=== PATIENT | female | born 1940 | race Caucasian/White ===

== ENCOUNTER → 2018-05-25 16:00 | Outpatient (CLI) | payer MEDICARE, OTHER, SELFPAY ==
--- NOTE | 2018-05-25 16:05 | MR_ITS ---
MR lumbar spine wo con, MR 3-d myelogram/MRCP HISTORY: Low back pain with right leg pain ITS.REASON: ACUTE RIGHT SIDED BACK PAIN WITH SCIATICA, DDD LUMBAR ORDERING PHYSICIAN: Geovany Wright MD PATIENT AGE: 77 years Comparison: None TECHNIQUE: Standard multiplanar multiecho sequences are performed without contrast. 3-D MIP and myelographic images are also rendered and reviewed FINDINGS: There is moderate lumbar scoliosis convex right measuring 28 degrees. This has a rotary component with counterclockwise rotation of the lumbar vertebral bodies from L1 to L5. Prominent artifact is present in the lower thoracic region. Spinal cord ends at the L1 level. T11-T12: Unremarkable. T12-L1: Unremarkable T12-L1: Unremarkable. L1-L2: Degenerative disc disease with bulging disc. This is the apex of the scoliosis. There is facet and ligamentum flavum hypertrophy with moderate right and moderate to severe left-sided foraminal narrowing with bilateral lateral recess narrowing. L2-L3: Mild concentric bulging disc along with moderate facet and ligamentum flavum hypertrophy with moderate to severe left-sided foraminal narrowing L3-L4: Degenerative disc disease with Concentric bulging disc with severe facet and ligamentum flavum hypertrophy. There is moderate to severe canal stenosis at this level with severe bilateral lateral recess narrowing and moderate bilateral foraminal narrowing. There is minimal anterolisthesis of L3 of 3 mm. L4-L5: 3 mm anterolisthesis of L4 with concentric bulging disc along with moderate to severe facet and ligamentum flavum hypertrophy with moderate canal stenosis. There is moderate right-sided foraminal narrowing L5-S1: Mild degenerative disc disease with bulging disc with minimal broad-based central disc protrusion. There is facet and ligamentum flavum hypertrophy with right-sided disc osteophyte complex with moderate to severe right-sided foraminal narrowing. Incidental note made of right renal cysts. IMPRESSION: Abnormal MRI of the lumbar spine with multilevel degenerative disc disease, moderate lumbar scoliosis convex right with facet and ligamentum flavum hypertrophy with lateral recess and foraminal narrowing and canal stenosis. Please see above for detailed description at each level. There is canal stenosis at L3-L4 and L4-L5. Small right foraminal disc osteophyte complex is present at L5-S1 with moderate to severe right-sided foraminal narrowing. Please see above for detailed description at each level
== END ==
PROVIDERS: PCP Internal Medicine Adolescent Medicine; Visit Provider Internal Medicine Adolescent Medicine
DX: M54.41 Lumbago with sciatica, right side (principal); M51.36 Other intervertebral disc degeneration, lumbar region
CPT/HCPCS: 72148; 76376

== ENCOUNTER → 2018-06-12 10:39 | Outpatient (POV) | payer MEDICARE, OTHER, SELFPAY ==
[2018-06-12 10:56] VITALS: BP 184/72; PULSE 77; RESP 18; O2SAT 98
--- NOTE | 2018-06-12 12:50 | HMH.PMCON ---
Assessment and Plan (1) Degenerative disc disease Current visit: Yes Status: Chronic Qualifiers: Spinal region: lumbar Qualified Code(s): M51.36 - Other intervertebral disc degeneration, lumbar region Category: Medical (2) Lumbar radiculopathy Current visit: Yes Status: Chronic Category: Medical Code(s): M54.16 - Radiculopathy, lumbar region - Assessment and plan all Dx Assessment and Plan for all problems:: We will schedule patient for an L4-L5 lumbar epidural steroid injection I believe it would be beneficial given her symptomology. I will follow-up with the patient after her injection and reassess her symptoms at that time. She is continuing her anti-inflammatories. She is been instructed to call the office if she has any issues prior to her next appointment. Dr. Anders has reviewed this note and agrees with this plan of care. This note was dictated using voice recognition software and may contain errors or omissions HPI - Data of Consult Consult date: 06/12/18 Requesting Physician: Afsaneh Salmon APRN Primary Care Provider: Geovany Wright MD - Consult Narrative Reason for consult: Back pain right leg pain History of present illness: Ms. Price is a 77 year old female presents today for consultation in regards to her low back and right leg pain. Patient states that standing for long periods increase her pain while rest and Motrin decrease her pain. She rates her pain a 4 out of 10. She is trying to stay as active possible and continues a home stretching program. Patient does have an abnormal MRI. Patient states that her pain radiates from her back down to her right foot. She does have some numbness and tingling at times. She is not on any anticoagulation therapy. She is currently on an anti-inflammatory regimen. CC: Afsaneh Salmon APRN [facility] History I have reviewed the patient's past medical history: Yes Medical History: Reports:: Hypertension Denies:: Diabetes Mellitus Type 2 - *Social History Smoking Status: Unknown if ever smoked Alcohol Intake: never *Occupational Status:: other Housing: house Household Members: other *Travel in the last 8 weeks: None - Psychiatric History Expresses thoughts of harming self/others: None Suicide Plan Description: No Plan Family Hx:: Unable to obtain Review of Systems - Review of Systems ROS General: no recent weight change, no fever, no sleep disturbances Respiratory: no cough, no shortness of air, no recurring pulmonary infections Cardiovascular/Peripheral Vascular: No chest pain, No palpitations, no edema, no shortness of breath. Gastrointestinal: no incontinence, normal bowel movements reported Genitourinary: no incontinence Musculoskeletal: Back pain, right leg pain Psychiatric: normal mood/ affect Neurological: [denies weakness in extremities], [denies balance issues] Meds Allergies Allergy/AdvReac Type Severity Reaction Status Date / Time No Known Drug Allergies Allergy Unknown Unverified 03/21/17 14:06 [NKDA] Objective Vital signs: Pulse Resp BP Pulse Ox 77 18 184/72 H 98 06/12/18 10:56 06/12/18 10:56 06/12/18 10:56 06/12/18 10:56 Narrative: Physical Exam General: Alert and oriented x3, no acute distress, pleasant and cooperative, [on room air] Lungs: Resps E/U, Symmetrical chest expansion, Eyes: PERRL Musculoskeletal: Flexion and extension of Lumbar spine somewhat guarded secondary to pain, deep tendon reflexes normal, strength in upper and lower extremities [5/5], [abnormal gait noted] positive straight leg raise test on the right side at 30 degrees Neurological: speech clear, business continuity coordinator equal, no gross sensory deficits Opioid Risk Tool - Opioid Risk Tool-Female Family hx alcohol abuse: N Family hx illegal drugs: N Family hx rx drug abuse: N Personal hx alcohol abuse: N Personal hx illegal drugs: N Personal hx rx drug abuse: N Age: 45+ Hx of
--- NOTE | 2018-06-12 12:53 | P.CONS_ITS ---
Assessment and Plan (1) Degenerative disc disease Current visit: Yes Status: Chronic Qualifiers: Spinal region: lumbar Qualified Code(s): M51.36 - Other intervertebral disc degeneration, lumbar region Category: Medical (2) Lumbar radiculopathy Current visit: Yes Status: Chronic Category: Medical Code(s): M54.16 - Radiculopathy, lumbar region - Assessment and plan all Dx Assessment and Plan for all problems:: We will schedule patient for an L4-L5 lumbar epidural steroid injection I believe it would be beneficial given her symptomology. I will follow-up with the patient after her injection and reassess her symptoms at that time. She is continuing her anti-inflammatories. She is been instructed to call the office if she has any issues prior to her next appointment. Dr. Anders has reviewed this note and agrees with this plan of care. This note was dictated using voice recognition software and may contain errors or omissions HPI - Data of Consult Consult date: 06/12/18 Requesting Physician: Afsaneh Salmon APRN Primary Care Provider: Geovany Wright MD - Consult Narrative Reason for consult: Back pain right leg pain History of present illness: Ms. Price is a 77 year old female presents today for consultation in regards to her low back and right leg pain. Patient states that standing for long periods increase her pain while rest and Motrin decrease her pain. She rates her pain a 4 out of 10. She is trying to stay as active possible and continues a home stretching program. Patient does have an abnormal MRI. Patient states that her pain radiates from her back down to her right foot. She does have some numbness and tingling at times. She is not on any anticoagulation therapy. She is currently on an anti-inflammatory regimen. CC: Afsaneh Salmon APRN [facility] History I have reviewed the patient's past medical history: Yes Medical History: Reports:: Hypertension Denies:: Diabetes Mellitus Type 2 - *Social History Smoking Status: Unknown if ever smoked Alcohol Intake: never *Occupational Status:: other Housing: house Household Members: other *Travel in the last 8 weeks: None - Psychiatric History Expresses thoughts of harming self/others: None Suicide Plan Description: No Plan Family Hx:: Unable to obtain Review of Systems - Review of Systems ROS General: no recent weight change, no fever, no sleep disturbances Respiratory: no cough, no shortness of air, no recurring pulmonary infections Cardiovascular/Peripheral Vascular: No chest pain, No palpitations, no edema, no shortness of breath. Gastrointestinal: no incontinence, normal bowel movements reported Genitourinary: no incontinence Musculoskeletal: Back pain, right leg pain Psychiatric: normal mood/ affect Neurological: [denies weakness in extremities], [denies balance issues] Meds Allergies Allergy/AdvReac Type Severity Reaction Status Date / Time No Known Drug Allergies Allergy Unknown Unverified 03/21/17 14:06 [NKDA] Objective Vital signs: Pulse Resp BP Pulse Ox 77 18 184/72 H 98 06/12/18 10:56 06/12/18 10:56 06/12/18 10:56 06/12/18 10:56 Narrative: Physical Exam General: Alert and oriented x3, no acute distress, pleasant and cooperative, [on room air] Lungs: Resps E/U, Symmetrical
== END ==
PROVIDERS: PCP Internal Medicine Adolescent Medicine; Visit Provider Clinical Nurse Specialist Family Health
DX: M51.16 Intervertebral disc disorders with radiculopathy, lumbar region (principal)
CPT/HCPCS: 99202

== ENCOUNTER → 2018-07-30 14:30 | Outpatient (POV) | payer MEDICARE, OTHER, SELFPAY ==
[2018-07-30 14:59] VITALS: BP 162/87; PULSE 81; RESP 18; O2SAT 98; BMI 26.2
--- NOTE | 2018-07-30 15:15 | XR_ITS ---
XR knee RT 3V HISTORY: ITS.REASON: RT KNEE PAIN ORDERING PHYSICIAN: Afsaneh Salmon APRN PATIENT AGE: 77 years COMPARISON: None FINDINGS: No fracture or dislocation. No lytic or blastic change. Normal mineralization. There are mild osteoarthritic changes of the lateral compartment. Small suprapatellar effusion is suspected. No other significant findings IMPRESSION: Mild osteoarthritis of lateral compartment
--- NOTE | 2018-07-31 08:27 | P.CONS_ITS ---
[facility] Pain Management SOAP Note Subjective:: Patient is a pleasant 77-year-old white female who presents today for follow-up after lumbar epidural steroid injection. Patient states that the radiating pain down her right leg has gone away however she is having extreme knee pain at this time. Patient states that difficult for her to get around. Patient does not have any imaging of her knee. We will send her for some today. She rates her pain in her knee a 9 out of 10. ROS General: no recent weight change, no fever, no sleep disturbances Respiratory: no cough, no shortness of air, no recurring pulmonary infections Cardiovascular/Peripheral Vascular: No chest pain, No palpitations, no edema, no shortness of breath. Gastrointestinal: no incontinence, normal bowel movements reported Genitourinary: no incontinence Musculoskeletal: Right knee pain Psychiatric: normal mood/ affect Neurological: [denies weakness in extremities], [denies balance issues] Objective:: Physical Exam General: Alert and oriented x3, no acute distress, pleasant and cooperative, [on room air] Lungs: Resps E/U, Symmetrical chest expansion, [CTA bilateral] Eyes: PERRL Musculoskeletal: Flexion and extension of lumbar spine somewhat guarded secondary to pain, deep tendon reflexes normal, strength in upper and lower ex tremities [5/5], [abnormal gait noted] decreased range of motion right knee Neurological: speech clear, senior field service engineer equal, no gross sensory deficits Assessment:: Degenerative disc disease lumbar spine with lumbar radiculopathy, right knee pain Plan:: We will send the patient for x-ray I believe she may benefit from going to see Ortho in regards to her knee pain. I believe that would be beneficial before she returns we can continue to discuss her back pain.. Dr. Anders has reviewed this note and agrees with this plan of care. This note was dictated using voice recognition software and may contain errors or omissions
== END ==
PROVIDERS: PCP Internal Medicine Adolescent Medicine; Visit Provider Clinical Nurse Specialist Family Health
DX: M51.16 Intervertebral disc disorders with radiculopathy, lumbar region (principal); M25.561 Pain in right knee
CPT/HCPCS: 73562; 99212

== ENCOUNTER → 2018-11-06 12:59 | Outpatient (CLI) | payer MEDICARE, OTHER, SELFPAY ==
--- NOTE | 2018-11-06 13:09 | XR_ITS ---
XR DEXA axial skeleton HISTORY: ITS.REASON: POST MENOPAUSAL ORDERING PHYSICIAN: Geovany Wright MD PATIENT AGE: 77 years COMPARISON: None FINDINGS: The BMD measured at the Femur total right femoral neck is 0.670 g/cm squared with a T score of -2.7. This is considered Osteoporotic according to the World Health Organization criteria. Fracture risk is High. Treatment is advised. IMPRESSION: Osteoporosis with high fracture risk. Treatment is advised. Suggest follow-up exam November 2019. Incidental note is made of lumbar scoliosis convex right.
== END ==
PROVIDERS: PCP Internal Medicine Adolescent Medicine; Visit Provider Internal Medicine Adolescent Medicine
DX: Z13.820 Encounter for screening for osteoporosis (principal); Z78.0 Asymptomatic menopausal state
CPT/HCPCS: 77080

== ENCOUNTER → 2018-11-20 13:55 | Outpatient (CLI) | payer MEDICARE, OTHER, SELFPAY ==
--- NOTE | 2018-11-20 13:59 | XR_ITS ---
PROCEDURE: XR KNEE RT 4V CLINICAL INDICATION: right knee pain; preop for TKA COMPARISON: from 07/30/2018 FINDINGS: There are severe osteoarthritic changes of the lateral compartment with mild flattening of the lateral femoral condyle. These findings are slightly worse compared to 07/30/2018. Osteosclerosis is present at the lateral femoral condyle and lateral tibial plateau. There is mild osteoarthritis of the patellofemoral joint with a small knee joint effusion. 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
--- NOTE | 2018-11-20 13:59 | XR_ITS ---
PROCEDURE: XR HIP RT 2-3V W/PELVIS CLINICAL INDICATION: right hip pain COMPARISON: No exams were available for comparison FINDINGS: There are mild osteoarthritic changes of the right hip. No fracture or dislocation. No lytic or blastic change. Incidental note also made of mild osteoarthritis of the SI joints. 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
== END ==
PROVIDERS: PCP Internal Medicine Adolescent Medicine; Visit Provider Orthopaedic Surgery
DX: M25.551 Pain in right hip (principal); M17.11 Unilateral primary osteoarthritis, right knee
CPT/HCPCS: 73502; 73564

== ENCOUNTER → 2018-11-27 12:24 | Outpatient (CLI) | payer MEDICARE, OTHER, SELFPAY ==
--- NOTE | 2018-11-27 12:32 | XR_ITS ---
PROCEDURE: XR CHEST 2V CLINICAL HISTORY: HTN, PRE OP COMPARISON: No exams were available for comparison FINDINGS: The cardiomediastinal silhouette and pulmonary vascularity are within normal limits. The lungs are clear without infiltrates, suspicious nodules, or pleural effusions. No acute bony abnormalities. IMPRESSION: No acute findings. Dictated by: Shawn Reece MD 11/27/2018 13:23 Signed by: <Electronically signed by Shawn Reece MD in OV> 11/27/2018 13:23
[2018-11-27 13:11] LABS: Microscopic, Urine URINE MICROSCOPIC (MICROSCOPIC)
[2018-11-27 14:43] LABS: Appearance,Urine CLEAR (Clear); Bilirubin,Urine Negative (Negative); Blood, Urine Negative (Negative); Color,Urine YELLOW (Yellow); Glucose,Urine (UA) Negative (Negative); Ketones,Urine Negative (Negative); Leukocyte Esterase,Urine TRACE (Negative); Nitrate,Urine Negative (Negative); PH,Urine 5.5 (5.0-8.5); Protein,Urine Negative (Negative); Urobilinogen,Urine 0.2 EU/dl (0.2)
[2018-11-27 15:01] LABS: Basophils % 0.5 % (0.1-2.0); Eosinophils # 0.2 K/mm3 (0.0-0.4); Eosinophils % 3.8 % (0.1-12.0); Hematocrit 37.8 % (37.0-47.0); Hemoglobin 12.1 g/dL (12.2-16.2); Lymphocytes # 1.7 K/mm3 (0.7-4.5); Lymphocytes % 28.6 % (10-50); Mean Corpuscular Hemoglobin 29.4 pg (27.0-31.2); Mean Corpuscular Volume 91.7 fl (81-99); Mean Platelet Volume 7.9 fl (7.4-10.4); Monocytes # 0.4 K/mm3 (0.1-1.0); Monocytes % 6.3 % (1.7-9.3); Neutrophils # 3.6 K/mm3 (1.8-7.8); Neutrophils % 60.8 % (37.0-80.0); Platelet Count 172 K/mm3 (142-424); Red Blood Count 4.13 M/mm3 (4.20-5.40); Red Cell Distribution Width 15.1 % (11.5-17.5); White Blood Count 5.8 K/mm3 (4.8-10.8)
[2018-11-27 15:02] LABS: Bacteria,Urine 1+ /lpf
[2018-11-27 15:50] LABS: Alanine Aminotransferase 16 U/L (12-78); Albumin Level 3.7 gm/dL (3.4-5.0); Albumin/Globulin Ratio 1.5 (1.1-1.8); Alkaline Phosphatase 66 U/L (46-116); Anion Gap 14.8 mEq/L (5-15); Aspartate Amino Transferase 15 U/L (15-37); Bilirubin,Total 0.3 mg/dL (0.2-1.0); Blood Urea Nitrogen 23 mg/dL (7-18); Calcium 8.6 mg/dL (8.5-10.1); Carbon Dioxide 25 mmol/L (21.0-32.0); Chloride 106 mmol/L (98-107); Creatinine,Serum 1.49 mg/dL (0.55-1.02); Estimated Glomerular Filt Rate 34 ml/min (>60); GFR (African American) 41 ML/MIN (>60); Globulin 2.5 gm/dl (1.3-3.2); Glucose 89 mg/dL (74-106); Potassium 4.8 mmoL/L (3.5-5.1); Sodium 141 mmol/L (136-145); Total Protein,Serum 6.2 gm/dL (6.4-8.2)
== END ==
PROVIDERS: PCP Internal Medicine Adolescent Medicine; Visit Provider Orthopaedic Surgery
DX: Z01.818 Encounter for other preprocedural examination (principal); M17.11 Unilateral primary osteoarthritis, right knee
CPT/HCPCS: 36415; 71046; 80053; 81001; 85025; 86850

== ENCOUNTER → 2018-12-16 09:31 | Outpatient (CLI) | payer MEDICARE, OTHER, SELFPAY ==
[2018-12-16 10:19] LABS: Basophils % 0.8 % (0.1-2.0); Eosinophils # 0.2 K/mm3 (0.0-0.4); Hematocrit 39.1 % (37.0-47.0); Hemoglobin 12.6 g/dL (12.2-16.2); Lymphocytes # 1.3 K/mm3 (0.7-4.5); Lymphocytes % 27.6 % (10-50); Mean Corpuscular HGB Conc 32.2 g/dL (31.8-35.4); Mean Corpuscular Hemoglobin 29.5 pg (27.0-31.2); Mean Corpuscular Volume 91.5 fl (81-99); Mean Platelet Volume 8.2 fl (7.4-10.4); Monocytes # 0.3 K/mm3 (0.1-1.0); Monocytes % 7.1 % (1.7-9.3); Neutrophils # 2.8 K/mm3 (1.8-7.8); Neutrophils % 60.6 % (37.0-80.0); Platelet Count 169 K/mm3 (142-424); Red Blood Count 4.27 M/mm3 (4.20-5.40); White Blood Count 4.7 K/mm3 (4.8-10.8)
[2018-12-16 10:29] LABS: Alanine Aminotransferase 17 U/L (12-78); Albumin Level 3.9 gm/dL (3.4-5.0); Albumin/Globulin Ratio 1.3 (1.1-1.8); Alkaline Phosphatase 71 U/L (46-116); Anion Gap 13.8 mEq/L (5-15); Aspartate Amino Transferase 17 U/L (15-37); Bilirubin,Total 0.5 mg/dL (0.2-1.0); Blood Urea Nitrogen 28 mg/dL (7-18); Calcium 8.9 mg/dL (8.5-10.1); Carbon Dioxide 26 mmol/L (21.0-32.0); Chloride 105 mmol/L (98-107); Creatinine,Serum 1.24 mg/dL (0.55-1.02); Estimated Glomerular Filt Rate 42 ml/min (>60); GFR (African American) 51 ML/MIN (>60); Glucose 94 mg/dL (74-106); Potassium 4.8 mmoL/L (3.5-5.1); Sodium 140 mmol/L (136-145); Total Protein,Serum 6.9 gm/dL (6.4-8.2)
== END ==
PROVIDERS: PCP Internal Medicine Adolescent Medicine; Visit Provider Orthopaedic Surgery
DX: Z01.818 Encounter for other preprocedural examination (principal)
CPT/HCPCS: 36415; 80053; 85025; 86850

== ENCOUNTER 2018-12-17 10:34 | Inpatient (IN) ==
[2018-12-17 12:01] LABS: Microscopic, Urine URINE MICROSCOPIC (MICROSCOPIC)
--- NOTE | 2018-12-17 12:01 | Progress Note ---
[facility] Anesthesia Checklist - Patient Identification Patient Identification: Arm Band, Verbal (Name & ) - Structural Data Admitted From: Home Planned Operative Procedure/s: Right TKA Consent for Planned Operative Procedure(s) Verified: Yes Verified Documents: Surgical Consent, History and Physical - NPO Status Verified Time NPO: 00:00 - Chart Verification Results Verified: CBC, BMP, UA - Additional verifications Anesthesia Reactions: No Hx Blood Transfusions: Yes Blood Transfusion Reaction: No - Airway Assessment C-Spine Mobility Assessed: Yes TMJ Mobility Assessed: Yes Dentition: Dentures-good fit (Upper denture, lower missing teeth) - Neurological Assessment Level of Consciousness: Awake, Alert, Appropriate, Follows Commands Hx Seizures: No Numbness or tingling in extremities: No - Anesthesia Plan Anesthesia Risk discussed: Yes Anesthesia Plan: Verified ASA Class: II Anesthesia Type: General (with Femoral/sciatic nerve block) [facility] History I have reviewed the patient's past medical history: Yes Medical History: Reports:: Cancer (melanoma), Hyperlipidemia, Hypertension Denies:: Diabetes Mellitus Type 1, Diabetes Mellitus Type 2, Internal Pacemaker, MRSA, Seizures *Have you ever received a pneumonia vaccine?: No *Have you received a flu vaccine this season?: Yes Other Medical History: Reports: Anemia, Arthritis, Hypothyroidism. Denies: Blood Transfusion Reaction Anesthesia experience/problems:: no complications Other Surgeries: Yes: Appendectomy, Colonoscopy, Hysterectomy-Total. No: Pacemaker Amputation: No Fractures: No - *Social History Educational Level: Attended High School Smoking Status: Never smoker Alcohol Intake: never Substance Use Type: denies use *Occupational Status:: retired Housing: house Household Members: other *Travel in the last 8 weeks: None Family Hx:: No significant family history
[2018-12-17 12:02] LABS: Appearance,Urine CLEAR (Clear); Bilirubin,Urine Negative (Negative); Blood, Urine Negative (Negative); Color,Urine YELLOW (Yellow); Glucose,Urine (UA) Negative (Negative); Ketones,Urine TRACE (Negative); Leukocyte Esterase,Urine Negative (Negative); Protein,Urine Negative (Negative); Specific Gravity, Urine 1.015 (1.005-1.030); Urobilinogen,Urine 0.2 EU/dl (0.2)
[2018-12-17 12:32] LABS: Bacteria,Urine Trace /lpf; WBC,Urine Occasional #/hpf (0-3)
--- NOTE | 2018-12-17 16:58 | Progress Note ---
[facility] Anesthesia Record Part II Discharge Time: 17:18 Destination: Surgical Day Care (OP Surgery) PACU nurse assessment reviewed?: Yes Patient Condition:: Good Anesthesia Complications:: None Swallowing reflex intact?: Yes Cyanosis?: No
--- NOTE | 2018-12-17 16:58 | Progress Note ---
[facility] Anesthesia Record Part I Intake, IV Amount: 1,700 Estimated blood loss (mL): 50 Urine output (mL): 300 Blood Products used (#): none Blood Pressure: 132/76 SaO2: 98 Pulse Rate: 80 Respiratory Rate: 20 Temperature: 98.3 F Patient is:: Nasal O2, Stable Stable to PACU at:: 16:48
--- NOTE | 2018-12-17 17:18 | Operative Note ---
Date of procedure: 12/17/18 Pre-op Diagnosis:: Advanced degenerative arthritis, right knee Post-op Diagnosis:: Same Procedure performed:: Cemented total knee arthroplasty, right Surgeon:: Jorge Dutta MD News Technical Director(s):: Tiara Das TUBE BLOWER:: Geovany Casper Anesthesia: GETA, regional (Sciatic and femoral nerve blocks) Estimated blood loss (mL): 50 Clinical Note:: Patient is a 77-year-old female with end-stage [id number] predominantly lateral compartment osteoarthritis of the RIGHT knee with a progressive valgus deformity and flexion contracture presented with unremitting severe pain not relieved by conservative management. The pain is advanced to the point that it is becoming a hazard for her with risk of falling and injuring herself. A Total Knee Arthroplasty is indicated to relieve the pain, improve function, reduce the risk of falls and improve quality of life. Please refer to my office note for full details. Operative findings:: As noted on the preoperative evaluation, the knee joint had 10 degrees of fixed flexion and 10 degrees fixed valgus deformity. Preoperative knee range of flexion under anesthesia was 10-115 of flexion only. As seen on the x-rays, there are advanced degenerative changes predominantly involving the lateral and patellofemoral compartments. The menisci and cruciate ligaments are significantly degenerated. There is osteophyte formation over all 3 compartments. Overall bone quality is good. Operative note:: On the day of the surgery the patient and her family were seen in the preoperative area. I have reviewed the clinical and x-ray findings with the patient. I again discussed the diagnosis, natural history and management options in detail including both nonsurgical and surgical. She has end-stage degenerative arthritis of her RIGHT knee and has failed to respond satisfactorily to conservative management so far and has opted for a RIGHT total knee arthroplasty. Her right knee joint is stiff and painful, and is limiting her mobility, ADLs and quality of life. Also her right knee gives out and she is at risk of falls resulting in fractures. She mobilizes with a cane as needed. We again discussed the details of the procedure, risks and benefits and alternatives in detail. The complications discussed include but are not limited to infection, injury to nerves and blood vessels including injury to popliteal artery, injury to tendons and ligaments, DVT and PE, fat embolism, intraoperativ e fracture, limb length inequality, patella fracture, patellofemoral instability, patellar clunk syndrome, quadriceps and patellar tendon rupture, implant failure, component loosening, periprosthetic femur and tibia fractures, stiffness(arthrofibrosis), limp, incomplete relief of pain, incomplete functional recovery, likely need for further surgery in future including revision and anesthetic complications including heart attack, stroke and even . We have discussed the likelihood of needing blood transfusion and the adverse effects thereof. We discussed how any of these events can be dev astating. We have discussed nonsurgical alternatives as well. Patient understands wishes to proceed with a RIGHT total knee arthroplasty and I believe that she is fully informed as to the risks, benefits, and alternatives including nonsurgical alternatives. We also discussed the postoperative course including the rehab and physical therapy required. A physical examination was performed and documented. Patient understood the risks, agreed to proceed with surgery, signed the consent form and no guarantees or assurances were given or implied. The limb was appropriately marked and initialed by me. The patient was then brought to the operating room and a general anesthesia was administered by the hand etcher. Prior to that she had femoral and sciatic nerve blocks in the pre-anesthetic area. The patient was then positioned supine on the operating table. All the bony prominences were appropriately padded. Examination of the right knee joint under anesthesia demonstrated 10 degrees of valgus deformity which is partially correctable. She also has 10 degrees of flexion deformity and flexion range is from 10 degrees to 115 degrees. Knee joint is ligamentously stable. A well-padded tourniquet cuff was placed high over the upper thigh. The RIGHT knee was then prepped with isopropyl alcohol followed by chlorhexidine and draped in the usual sterile fashion. Prior to this, patient had used Hibiclens for a total of 5 days prior to the surgery and also used topical intranasal Bactroban. The entire operative team wore isolation suits and the Operating Room traffic was controlled. The skin incision was marked for a medial parapatellar approach to the knee joint. The entire operative site was sealed off with Ioban drape. A preprocedure timeout was performed as per hospital protocol. At the start of the procedure administration of prophylactic antibiotics (Ancef and vancomycin) was confirmed with the hand etcher. One more gram of Ancef was administered at around 2 hours into the surgery. Also patient received 1 g of IV tranexamic acid before starting the procedure and 1 more gram during wound closure to reduce the postoperative blood loss. A preprocedure timeout was performed as per hospital protocol. The limb was exsanguinated with Esmarch bandage, the knee joint flexed beyond 90 and the tourniquet cuff was inflated to 300 mm Hg. Please see the nursing records for a total tourniquet time. I then made a midline incision utilizing a #10 scalpel blade. Electrocautery was used to seal off subcutaneous vessels. The extensor mechanism was exposed, marked and a curvilinear incision made for a medial parapatellar approach using the scalpel blade. The patella was everted carefully and the fat pad resected to allow sufficient visualization of the proximal tibia. Osteophyte formation was noted mainly over the patellofemoral and lateral compartments. The osteophytes were removed with rongeurs. The intercondylar notch also had osteophytes and the anterior cruciate ligament noted to be degenerate. The menisci were also degenerate and the anterior aspects of both menisci were resected. Only a minimal medial release was performed just enough to expose the top of the tibia and the medial osteophytes which were excised. The Annamarie line and epicondylar axis were marked over the distal femur. A step drill was used to open the intramedullary canal; a sli ghtly medial entry point was chosen and the IM distal femoral cutting jig was placed. The jig was pinned into position and the intramedullary karen removed. The distal cut was made at 6 degrees of valgus. This cut sufficient amount of the distal medial and lateral condyles. Then the posterior referencing sizing jig was placed and sized best at a size 7 femur for the Jono persona system. We then placed the 4-in-1 cutting block in position in 3 degrees of external rotation. Cross pins were added for stabilizing the block and the donny wing utilized to ensure notching of the anterior cortex would not occur. The anterior cut was made followed by the posterior cut then the posterior chamfer and finally the anterior chamfer cuts in that order. Soft tissues were protected during this with careful retraction using the Z retractors. We checked for trueness of cuts and then moved on to the tibia. The extra medullary guide was placed and aligned from the medial one third of the tibial tubercle down to the second metatarsal base. We pinned cutting block in position for minimal resection of the tibia from the lateral side which was more severely involved with arthritis, checked the alignment, protected the soft tissues with appropriate retractors and resected with the Jaspreet saw. The resected tibial plateau articular surface was removed and sized it at a size H. We ensured correctness of the cut and correct posterior slope (5 degrees) and carefully preserved the posterior cruciate ligament. Using the laminar wirer passenger car to distract the bones, we carefully resected the remaining portions of the medial and lateral menisci, removed the osteophytes from the posterior femoral condyles and the tibial plateau. I then tried placing the spacer block and noted the space to be too narrow in both flexion and extension. Therefore, I recut the tibia at +4 using the previous pinholes for the cutting block. I then checked the flexion and extension gaps using the 10 mm spacer block and found them to be tight on the lateral side. I then performed appropriate lateral releases with pie crusting technique, first of the lateral collateral ligament and popliteus. I also slightly recessed the PCL and performed posterior capsular release. This gave us a stable and well balanced flexion gap. The knee was still tight in extension. Therefore, I performed a pie crusting of the iliotibial band which gave us a sufficient lateral release balancing the knee in both flexion and extension. During the process of lateral release, I checked the flexion and extension gaps repeatedly to make sure we did not create an unstable knee. I then placed the femoral and tibial trial inserts and ranged the knee through full flexion and extension and noted it to be stable in both flexion and extension with equal and well balanced gaps. The patella was noted to be tracking centrally over the femoral trial implant. We then everted the patella and measured the thickness with calipers. The patella was sized at 32 mm and measured 23 mm thick. A minimal resection (8.5mm) of the patella was carried out using the appropriate cutting guide. I then made the holes for a 3 pegged patellar button using the patella peg drill guide. We had lateralized the femur and medialized the patella intentionally for a better patellar tracking. We placed trial components and noted that a 10 mm thick polyethylene to fit best. This gave us appropriate range of motion with proper ligamentous stability. We allowed this to be free-floating and then checked it and made sure it was in appropriate position in relation to the tibial tubercle. We also used tibial alignment karen to check for satisfactory position of the base plate and markings were made with electrocautery on the proximal tibia. We then completed the f emoral preparation by making lug holes for the femoral component and removed the trial components leaving the tibial base plate in position. I then pinned the tibial base plate to the top of the tibia in correct alignment and completed the drilling and broaching of the proximal tibia. I then placed an appropriately prepared bone plug into the hole in the distal femur. I then copiously irrigated the knee with pulse lavage and then dried the cut surfaces. We then cemented the tibial tray, the femoral component, and placed a 10 mm trial polyethylene insert and brought the knee into full extension. We then cemented the 3 pegged patellar button and held it with a clamp. We allowed the cement to set and then inspected the knee joint and removed excess cement with an osteotome. We then placed the 10 mm definitive polyethylene tibial insert ensuring that the dovetails fit appropriately and that the polyethylene was down and seated into the tibial tray properly. The knee joint was put through range of motion and noted to be stable in both AP and ML direction; the patella was noted to be tracking appropriately with no thumb technique. The knee was fully extending and flexion was up to 150 degrees on the table and was noted to be stable throughout the range of motion. The knee joint was then soaked with dilute Betadine (0.35 percent) solution for 3 minutes followed by suctioning of the solution and pulsatile lavage with the 1 L of normal saline. The tourniquet was deflated and hemostasis obtained with diathermy cautery. Another gram of tranexamic acid was given intravenously by t hand etcher at the time of wound closure. The knee joint was again thoroughly irrigated with the pulse lavage and good hemostasis was confirmed before proceeding with wound closure. The capsule/extensor mechanism was closed with #1 Vicryl [id number] sutures ensuring a watertight closure. Next the subcutaneous tissue was closed with 2-0 Vicryl interrupted sutures. The skin was closed with subcuticular 4-0 Monocryl sutures, Dermabond and Steri-Strips. Sterile dressings were applied consisting of Xeroform, 4 x 4s, ABDs, soft roll and secured in place with Guy wrap. No drains were placed. The patient was then transferred from the operating table onto the bed. The tibialis posterior and dorsalis pedis pulses were noted 2+ with good capillary refill in the foot. The patient was then reversed from the anesthetic and transported to the postoperative recovery area in a stable condition. Patient tolerated the procedure well and there were no immediate complications. The swab, needle and instrument counts were correct, according to the scrub team, at the end of the procedure. Portable x-rays of the RIGHT knee were obtained in the recovery area which showed the components were well fixed in a satisfactory position without any complications. The knee was placed in a knee immobilizer which should be continued when standing and walking, until she regains full quadriceps control. Postoperatively, institute and continue standard precautions and physical therapy for a standard total knee arthroplasty starting on postoperative day 1. Patient can be mobilized full weightbearing as tolerated. Implants: Jono Persona cruciate-retaining narrow femoral component, size 7, RIGHT Jono Persona, stemmed RIGHT tibial base plate- size E Jono Persona all poly-patellar component-32 mm/8.5 mm Jono Persona Vivacit-E highly cross-linked polyethylene medial Congruent articular surface, RIGHT size e-F/CR x 10 mm Biomet Refobacin bone cement R x2. Industry sales representative consultant: Doug Moreira ([employer]) Tourniquet time (min): 110 Condition: stable Disposition: PACU Specimens:: None Complications:: None
--- NOTE | 2018-12-17 17:39 | Consult Report ---
*Admission Date: 12/17/18 *Reason for consult:: Medical management status post right knee replacement *History of present illness: 77-year-old white female with history of thyroid disease, severe osteoarthritis of knees and remote history of temporal arteritis-now in remission, who underwent total knee replacement surgery this morning. She is doing well postoperatively, consulted for medical management. [facility] History I have reviewed the patient's past medical history: Yes Medical History: Reports:: Cancer (melanoma), Hyperlipidemia, Hypertension Denies:: Diabetes Mellitus Type 1, Diabetes Mellitus Type 2, Internal Pacemaker, MRSA, Seizures *Have you ever received a pneumonia vaccine?: No *Have you received a flu vaccine this season?: Yes Other Medical History: Reports: Anemia, Arthritis, Hypothyroidism. Denies: Blood Transfusion Reaction Anesthesia experience/problems:: no complications Other Surgeries: Yes: Appendectomy, Colonoscopy, Hysterectomy-Total. No: Pacemaker Amputation: No Fractures: No - *Social History Educational Level: Attended High School Smoking Status: Never smoker Alcohol Intake: never Substance Use Type: denies use *Occupational Status:: retired Housing: house Household Members: other *Travel in the last 8 weeks: None Family Hx:: No significant family history Review of Systems - Review of Systems Review of systems:: pertinent systems reviewed and negative unless documented below Meds Home Medications Medication Instructions Recorded Confirmed Type Aspirin [Aspir 81] 81 mg PO DAILY 06/22/18 12/17/18 History Calcium Crb,Cit/D3/Min34/Shawn 1 each PO DAILY 06/22/18 12/17/18 History [Citracal + Bone Density Tablet] Carvedilol [Carvedilol 25mg Tab] 25 mg PO BID 06/22/18 12/17/18 History Diclofenac Sodium [Diclofenac 75mg 75 mg PO BID 06/22/18 12/17/18 History Tab] Spironolactone 25 mg PO DAILY 06/22/18 12/17/18 History Chlorhexidine Gluconate 1 applic TOPICAL Q5M 12/14/18 12/17/18 History mupirocin 2 % nasal ointment 2 % INTRANASAL BID 12/14/18 12/17/18 History Levothyroxine Sodium 88 mcg PO DAILY 12/17/18 12/17/18 History [Levothyroxine 88mcg (0.088mg) Tab] Allergies Allergy/AdvReac Type Severity Reaction Status Date / Time adhesive Allergy Mild Rash Verified 12/17/18 17:32 Exam Vital signs and Labs for Last 24 Hours: Temp Pulse Resp BP Pulse Ox 98.3 F 80 20 132/76 97 12/17/18 16:58 12/17/18 16:58 12/17/18 16:58 12/17/18 16:58 12/17/18 11:11 Laboratory Results - last 24 hr 12/17/18 11:55: Urine Color Yellow, Urine Appearance Clear, Urine pH 7.0, Ur Specific [place] 1.015, Urine Protein Negative, Urine Glucose (UA) Negative, Urine Ketones Trace, Urine Blood Negative, Urine Nitrate Negative, Urine Bilirubin Negative, Urine Urobilinogen 0.2, Ur Leukocyte Esterase Negative, Urine RBC None, Urine WBC Occasional, Ur Squamous Epith Cells None, Urine Bacteria Trace I & O for Last 24 hours: Intake & Output 12/15/18 12/16/18 12/17/18 12/18/18 11:59 11:59 11:59 11:59 Intake Total 1700 / 1700 Balance 1700 / 1700 Weight 151 lb Narrative: Patient is sleepy postoperatively from anesthesia but when awakened is alert, recognizes me, oriented to time and place. ENT exam clear. No JVD. Heart rate regular. No murmurs, lungs clear in the anterior hayes, abdomen soft nontender. Good hydration status. Right leg is warm and well-perfused, left leg warm and well-perfused, compression devices on left leg. Able to move all extremities well. Internal Medicine - CN: Reslt - Labs Labs: Urine 12/17/18 Range/Units 11:55 Urine Color Yellow (Yellow) Urine Appearance Clear (Clear) Urine pH 7.0 (5.0-8.5) Ur Specific [place] 1.015 (1.005-1.030) Urine Protein Negative (Negative) Urine Glucose (UA) Negative (Negative) Assessment and Plan (1) Status post right knee replacement Current visit: Yes Status: Acute Category: Surgical Code(s): Z96.651 - Presence of right artificial knee joint Overall doing well, on appropriate anticoagulation therapy. Close follow-up (2) Hypothyroidism Current visit: Yes Status: Acute Category: Medical Code(s): E03.9 - Hypothyroidism, unspecified (3) Hypertension Current visit: Yes Status: Acute Category: Medical Code(s): I10 - Essential (primary) hypertension
[2018-12-18 06:51] LABS: Eosinophils % 0.2 % (0.1-12.0); Hematocrit 30.6 % (37.0-47.0); Hemoglobin 9.9 g/dL (12.2-16.2); Lymphocytes # 0.5 K/mm3 (0.7-4.5); Lymphocytes % 8.1 % (10-50); Mean Corpuscular HGB Conc 32.4 g/dL (31.8-35.4); Mean Corpuscular Volume 90.9 fl (81-99); Mean Platelet Volume 8.3 fl (7.4-10.4); Monocytes # 0.3 K/mm3 (0.1-1.0); Monocytes % 5.9 % (1.7-9.3); Neutrophils # 4.7 K/mm3 (1.8-7.8); Neutrophils % 85.8 % (37.0-80.0); Platelet Count 141 K/mm3 (142-424); Red Blood Count 3.36 M/mm3 (4.20-5.40); Red Cell Distribution Width 14.3 % (11.5-17.5); White Blood Count 5.5 K/mm3 (4.8-10.8)
[2018-12-18 07:13] LABS: Anion Gap 15.9 mEq/L (5-15)
[2018-12-18 07:30] LABS: Calcium 7.9 mg/dL (8.5-10.1)
--- NOTE | 2018-12-18 07:38 | Pharmacy Consult Notes ---
[facility] Pharmacy VTE Monitoring - Patient Demographics Admission date: 12/17/18 Report Date: 12/18/18 Time: 07:38 Allergies/Adverse Reactions: Patient Allergies adhesive Allergy (Mild, Verified 12/17/18 17:32) Rash Height: 1.6 m Weight: 70.931 kg Patient Problems: Current Active Problems Status post right knee replacement (Acute) Hypothyroidism (Acute) Hypertension (Acute) - VTE Risk Labs: VTE Related Lab Results Hgb 9.9 g/dL (12.2-16.2) L 12/18/18 06:02 Hct 30.6 % (37.0-47.0) L 12/18/18 06:02 Plt Count 141 K/mm3 (142-424) L 12/18/18 06:02 BUN 19 mg/dL (7-18) H D 12/18/18 06:02 Creatinine 1.10 mg/dL (0.55-1.02) H 12/18/18 06:02 Estimated Creat Clear 49 mL/min (50-200) 12/18/18 06:02 Was VTE Risk Assessment Performed: Yes VTE Score: 5 VTE Risk Level: Low Risk - Prophylaxis VTE Prophylaxis Ordered?: Yes Types of VTE Prophylaxis: IPCS Thigh High, Pharmacological Location of Applied Device: Bilateral Lower Extremeties Pharmacologic Type: Other (XARELTO) - VTE Diagnosis Confirmed Treatment or plan recommended: Continue Current Treatment
[2018-12-18 08:57] LABS: Lymphocytes % 3 % (10-50); Monocytes % 9 % (2-9); Neutrophils % 87 % (42-76); RBC Morphology Normal; Total Cells Counted 100
--- NOTE | 2018-12-18 09:03 | Progress Note ---
Internal Medicine - PN: Subj *Date: 12/18/18 *Time: 09:01 Interval history: Did well overnight. Pleasant on interview today. Denies significant pain. Has cryo wrap in place. Tolerating regular diet. No acute complaints Denies chest pain, shortness of breath, nausea, vomiting, diarrhea. Exam Vital signs and Labs for Last 24 Hours: Temp Pulse Resp BP Pulse Ox 99.0 F 77 16 131/57 L 94 L 12/18/18 04:00 12/18/18 04:00 12/18/18 04:00 12/18/18 04:00 12/18/18 04:00 Laboratory Results - last 24 hr 12/17/18 11:55: Urine Color Yellow, Urine Appearance Clear, Urine pH 7.0, Ur Specific [place] 1.015, Urine Protein Negative, Urine Glucose (UA) Negative, Urine Ketones Trace, Urine Blood Negative, Urine Nitrate Negative, Urine Bilirubin Negative, Urine Urobilinogen 0.2, Ur Leukocyte Esterase Negative, Urine RBC None, Urine WBC Occasional, Ur Squamous Epith Cells None, Urine Bacteria Trace 12/18/18 06:02: WBC 5.5, RBC 3.36 L, Hgb 9.9 L, Hct 30.6 L, MCV 90.9, MCH 29.5, MCHC 32.4, RDW 14.3, Plt Count 141 L, MPV 8.3, Neut % (Auto) 85.8 H, Lymph % (Auto) 8.1 L, Garvin % (Auto) 5.9, Eos % (Auto) 0.2, Baso % (Auto) 0.0 L, Neut # (Auto) 4.7, Lymph # (Auto) 0.5 L, Garvin # (Auto) 0.3, Eos # (Auto) 0.0, Baso # (Auto) 0.0, Total Counted 100, Neutrophils % (Manual) 87 H, Band Neutrophils % 1.0, Lymphocytes % (Manual) 3 L, Monocytes % (Manual) 9, Platelet Estimate Slight decrease, RBC Morphology Normal 12/18/18 06:02: Sodium 142, Potassium 3.9, Chloride 109 H, Carbon Dioxide 21, Anion Gap 15.9 H, BUN 19 H D, Creatinine 1.10 H, Estimated Creat Clear 49, Estimated GFR 48 L, Est GFR ( Amer) 59, Glucose 116 H, Calcium 7.9 L D I & O for Last 24 hours: Intake & Output 12/15/18 12/16/18 12/17/18 12/18/18 23:59 23:59 23:59 23:59 Intake Total 2059 Output Total 900 / 900 Balance 2059 -900 / -900 Weight 77.564 kg 70.931 kg Narrative: Alert and oriented x3. Pleasant on interview, no acute distress on room air ENT exam clear, No JVD Heart rate regular, No murmurs lungs clear in the anterior hayes, abdomen soft nontender Right leg is warm and well-perfused, left leg warm and well-perfused, compression devices on left leg. Able to move all extremities well, neurovascularly intact in distal extremities Assessment and Plan (1) Status post right knee replacement Current visit: Yes Status: Acute Category: Surgical Code(s): Z96.651 - Presence of right artificial knee joint (2) Hypothyroidism Current visit: Yes Status: Acute Category: Medical Code(s): E03.9 - Hypothyroidism, unspecified (3) Hypertension Current visit: Yes Status: Acute Category: Medical Code(s): I10 - Essential (primary) hypertension - Assessment and plan all Dx Assessment and Plan for all problems:: No change to medical management at this time. Continue home medications. Anticoagulation initiated with Xarelto. Plan to continue for 6 weeks postop for DVT prophylaxis. No changes today. Awaiting physical therapy assessment for disposition recommendations
--- NOTE | 2018-12-18 13:28 | Progress Note ---
Subjective Date: 12/18/18 Time: 12:45 Principal diagnosis: Status post total knee arthroplasty, right Interval history: Patient is status post [right [total knee arthroplasty, postoperative day 1. Patient is lying down on the bed. Patient says she is doing well and has very little pain. She says the paresthesias in her leg from the injection are wearing off. No history of any nausea or vomiting. No history of any cough, chest pain, shortness of breath or palpitations. Patient says she is eating and drinking well. She started mobilization with physical therapy this morning and says it went well. PN: Obj Ex Vital signs: Temp Pulse Resp BP Pulse Ox 98.9 F 73 17 115/70 98 12/18/18 12:00 12/18/18 12:00 12/18/18 12:00 12/18/18 12:00 12/18/18 12:00 Narrative: Laboratory Results - last 24 hr 12/18/18 06:02: WBC 5.5, RBC 3.36 L, Hgb 9.9 L, Hct 30.6 L, MCV 90.9, MCH 29.5, MCHC 32.4, RDW 14.3, Plt Count 141 L, MPV 8.3, Neut % (Auto) 85.8 H, Lymph % (Auto) 8.1 L, [place] % (Auto) 5.9, Eos % (Auto) 0.2, Baso % (Auto) 0.0 L, Neut # (Auto) 4.7, Lymph # (Auto) 0.5 L, [place] # (Auto) 0.3, Eos # (Auto) 0.0, Baso # (Auto) 0.0, Total Counted 100, Neutrophils % (Manual) 87 H, Band Neutrophils % 1.0, Lymphocytes % (Manual) 3 L, Monocytes % (Manual) 9, Platelet Estimate Slight decrease, RBC Morphology Normal 12/18/18 06:02: Sodium 142, Potassium 3.9, Chloride 109 H, Carbon Dioxide 21, Anion Gap 15.9 H, BUN 19 H D, Creatinine 1.10 H, Estimated Creat Clear 49, Estimated GFR 48 L, Est GFR ( Amer) 59, Glucose 116 H, Calcium 7.9 L D Intake & Output 09/15/19 09/16/19 09/17/19 09/18/19 11:59 11:59 11:59 11:59 Intake Total 2420 / 2420 Output Total 1100 / 1100 Balance 1320 / 1320 Weight 156 lb 6 oz Exam: General appearance: alert, active, awake Cardiovascular: regular rate & rhythm, normal peripheral pulses Respiratory: No respiratory distress noted, speaks in full sentences ABD: soft and non tender Neuro: alert, awake, oriented x 3 On examination of the lower extremities the limb lengths are equal. On examination of the right knee the dressings are clean, dry and intact. No bleeding or soakage noted. Calf is soft and nontender. Distal pulses are 2+. Capillary refill is brisk. Sensation is intact to light touch throughout. She is actively moving the ankle, foot and the toes. She is not able to actively straight leg raise yet. Diagnostic imaging: Postoperative x-rays of her right knee are showing total knee arthroplasty in satisfactory alignment and fixation. No complications noted on the x-rays. I have given a paper copy of the x-rays with the patient. - Urinary Catheter Management Storm Cath placed during this visit: yes Urethral indwelling: Yes Reason for continuing: Surgical procedure Insertion date: 12/17/18 Insertion time: 13:10 Progress Note: A&P (1) Status post right knee replacement Status: Acute Current Visit: Yes (2) Hypothyroidism Status: Acute Current Visit: Yes (3) Hypertension Status: Acute Current Visit: Yes Assessment and Plan for All Diagnoses:: I have reviewed the operative findings and procedure performed with the patient. On first postoperative day after surgery, she is doing well without any major problems. Advised her to avoid placing pillow behind the knee; use knee immobil izer when weightbearing and walking until she regains full quadriceps control and is able to actively straight leg raise. Patient was seen by PT today and started physical therapy and mobilization; continue standard protocol for a primary total knee replacement. Discontinue IV fluids as patient is eating and drinking well. Continue DVT prophylaxis and as needed pain medication. The catheter was removed this morning and she passed urine since. Care management consult regarding discharge planning. Continue medical management as per Dr. Wright.
--- NOTE | 2018-12-19 08:16 | Progress Note ---
Internal Medicine - PN: Subj *Date: 12/19/18 *Time: 08:15 Interval history: Internal medicine follow-up consult note: Patient did well overnight, pain is 5/10, some nausea from pain medicine but otherwise eating well, no problems breathing. Exam Vital signs and Labs for Last 24 Hours: Temp Pulse Resp BP Pulse Ox 98.2 F 74 18 99/42 L 95 12/19/18 08:00 12/19/18 08:00 12/19/18 08:00 12/19/18 08:00 12/19/18 08:00 Laboratory Results - last 24 hr 12/18/18 06:02: Total Counted 100, Neutrophils % (Manual) 87 H, Band Neutrophils % 1.0, Lymphocytes % (Manual) 3 L, Monocytes % (Manual) 9, Platelet Estimate Slight decrease, RBC Morphology Normal I & O for Last 24 hours: Intake & Output 12/16/18 12/17/18 12/18/18 12/19/18 11:59 11:59 11:59 11:59 Intake Total 2420 / 2420 1080 / 1080 Output Total 1100 / 1100 1350 / 1350 Balance 1320 / 1320 -270 / -270 Weight 156 lb 6 oz 155 lb 8 oz Narrative: Patient is alert, oriented x3. Pleasant. Talkative. No JVD. Lungs clear. Heart rate regular without murmurs. Abdomen soft and nontender. Neurologic exam intact, able to wiggle her toes. Good distal perfusion. No swelling in the ankles bilaterally. Assessment and Plan (1) Status post right knee replacement Current visit: Yes Status: Acute Category: Surgical Code(s): Z96.651 - Presence of right artificial knee joint (2) Hypothyroidism Current visit: Yes Status: Acute Category: Medical Code(s): E03.9 - Hypothyroidism, unspecified (3) Hypertension Current visit: Yes Status: Acute Category: Medical Code(s): I10 - Essential (primary) hypertension - Assessment and plan all Dx Assessment and Plan for all problems:: Echo condition stable, cardiopulmonary status unremarkable. Agree with discharge today with home health follow-up.
--- NOTE | 2018-12-19 13:19 | Progress Note ---
Subjective Date: 12/19/18 Time: 12:00 Principal diagnosis: Status post total knee arthroplasty, right Interval history: Patient is status post [right [total knee arthroplasty, postoperative day 2. Patient is sitting out on the chair. Says she is doing very well and reports very little pain with activity. She is only taking pain medication infrequently. He says she is mobilizing well with physical therapy. No history of any nausea or vomiting. No history of any cough, chest pain, shortness of breath or palpitations. Patient says she is eating and drinking well. PN: Obj Ex Vital signs: Temp Pulse Resp BP Pulse Ox 98.2 F 74 18 99/42 L 95 12/19/18 08:00 12/19/18 08:00 12/19/18 08:00 12/19/18 08:00 12/19/18 08:00 Narrative: Intake & Output 12/17/18 12/18/18 12/19/18 12/20/18 11:59 11:59 11:59 11:59 Intake Total 2420 / 2420 1080 / 1080 Output Total 1100 / 1100 1350 / 1350 Balance 1320 / 1320 -270 / -270 Weight 156 lb 6 oz 155 lb 8 oz Exam: General appearance: alert, active, awake Cardiovascular: regular rate & rhythm, normal peripheral pulses Respiratory: No respiratory distress noted, speaks in full sentences ABD: soft and non tender Neuro: alert, awake, oriented x 3 On examination of the lower extremities the limb lengths are equal. On examination of the right knee the dressings are clean, dry and intact. I have changed the dressings today and the incision is clean, dry and healthy. No bleeding, discharge or soakage of dressings noted. Calf is soft and nontender. Distal pulses are 2+. Capillary refill is brisk. Sensation is intact to light touch throughout. She is actively moving the ankle, foot and the toes. She is just about able to actively straight leg raise. - Urinary Catheter Management Storm Cath placed during this visit: yes Urethral indwelling: Yes Reason for continuing: Surgical procedure Insertion date: 12/17/18 Insertion time: 13:10 Progress Note: A&P (1) Status post right knee replacement Status: Acute Current Visit: Yes (2) Hypothyroidism Status: Acute Current Visit: Yes (3) Hypertension Status: Acute Current Visit: Yes Assessment and Plan for All Diagnoses:: I have reviewed the findings and progress with the patient. She is doing very well and progressing as expected from her surgery. I have again advised her to avoid placing pillow behind the knee; use knee immobilizer when weightbearing and walking until she regains full quadriceps control and is able to actively straight leg raise. Continue PT, OT and mobilization; continue standard protocol for a primary total knee replacement. Continue DVT prophylaxis and as needed pain medication. Patient is planning to go home with home health. I will discharge her once she is cleared by physical therapy. Follow-up in the office in 2 weeks time.
--- NOTE | 2018-12-20 11:04 | Discharge Summary ---
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 She has not responded well to conservative management including NSAID, Tylenol and intra-articular injections in the past. She is using assistive walking devices. Total knee arthroplasty is indicated to reduce the risk of falls, improve her pain and mobility and quality of life. The surgical and nonsurgical alternatives were discussed in detail with the patient as well as the risks and benefits of the surgery. Hospital Course Hospital Course: Patient underwent an uncomplicated straightforward primary right total knee arthroplasty on 12/17/2018. Following surgery patient progressed well without any complications. Her postoperative check x-ray was satisfactory with good alignment and fixation of the components. She progressed rapidly with physical therapy and was able to mobilize using a walker. At the time of discharge she still has not regained good quadriceps control and was advised to mobilize with the knee immobilizer until she fully regains quadriceps control and is able to actively straight leg raise. Her pain is well controlled with as needed oral Percocet. The dressings were reduced on the second postoperative day and the wound is healthy and healing well. No signs of any erythema, induration or discharge. Patient was started on Xarelto 10 mg daily for DVT prophylaxis after surgery. Her neurovascular status in both lower extremities is intact. Pedal pulses 2+ bilaterally and fully sensate distally. No clinical evidence of DVT noted. Patient was cleared for discharge by physical therapy. On the day of discharge, the patient has been stable. Patient's vital signs have been stable throughout and she is afebrile at the time of discharge. She is being discharged home with home health. During her admission to the hospital she was also seen by Dr. Wright for management of medical problems. Prior to discharge Dr. Wright also cleared her for discharge from a medical standpoint. Condition at discharge: improved and stable. Treatments and Procedures: Total knee arthroplasty, RIGHT knee; date of surgery 12/17/2018. Objective Vital signs: Temp Pulse Resp BP Pulse Ox 98.6 F 86 18 141/75 H 98 12/20/18 08:00 12/20/18 08:00 12/20/18 08:00 12/20/18 08:00 12/20/18 08:00 no acute distress, cooperative - *Routine HEENT Exam Head: Present: normocephalic, atraumatic Eye: Present: EOMI ENT: Present: mucous membranes moist - *Routine Neck Exam Present: supple, full ROM, trachea midline - *Routine Respiratory Exam Present: CTA bilaterally - *Routine Cardiovascular Exam Present: RRR, Normal S1, Normal S2 - *Routine Abdominal Exam Present: soft, normoactive bowel sounds. Absent: tenderness - *Routine Extremities Exam Comments: On examination of the right knee, the dressing is in place and is clean, dry and intact. There is no erythema or discharge. There is diffuse swelling and some tenderness over the knee joint as to be expected at this stage. Knee range of motion is [5-90] of flexion. Distal pulses are 2+. Capillary refill is brisk. Sensation is intact to light touch throughout. Thigh and calf are soft and there is mild tenderness over the distal thigh. There is also 1+ edema of the right leg, ankle and foot. Patient demonstrates good range of foot and ankle movements. The quadriceps muscle is actively hung. Patient is barely able to actively straight leg raise. DS: Diagnosis - Discharge Diagnosis (1) Status post right knee replacement Start date: 12/17/18 Status: Acute (2) Hypothyroidism Status: Acute (3) Hypertension Status: Acute Discharge Plan - Patient Discharge Instructions ACTIVITY: Continue current activity, Ambulate as tolerated DIET: advance to your usual diet Patient Instructions: Knee Replacement, High Blood Pressure, DI for Knee Replacement, DI for Surgical Site Infection, DI for Hypothyroidism - Follow up Plan Follow up with: Jorge Dutta MD [Staff Physician] - 01/02/19 2:45 pm Disposition: Home Health Service Home Medications: Home Medications Medication Instructions Recorded Confirmed Type Aspirin [Aspir 81] 81 mg PO DAILY 06/22/18 12/17/18 History Calcium Crb,Cit/D3/Min34/Shawn 1 each PO DAILY 06/22/18 12/17/18 History [Citracal + Bone Density Tablet] Carvedilol [Carvedilol 25mg Tab] 25 mg PO BID 06/22/18 12/17/18 History Diclofenac Sodium [Diclofenac 75mg 75 mg PO BID 06/22/18 12/17/18 History Tab] Spironolactone [Spironolactone 25 mg PO DAILY 06/22/18 12/17/18 History 25mg Tablet] Levothyroxine Sodium 88 mcg PO DAILY 12/17/18 12/17/18 History [Levothyroxine 88mcg (0.088mg) Tab] Alendronate Sodium [Alendronate 35 mg PO WEEKLY 12/18/18 12/18/18 History 35mg Tablet] Docusate Sodium [Docusate Sodium 100 mg PO BIDP PRN #20 cap 12/20/18 Rx 100mg Cap] Ferrous Sulfate [Ferrous Sulfate 325 mg PO BID #120 tab 12/20/18 Rx 325mg Tablet] Hydrocod/Acet 5/325 mg [[place] 1 - 2 tab PO Q4HP PRN #30 tab 12/20/18 Rx 5/325mg tablet] Rivaroxaban [Xarelto 10mg tablet] 10 mg PO QPMWM #14 tab 12/20/18 Rx Prescriptions/Medication Reconciliation: New Hydrocod/Acet 5/325 mg [[place] 5/325mg tablet] 1 - 2 tab PO Q4HP PRN #30 tab PRN Reason: Moderate To Severe Pain Ferrous Sulfate [Ferrous Sulfate 325mg Tablet] 325 mg PO BID #120 tab Rivaroxaban [Xarelto 10mg tablet] 10 mg PO QPMWM #14 tab Docusate Sodium [Docusate Sodium 100mg Cap] 100 mg PO BIDP PRN #20 cap PRN Reason: Constipation Continued Spironolactone [Spironolactone 25mg Tablet] 25 mg PO DAILY Carvedilol [Carvedilol 25mg Tab] 25 mg PO BID Calcium Crb,Cit/D3/Min34/Shawn [Citracal + Bone Density Tablet] 1 each PO DAILY Alendronate Sodium [Alendronate 35mg Tablet] 35 mg PO WEEKLY Levothyroxine Sodium [Levothyroxine 88mcg (0.088mg) Tab] 88 mcg PO DAILY Held Diclofenac Sodium [Diclofenac 75mg Tab] 75 mg PO BID Aspirin [Aspir 81] 81 mg PO DAILY - Problem Reconciliation Problems Reviewed?: Yes - Additional Information Additional Information: Our recommendations on discharge include physical therapy with weightbearing as tolerated and range of motion exercises of the right knee with emphasis on full extension and regaining flexion gradually. Patient will have home health and physical therapy at home. Note is made that the patient easily extends the knee to 0 degrees and flexes to 120 degrees while she was under anesthesia for the total knee arthroplasty with the wound closed. I have strongly advised her not to place any pillow behind the knee. But she can place a pillow under the ankle thus allowing gravity/weight of the leg help the knee into full extension. Patient was also advised to keep the leg elevated and ice the knee/use Polar pack on a regular basis. At this stage it is permissible to take a shower and allow the incision to get wet with shower water. After padding the area dry, the wound can be left open or new dressings applied as clinically indicated. Patient will follow up with me in the office in approximately 12-14 days for wound check and to cut the suture ends. Recommend 10 mg of Xarelto p.o. daily for 14 days for DVT prophylaxis. Please feel free to call our office at [phone] or via the hospital weight count operator [phone] for any orthopaedic questions or concerns.
== END 2018-12-20 12:45 | disposition home health service (06) | DRG 470 ==
LOC: OR 10:34 → 2ND 10:34 → OBSVTOIN 10:40 → 2ND 15:16
PROVIDERS: ADMIT Orthopaedic Surgery; ATTEND Orthopaedic Surgery
CPT/HCPCS: 36415; 73560; 80048; 80053; 81001; 85007; 85025; 86850; 96374; 97110; 97116; 97161; 97165; 97535; C1713; C1776; J3370

== ENCOUNTER → 2019-01-29 13:04 | Outpatient (CLI) | payer MEDICARE, OTHER, SELFPAY ==
--- NOTE | 2019-01-29 13:10 | XR_ITS ---
PROCEDURE: XR KNEE RT 2V CLINICAL INDICATION: sp RT TKA, dos 12/17/18 Follow-up total knee arthroplasty COMPARISON: XR KNEE RT 4V from 11/20/2018 XR KNEE RT 2V from 12/17/2018 FINDINGS: Status post total knee replacement with good alignment. No evidence of orthopedic complication. There are faint metallic densities in the infra patellar region and in the suprapatellar area IMPRESSION: Good alignment status post total knee arthroplasty with no acute finding Dictated by: Shawn Reece MD 01/29/2019 17:10 Electronically signed by Shawn Reece MD in [place] 01/29/2019 17:10
== END ==
PROVIDERS: PCP Internal Medicine Adolescent Medicine; Visit Provider Orthopaedic Surgery
DX: Z96.651 Presence of right artificial knee joint (principal); M25.561 Pain in right knee
CPT/HCPCS: 73560

== ENCOUNTER → 2019-06-12 10:04 | Outpatient (CLI) | payer MEDICARE, OTHER, SELFPAY ==
--- NOTE | 2019-06-12 10:10 | XR_ITS ---
PROCEDURE: XR KNEE RT 2V CLINICAL INDICATION: sp RT TKA, dos 12/17/2018 Follow-up total knee arthroplasty COMPARISON: XR KNEE RT 4V from 11/20/2018 XR KNEE RT 2V from 12/17/2018 XR KNEE RT 2V from 01/29/2019 FINDINGS: Status post total knee replacement. Good alignment of the prosthesis. No acute finding. Nonspecific tiny hyperdensity is noted in the suprapatellar region and anterior to the distal femur IMPRESSION: Good alignment status post total knee Dictated by: Shawn Reece MD 06/12/2019 10:26 Electronically signed by Shawn Reece MD in [place] 06/12/2019 10:26
== END ==
PROVIDERS: PCP Internal Medicine Adolescent Medicine; Visit Provider Orthopaedic Surgery
DX: Z96.651 Presence of right artificial knee joint (principal); M25.561 Pain in right knee
CPT/HCPCS: 73560

== ENCOUNTER → 2019-12-24 08:31 | Outpatient (CLI) | payer MEDICARE, OTHER, SELFPAY ==
--- NOTE | 2019-12-24 08:36 | XR_ITS ---
PROCEDURE: XR KNEE RT 2V CLINICAL INDICATION: 1 year follow up right knee replacement COMPARISON: CR XR KNEE RT 4V from 11/20/2018 CR XR KNEE RT 2V from 12/17/2018 CR XR KNEE RT 2V from 01/29/2019 CR XR KNEE RT 2V from 06/12/2019 FINDINGS: Status post total knee replacement with good alignment. No fracture or dislocation. No evidence of orthopedic complication. No lytic or blastic change. Other findings:None. IMPRESSION: No acute findings. Status post total knee replacement with good alignment and no acute finding Dictated by: Shawn Reece MD 12/24/2019 19:04 Shawn Reece MD in [facility] 12/24/2019 19:04
== END ==
PROVIDERS: PCP Internal Medicine Adolescent Medicine; Visit Provider Orthopaedic Surgery
DX: Z96.651 Presence of right artificial knee joint (principal); M25.561 Pain in right knee
CPT/HCPCS: 73560

== ENCOUNTER → 2020-07-21 10:36 | Outpatient (CLI) | payer MEDICARE, OTHER, SELFPAY ==
[2020-07-21 14:21] LABS: Alanine Aminotransferase 13 U/L (12-78); Albumin Level 4.4 g/dl (3.5-5.0); Albumin/Globulin Ratio 1.9 (1.1-1.8); Alkaline Phosphatase 65 U/L (38-126); Anion Gap 12.4 mEq/L (5-15); Aspartate Amino Transferase 26 U/L (14-36); Bilirubin,Total 0.4 mg/dl (0.2-1.3); Blood Urea Nitrogen 21 mg/dl (7-17); Calcium 9.2 mg/dl (8.4-10.2); Carbon Dioxide 23 mmol/L (22.0-30.0); Chloride 107 mmol/L (98-107); Chol/HDL Ratio 3.3 (1-3.5); Cholesterol 187 mg/dl (140-200); Estimated Glomerular Filt Rate 44 ml/min (>60); GFR (African American) 53 ML/MIN (>60); Globulin 2.3 g/dL (1.3-3.2); Glucose 92 mg/dl (74-100); HDL Cholesterol 56 mg/dl (40-60); Potassium 4.4 mmoL/L (3.5-5.1); Sodium 138 mmol/L (136-145); Total Protein,Serum 6.7 g/dl (6.3-8.2); Triglycerides 163 mg/dl (30-150); VLDL Cholesterol 33 mg/dL (0-40)
[2020-07-21 14:31] LABS: Direct LDL Cholesterol 49.85 mg/dL (100-129)
[2020-07-21 14:34] LABS: Basophils % 0.9 % (0.1-2.0); Eosinophils # 0.1 K/mm3 (0.0-0.4); Eosinophils % 2.8 % (0.1-12.0); Hematocrit 34.6 % (37.0-47.0); Hemoglobin 10.7 g/dL (12.2-16.2); Lymphocytes # 1.3 K/mm3 (0.7-4.5); Lymphocytes % 27.6 % (10-50); Mean Corpuscular HGB Conc 30.9 g/dL (31.8-35.4); Mean Corpuscular Hemoglobin 23.3 pg (27.0-31.2); Mean Corpuscular Volume 75.5 fl (81-99); Mean Platelet Volume 8.9 fl (7.4-10.4); Monocytes # 0.3 K/mm3 (0.1-1.0); Monocytes % 7.1 % (1.7-9.3); Neutrophils # 2.8 K/mm3 (1.8-7.8); Neutrophils % 61.5 % (37.0-80.0); Platelet Count 178 K/mm3 (142-424); Red Blood Count 4.58 M/mm3 (4.20-5.40); Red Cell Distribution Width 16.2 % (11.5-17.5); White Blood Count 4.6 K/mm3 (4.8-10.8)
[2020-07-21 14:38] LABS: Free T4 (Free Thyroxine) 1.47 ng/dl (0.78-2.19)
[2020-07-21 14:52] LABS: Thyroid Stimulating Hormone 4.53 uIU/mL (0.465-4.68)
[2020-07-23 15:18] LABS: Triiodothyronine (T3) Free 2.1 pg/mL (2.0-4.4)
== END ==
PROVIDERS: Otolaryngology; Visit Provider Internal Medicine Adolescent Medicine
DX: E78.5 Hyperlipidemia, unspecified (principal); E03.9 Hypothyroidism, unspecified; E03.0 Congenital hypothyroidism with diffuse goiter; D69.6 Thrombocytopenia, unspecified
CPT/HCPCS: 36415; 80053; 80061; 84439; 84443; 84481; 85025

== ENCOUNTER → 2020-10-23 17:20 | Outpatient (CLI) | payer MEDICARE, OTHER, SELFPAY | PROVIDERS: Visit Provider Nurse Practitioner Family | DX: R30.0 Dysuria (principal) | CPT/HCPCS: 87086; 87088; 87186 ==

== ENCOUNTER → 2020-12-22 09:07 | Outpatient (CLI) | payer MEDICARE, OTHER, SELFPAY ==
--- NOTE | 2020-12-22 09:13 | XR_ITS ---
PROCEDURE: XR KNEE RT 2V CLINICAL INDICATION: sp RT TKA, sx 12/27/18 COMPARISON: CR XR KNEE RT 2V from 12/17/2018 CR XR KNEE RT 2V from 01/29/2019 CR XR KNEE RT 2V from 06/12/2019 CR XR KNEE RT 2V from 12/24/2019 FINDINGS: No fracture or dislocation. No lytic or blastic change. There is normal mineralization. Status post total knee arthroplasty. Good alignment. No obvious orthopedic complications. Other findings:None. IMPRESSION: No change good alignment status post prior right total knee arthroplasty Dictated by: Shawn Reece MD 12/22/2020 09:33 Shawn Reece MD in [place] 12/22/2020 09:33
== END ==
PROVIDERS: PCP Internal Medicine Adolescent Medicine; Visit Provider Orthopaedic Surgery
DX: Z96.651 Presence of right artificial knee joint (principal); M25.561 Pain in right knee
CPT/HCPCS: 73560

== ENCOUNTER → 2021-03-04 17:44 | Outpatient (CLI) | payer MEDICARE, OTHER, SELFPAY | PROVIDERS: Visit Provider Nurse Practitioner Family | DX: R30.0 Dysuria (principal); B96.20 Unspecified Escherichia coli [E. coli] as the cause of diseases classified elsewhere | CPT/HCPCS: 87086; 87088; 87186 ==

== ENCOUNTER → 2021-05-03 11:15 | Outpatient (POV) | payer MEDICARE, OTHER, SELFPAY ==
[2021-05-03 11:59] VITALS: BP 161/84; PULSE 82; RESP 18; O2SAT 97; BMI 26.1
--- NOTE | 2021-05-03 12:42 | HMH.PMCON ---
Assessment and Plan (1) Osteoporosis Status: Acute Category: Medical Code(s): M81.0 - Age-related osteoporosis without current pathological fracture (2) Degenerative disc disease Status: Chronic Qualifiers: Spinal region: lumbar Qualified Code(s): M51.36 - Other intervertebral disc degeneration, lumbar region Category: Medical (3) Lumbar radiculopathy Status: Chronic Category: Medical Code(s): M54.16 - Radiculopathy, lumbar region (4) Status post right knee replacement Status: Acute Category: Surgical Code(s): Z96.651 - Presence of right artificial knee joint - Assessment and plan all Dx Assessment and Plan for all problems:: Ordering Physician: Geovany Wright MD Date of Service: 05/25/18 Procedure(s): MR lumbar spine wo con Accession Number(s): [id number] cc: Geovany Wright MD; Shawn Reece MD~ MR lumbar spine wo con, MR 3-d myelogram/MRCP HISTORY: Low back pain with right leg pain ITS.REASON: ACUTE RIGHT SIDED BACK PAIN WITH SCIATICA, DDD LUMBAR ORDERING PHYSICIAN: Geovany Wright MD PATIENT AGE: 77 years Comparison: None TECHNIQUE: Standard multiplanar multiecho sequences are performed without contrast. 3-D MIP and myelographic images are also rendered and reviewed FINDINGS: There is moderate lumbar scoliosis convex right measuring 28 degrees. This has a rotary component with counterclockwise rotation of the lumbar vertebral bodies from L1 to L5. Prominent artifact is present in the lower thoracic region. Spinal cord ends at the L1 level. T11-T12: Unremarkable. T12-L1: Unremarkable T12-L1: Unremarkable. L1-L2: Degenerative disc disease with bulging disc. This is the apex of the scoliosis. There is facet and ligamentum flavum hypertrophy with moderate right and moderate to severe left-sided foraminal narrowing with bilateral lateral recess narrowing. L2-L3: Mild concentric bulging disc along with moderate facet and ligamentum flavum hypertrophy with moderate to severe left-sided foraminal narrowing L3-L4: Degenerative disc disease with Concentric bulging disc with severe facet and ligamentum flavum hypertrophy. There is moderate to severe canal stenosis at this level with severe bilateral lateral recess narrowing and moderate bilateral foraminal narrowing. There is minimal anterolisthesis of L3 of 3 mm. L4-L5: 3 mm anterolisthesis of L4 with concentric bulging disc along with moderate to severe facet and ligamentum flavum hypertrophy with moderate canal stenosis. There is moderate right-sided foraminal narrowing L5-S1: Mild degenerative disc disease with bulging disc with minimal broad-based central disc protrusion. There is facet and ligamentum flavum hypertrophy with right-sided disc osteophyte complex with moderate to severe right-sided foraminal narrowing. Incidental note made of right renal cysts. IMPRESSION: Abnormal MRI of the lumbar spine with multilevel degenerative disc disease, moderate lumbar scoliosis convex right with facet and ligamentum flavum hypertrophy with lateral recess and foraminal narrowing and canal stenosis. Please see above for detailed description at each level. There is canal stenosis at L3-L4 and L4-L5. Small right foraminal disc osteophyte complex is present at L5-S1 with moderate to severe right-sided foraminal narrowing. Please see above for detailed description at each level Patient says that her pain is mainly localized on her low back. This has not gotten better or worse in the last 3 to 4 years. Patient is currently not taking any oral pain medications other than Tylenol. Patient has tried injective therapy with us 3 to 4 years ago but it only helped for a day. She has only tried once though. Currently, patient is not having any radicular pain to her bilateral lower extremities. I will refer the patient for physical therapy for evaluation treatment of low back pain. I will also start the patient on some compounding cream. I would like to
== END ==
PROVIDERS: Visit Provider Clinical Nurse Specialist Family Health
DX: M81.0 Age-related osteoporosis without current pathological fracture (principal); M51.16 Intervertebral disc disorders with radiculopathy, lumbar region; Z96.651 Presence of right artificial knee joint
CPT/HCPCS: 99202; G0463

== ENCOUNTER → 2021-05-31 13:45 | Outpatient (POV) | payer MEDICARE, OTHER, SELFPAY ==
[2021-05-31 13:55] VITALS: BP 175/83; PULSE 82; RESP 18; TEMP 36.4; O2SAT 97; BMI 26.1
--- NOTE | 2021-06-05 14:01 | P.CONS_ITS ---
[facility] Pain Management SOAP Note Subjective:: This patient is a very pleasant 80 year old white female who presents today for follow up. 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 She is currently taking OTC tylenol and compounding cream as needed and states that this current pain regimen is adequately managing pain symptoms. She also states that she is continuing to participate in PT. She rates her pain as a 2 out of 10. Objective:: General: Alert and oriented x3, no acute distress, pleasant and cooperative Lungs: Resps E/U, symmetric chest expansion Eyes: PERRL Musculoskeletal: limited flexion and extension of the lumbar spine secondary to pain. Deep tendon reflexes were normal in bilateral lower extremities. Motor exam was grossly intact in the bilateral lower extremities, antalgic gait noted. Neurological: Speech is clear, senior trial attorney equal, no gross sensory deficits Assessment:: DDD of the lumbar spine lumbar radiculopathy osteoporosis s/p R knee replacement Plan:: I discussed with the patient to continue OTC tylenol, compounding cream, and PT. We will follow up with the patient in 3 months for reassessment of her chronic pain symptoms and medication refills. Justice and prior drug screens were reviewed and appropriate. [facility] History Medical History: Reports:: Cancer, Hyperlipidemia, Hypertension Denies:: Diabetes Mellitus Type 1, Diabetes Mellitus Type 2, Internal Pacemaker, MRSA, Seizures *Have you ever received a pneumonia vaccine?: Yes *Have you received a flu vaccine this season?: Yes Other Medical History: Reports: Anemia, Arthritis, Hypothyroidism, Thyroid Disease. Denies: Blood Transfusion Reaction Other Surgeries: Yes: Appendectomy, Colonoscopy, Hysterectomy-Total. No: Pacemaker Amputation: No Fractures: No - *Social History Smoking Status: Never smoker Alcohol Intake: never Substance Use Type: denies use *Occupational Status:: other Housing: house Household Members: spouse, children *Travel in the last 8 weeks: None Family Hx:: Cancer, Heart Attack, Hypertension, Stroke, Thyroid Disorder
== END ==
PROVIDERS: PCP Internal Medicine Adolescent Medicine; Visit Provider Anesthesiology Pain Medicine
DX: M51.16 Intervertebral disc disorders with radiculopathy, lumbar region (principal); M81.0 Age-related osteoporosis without current pathological fracture; Z96.651 Presence of right artificial knee joint
CPT/HCPCS: 99212; G0463

== ENCOUNTER 2021-06-03 08:00 | Outpatient (RCR) | payer MEDICARE, OTHER, SELFPAY ==
--- NOTE | 2021-05-06 10:35 | HMH.PTOPEV ---
PT Outpatient Evaluation Rehab PT Outpatient Evaluation Start: 05/06/21 08:59 Freq: Status: Active Protocol: Document 05/06/21 09:00 PDESEROUX (Rec: 05/06/21 10:34 [email or web address] [id number]) Electronically Signed By Lazaro Castro, PT 05/06/21 09:00 Outpatient Therapy Subjective History Subjective History Pt. is a 80 year old female who presents to [facility] for the initial evaluation this date(05/06/21) w/ c/o chronic and constant lumbar P!, weakness, and gait deficits of insidious onset that has progressively worsened over the last 2 years. However, pt. reports initial onset of LBP! was in the 90's of insidious onset. Pt. reports symptoms have worsened over the last two years and having a S/P RLE TKA. Recent diagnostic imaging(radiograph) of the lumbar spine positive for lumbar DDD and Scoliosis per pt. report. Pt. reports having symptom relief x 4 days after having a steroid injection. Pt. reports symptoms worsening w/ prolonged ambulation, prolonged sitting, and bending over washing dishes/mopping. Pt. reports having some symptom relief w/ OTC Tylenol and laying on her side. Pt. denies having bowel/bladder dysfunction. Pt also denies having BLE radicular symptoms. Pt. denies pacemaker, denies latex allergy, denies medicational allergy, but reports having an allergy to adhesive tape. Pt. RTMD in 1 month. Current medications include Carvedilol, Tylenol, and Spironolactone. PMH includes S/P RLE TKA, Hypertension, and S/P Skin Cancer Excision. Pt. denies Diabetes, cancer(self). Chief Complaint Pain,Stiff,Weakness Symptom Ty
== END 2021-07-05 15:51 | disposition home or self-care (01) ==
LOC: PT.CARL 08:00
PROVIDERS: PCP Internal Medicine Adolescent Medicine; Visit Provider Clinical Nurse Specialist Family Health
DX: M54.50 Low back pain, unspecified (principal); M79.605 Pain in left leg; M79.604 Pain in right leg
CPT/HCPCS: 97110; 97140; 97163

== ENCOUNTER → 2021-08-11 09:09 | Outpatient (CLI) | payer MEDICARE, OTHER, SELFPAY ==
--- NOTE | 2021-08-11 09:23 | XR_ITS ---
FINAL REPORT TECHNIQUE: Bone densitometry calculations of the lumbar spine and right hip were obtained. CLINICAL HISTORY: . post menopausal FINDINGS: DEXA BONE DENSITY AXIAL SKELETON Using L1-4, the bone mineral density of the spine is 1.018 g/cm2, corresponding to T-score of -0.3. These values are likely falsely elevated secondary to hypertrophic changes. Using the right hip, the bone mineral density of the femoral neck is 0.539 g/cm2, corresponding to a T-score of -2.8. NOTE: T-score: Standard deviation compared with peak bone mass of young adult mean. *Following the recommendations of the International Society of Bone Densitometry, classification of hip BMD is based on the lower of two T-scores; total hip or femoral neck. IMPRESSION: Osteoporosis: Lowest T-score is at or below -2.5. This patient's T-score meets the World Health Organization criteria for osteoporosis. Reviewed, Interpreted and Dictated by Kian Pro III, MD Transcribed by Yamila Bernard Authenticated by Kian Pro III, MD on 08/11/2021 11:15:47 AM [facility]
== END ==
PROVIDERS: PCP Internal Medicine Adolescent Medicine; Visit Provider Internal Medicine Adolescent Medicine
DX: M81.0 Age-related osteoporosis without current pathological fracture (principal)
CPT/HCPCS: 77080

== ENCOUNTER → 2021-08-26 09:05 | Outpatient (POV) | payer MEDICARE, OTHER, SELFPAY ==
[2021-08-26 09:18] VITALS: BP 141/73; PULSE 75; RESP 18; TEMP 36.7; O2SAT 96; BMI 28.0
--- NOTE | 2021-08-26 10:02 | P.CONS_ITS ---
[facility] Pain Management SOAP Note Subjective:: Patient is a pleasant 80-year-old female who presents today for follow-up. She is currently being managed for degenerative disc disease of lumbar spine with lumbar radiculopathy symptoms, osteoporosis, and status post right knee replacement. She is currently being managed with [id number] Tylenol and compounding cream as needed. She states that this regimen is working well for her. She does have occasional pain in the morning that she uses the compounding cream for she rates her pain today as 3 out of 10. She has no other complaints today. Review of Systems: General: No recent weight changes, no fever, no sleep disturbances Respiratory: No cough, no shortness of air, no recurring pulmonary infections Cardiovascular/peripheral vascular: No chest pain, no palpitations, no edema, no shortness of breath Gastrointestinal: No new onset incontinence, normal bowel movements reported Genitourinary: No new onset incontinence Musculoskeletal: Low back pain Psychiatric: [Normal mood/affect] Neurological: [Denies weakness in extremities], [denies balance issues] Objective:: Physical Exam: General: Alert and oriented x3, no acute distress, pleasant and cooperative Lungs: Respirations even and unlabored, symmetrical chest expansion Eyes: PERRL Musculoskeletal: Flexion and extension of lumbar [spine] somewhat guarded secondary to pain, [antalgic gait noted] Neurological: Speech clear, no gross sensory deficit Assessment:: Degenerative disc disease of lumbar spine with lumbar radiculopathy symptoms Plan:: Patient is currently being managed with [id number] Tylenol and compounding cream that significantly helps the patient's pain. Patient is to continue with this regimen. She can give us a call if she needs refills on her compounding cream and we can fax that order to her pharmacy. We will follow-up with this patient in 6 months. Patient has been instructed to contact the clinic with any concerns before the next appointment. Dr. Anders has reviewed this note and agrees with this plan of care. This note was dictated using voice recognition software and make contain errors or omissions. [facility] History Medical History: Reports:: Cancer, Hyperlipidemia, Hypertension Denies:: Diabetes Mellitus Type 1, Diabetes Mellitus Type 2, Internal Pacemaker, MRSA, Seizures *Have you ever received a pneumonia vaccine?: Yes *Have you received a flu vaccine this season?: Yes Other Medical History: Reports: Anemia, Arthritis, Hypothyroidism, Thyroid Disease. Denies: Blood Transfusion Reaction Other Surgeries: Yes: Appendectomy, Colonoscopy, Hysterectomy-Total. No: Pacemaker Amputation: No Fractures: No - *Social History Smoking Status: Never smoker Alcohol Intake: never Substance Use Type: denies use *Occupational Status:: retired Housing: house Household Members: spouse, children *Travel in the last 8 weeks: None Family Hx:: Cancer, Heart Attack, Hypertension, Stroke, Thyroid Disorder
== END ==
PROVIDERS: Visit Provider Student in an Organized Health Care Education/Training Program
DX: M51.16 Intervertebral disc disorders with radiculopathy, lumbar region (principal)
CPT/HCPCS: 99212; G0463

== ENCOUNTER 2021-08-26 09:34 | Outpatient (CLI) | payer MEDICARE, OTHER, SELFPAY ==
[2021-08-26 09:52] VITALS: BP 143/72; PULSE 84; TEMP 36.4; O2SAT 99
[2021-08-26 10:00] VITALS: BP 136/75; PULSE 82; O2SAT 99
== END 2021-08-26 10:00 | disposition home or self-care (01) ==
LOC: INF 09:35
PROVIDERS: PCP Internal Medicine Adolescent Medicine; Visit Provider Internal Medicine Adolescent Medicine
DX: M81.0 Age-related osteoporosis without current pathological fracture (principal)
CPT/HCPCS: 96372; 99212; G0463; J0897

== ENCOUNTER → 2022-03-03 08:23 | Outpatient (POV) | payer MEDICARE, OTHER, SELFPAY ==
[2022-03-03 08:36] VITALS: BP 155/83; PULSE 88; RESP 18; O2SAT 95; BMI 27.4
--- NOTE | 2022-03-03 09:02 | EXP.PAIN.SOA ---
[facility] Pain Management SOAP Note Subjective:: Patient is a pleasant 81-year-old female who presents today for follow-up. We are currently treating the patient for degenerative disc disease of lumbar spine with lumbar radiculopathy symptoms, osteoporosis, status post right knee replacement. Today she rates her pain a 3 out of 10. Patient denies any new trauma or injury. Patient denies any new location or type of pain she experiences. Patient describes this as a aching, throbbing sensation that is worse with increased activity. Patient states that she is unable to tolerate prolonged standing or walking due to the pain. Patient states that she has had injections in the past however these only provided very short-term relief. Patient states she has not had imaging for several years. Patient does use [id number] Tylenol to provide pain relief as well as compounding cream. Patient states that she does not need any refills at this time. Her Justice is [phone]. It has been reviewed and appropriate. Review of Systems: General: No recent weight changes, no fever, no sleep disturbances Respiratory: No cough, no shortness of air, no recurring pulmonary infections Cardiovascular/peripheral vascular: No chest pain, no palpitations, no edema, no shortness of breath Gastrointestinal: No new onset incontinence, normal bowel movements reported Genitourinary: No new onset incontinence Musculoskeletal: Low back pain Psychiatric: [Normal mood/affect] Neurological: [Denies weakness in extremities], [denies balance issues] Objective:: Physical Exam: General: Alert and oriented x3, no acute distress, pleasant and cooperative Lungs: Respirations even and unlabored, symmetrical chest expansion Eyes: PERRL Musculoskeletal: Flexion and extension of lumbar [spine] somewhat guarded secondary to pain, [antalgic gait noted] positive shopping cart sign Neurological: Speech clear, no gross sensory deficit FINDINGS: There is moderate lumbar scoliosis convex right measuring 28 degrees. This has a rotary component with counterclockwise rotation of the lumbar vertebral bodies from L1 to L5. Prominent artifact is present in the lower thoracic region. Spinal cord ends at the L1 level. T11-T12: Unremarkable. T12-L1: Unremarkable T12-L1: Unremarkable. L1-L2: Degenerative disc disease with bulging disc. This is the apex of the scoliosis. There is facet and ligamentum flavum hypertrophy with moderate right and moderate to severe left-sided foraminal narrowing with bilateral lateral recess narrowing. L2-L3: Mild concentric bulging disc along with moderate facet and ligamentum flavum hypertrophy with moderate to severe left-sided foraminal narrowing L3-L4: Degenerative disc disease with Concentric bulging disc with severe facet and ligamentum flavum hypertrophy. There is moderate to severe canal stenosis at this level with severe bilateral lateral recess narrowing and moderate bilateral foraminal narrowing. There is minimal anterolisthesis of L3 of 3 mm. L4-L5: 3 mm anterolisthesis of L4 with concentric bulging disc along with moderate to severe facet and ligamentum flavum hypertrophy with moderate canal stenosis. There is moderate right-sided foraminal narrowing L5-S1: Mild degenerative disc disease with bulging disc with minimal broad-based central disc protrusion. There is facet and ligamentum flavum hypertrophy with right-sided disc osteophyte complex with moderate to severe right-sided foraminal narrowing. Incidental note made of right renal cysts. IMPRESSION: Abnormal MRI of the lumbar spine with multilevel degenerative disc disease, moderate lumbar scoliosis convex right with facet and ligamentum flavum hypertrophy with lateral recess and foraminal narrowing and canal stenosis. Please see above for detailed description at each level. There is canal stenosis at L3-L4 and L4-L5. Small right foraminal disc osteophyte complex is present at L5-S1 with moderate to severe right-side
== END ==
PROVIDERS: PCP Internal Medicine Adolescent Medicine; Visit Provider Nurse Practitioner Family
DX: M51.16 Intervertebral disc disorders with radiculopathy, lumbar region (principal); M19.90 Unspecified osteoarthritis, unspecified site; Z96.651 Presence of right artificial knee joint; Z79.899 Other long term (current) drug therapy
CPT/HCPCS: 96372; 99212; G0463; J0897

== ENCOUNTER 2022-03-03 09:08 | Outpatient (CLI) | payer MEDICARE, OTHER, SELFPAY ==
[2022-03-03 09:43] VITALS: BP 150/71; PULSE 68; RESP 18; TEMP 36.4; O2SAT 98
== END 2022-03-03 10:18 | disposition home or self-care (01) ==
PROVIDERS: PCP Internal Medicine Adolescent Medicine; Visit Provider Internal Medicine Adolescent Medicine
DX: M81.0 Age-related osteoporosis without current pathological fracture (principal)
CPT/HCPCS: 96372; 99212; G0463; J0897

== ENCOUNTER → 2022-09-05 08:19 | Outpatient (POV) | payer MEDICARE, OTHER, SELFPAY ==
--- NOTE | 2022-09-05 09:08 | EXP.PAIN.SOA ---
[facility] Pain Management SOAP Note Subjective:: Patient is a pleasant 81-year-old female who presents today for 6-month follow-up. We are currently treating the patient for degenerative disc disease of lumbar spine with lumbar radiculopathy symptoms, status post right knee replacement, spinal stenosis with neurogenic claudication. Today she rates her pain a 0 out of 10 while sitting in an 8 out of 10 while walking. Patient denies any new trauma or injury. Patient denies any change to the location or type of pain she experiences. At our last visit we did discuss that she may be a beneficial candidate of a minimally invasive lumbar decompression procedure. Patient states she did review over the educational documents from our last visit and is still considering this as an option. Patient does describe her pain as a aching, throbbing sensation that is worse with increased activity. She states that she frequently has to take multiple breaks due to her worsening pain symptoms while standing or walking. Patient does state that she has to lean over to do activities such as the dishes or laundry due to her worsening pain. Patient cannot perform activities of daily living such as cooking and cleaning due to her pain. Patient has had injections in the past however they only provided very short-term relief. Patient continues to use [id number]-khbtpur Tylenol and compounding cream. Patient is requesting a new order of her compounding cream at today's visit. Her Justice is [phone]. Its been reviewed and appropriate. Review of Systems: General: No recent weight changes, no fever, no sleep disturbances Respiratory: No cough, no shortness of air, no recurring pulmonary infections Cardiovascular/peripheral vascular: No chest pain, no palpitations, no edema, no shortness of breath Gastrointestinal: No new onset incontinence, normal bowel movements reported Genitourinary: No new onset incontinence Musculoskeletal: Low back pain Psychiatric: [Normal mood/affect] Neurological: [Denies weakness in extremities], [denies balance issues] Objective:: Physical Exam: General: Alert and oriented x3, no acute distress, pleasant and cooperative Lungs: Respirations even and unlabored, symmetrical chest expansion Eyes: PERRL Musculoskeletal: Flexion and extension of lumbar [spine] somewhat guarded secondary to pain, [antalgic gait noted] Neurological: Speech clear, no gross sensory deficit Assessment:: Degenerative disc disease of lumbar spine with lumbar radiculopathy symptoms, spinal stenosis with neurogenic claudication symptoms, status post right knee replacement Plan:: Patient continues to have pain in her low back with limited range of motion of her lumbar spine. Patient's previous imaging did show ligamentum flavum hypertrophy multilevels from L1-S1 resulting in moderate to severe narrowing. I have discussed with the patient that she may benefit from a lumbar epidural steroid injection with epidurogram. Risk and benefits were discussed with the patient and at this time she would like to discuss it with her daughter prior to proceeding forward. Patient is not on any blood thinners. Patient will call to schedule this procedure over the phone if needed. We will schedule her for a L GABRIEL L2-L3 with epidurogram if she contacts our office to proceed forward. I will send in a new order of the compounding cream. We will discuss at later visits whether or not if she is a candidate for the minimally invasive lumbar decompression. Patient has been instructed to contact the clinic with any concerns before the next appointment. Dr. Anders has reviewed this note and agrees with this plan of care. This note was dictated using voice recognition software and make contain errors or omissions. [facility] Disclaimer: The information contained in this section may have been updated after the patient was seen, as this information can be updated by other users. Medical History (Updated 03/03/22 @ 09:
[2022-09-05 09:25] VITALS: BP 144/67; PULSE 82; RESP 18; O2SAT 97; BMI 26.2
== END ==
PROVIDERS: PCP Internal Medicine Adolescent Medicine; Visit Provider Nurse Practitioner Family
DX: M51.16 Intervertebral disc disorders with radiculopathy, lumbar region (principal); M48.062 Spinal stenosis, lumbar region with neurogenic claudication; Z96.651 Presence of right artificial knee joint
CPT/HCPCS: 99212; G0463

== ENCOUNTER 2022-09-05 09:13 | Outpatient (CLI) | payer MEDICARE, OTHER, SELFPAY ==
[2022-09-05 09:27] VITALS: BP 146/73; PULSE 69; RESP 18; O2SAT 100
== END 2022-09-05 09:27 | disposition home or self-care (01) ==
LOC: INF 09:15
PROVIDERS: PCP Internal Medicine Adolescent Medicine; Visit Provider Internal Medicine Adolescent Medicine
DX: M81.0 Age-related osteoporosis without current pathological fracture (principal)
CPT/HCPCS: 96372; 99212; G0463; J0897

== ENCOUNTER → 2022-10-18 09:37 | Outpatient (CLI) | payer MEDICARE, OTHER, SELFPAY ==
[2022-10-18 09:54] LABS: MANUAL DIFFERENTIAL MANUAL DIFFERENTIAL (MANUAL DIFF)
[2022-10-18 10:22] LABS: Basophils % 0.5 % (0.1-2.0); Eosinophils # 0.2 K/mm3 (0.0-0.4); Eosinophils % 3.5 % (0.1-12.0); Hematocrit 32.3 % (37.0-47.0); Hemoglobin 9.8 g/dL (12.2-16.2); Lymphocytes # 1.2 K/mm3 (0.7-4.5); Lymphocytes % 26.9 % (10-50); Mean Corpuscular HGB Conc 30.4 g/dL (31.8-35.4); Mean Corpuscular Hemoglobin 22.1 pg (27.0-31.2); Mean Corpuscular Volume 72.7 fl (81-99); Monocytes # 0.4 K/mm3 (0.1-1.0); Monocytes % 8.6 % (1.7-9.3); Neutrophils # 2.6 K/mm3 (1.8-7.8); Neutrophils % 60.6 % (37.0-80.0); Platelet Count 87 K/mm3 (142-424); Red Blood Count 4.44 M/mm3 (4.20-5.40); Red Cell Distribution Width 17.4 % (11.5-17.5); White Blood Count 4.3 K/mm3 (4.8-10.8)
[2022-10-18 12:21] LABS: Eosinophils % 4 % (0-3); Lymphocytes % 28 % (10-50); Monocytes % 8 % (2-9); Neutrophils % 60 % (42-76); Total Cells Counted 50
[2022-10-18 12:22] LABS: Hypochromasia 2+; Microcytosis 1+
[2022-10-18 12:23] LABS: Anisocytosis 1+
[2022-10-18 12:24] LABS: Platelet Estimate Slight Decrease
== END ==
PROVIDERS: PCP Internal Medicine Adolescent Medicine; Visit Provider Internal Medicine Adolescent Medicine
DX: D69.6 Thrombocytopenia, unspecified (principal)
CPT/HCPCS: 36415; 85007; 85014; 85018; 85048; 85049

== ENCOUNTER → 2022-10-27 14:25 | Outpatient (CLI) | payer MEDICARE, OTHER, SELFPAY ==
[2022-10-27 16:27] LABS: Iron 31 ug/dL (37-170)
[2022-10-27 16:36] LABS: Total Iron Binding Capacity 410 ug/dL (265-497)
[2022-10-27 17:02] LABS: Ferritin 8.05 ng/ml (11.1-264)
[2022-10-27 18:19] LABS: Vitamin B12 959 pg/mL (239-931)
[2022-10-29 14:32] LABS: Peripheral Smear Review Scanned Result
[2022-10-31 16:06] LABS: Albumin 3.7 g/dL (2.9-4.4); Alpha-1-Globulin 0.2 g/dL (0.0-0.4); Alpha-2-Globulin 0.8 g/dL (0.4-1.0); Gamma Globulin 0.9 g/dL (0.4-1.8); Immunoglobulin A, Qn 86 mg/dL (64-422); Immunoglobulin G, Qn 851 mg/dL (586-1602); Immunoglobulin M, Qn 109 mg/dL (26-217); Protein, Total 6.6 g/dL (6.0-8.5)
[2022-11-13 13:38] LABS: Free Kappa Lt Chains 27.7
[2022-11-13 13:39] LABS: Free Lambda Lt Chains 13.7
== END ==
PROVIDERS: PCP Internal Medicine Adolescent Medicine; Visit Provider Internal Medicine Medical Oncology
DX: D50.9 Iron deficiency anemia, unspecified (principal); D61.818 Other pancytopenia
CPT/HCPCS: 36415; 82607; 82728; 82746; 82784; 83540; 83550; 83883; 84155; 84165; 86334

== ENCOUNTER → 2022-11-11 07:42 | Outpatient (CLI) | payer MEDICARE, OTHER, SELFPAY ==
--- NOTE | 2022-11-11 07:51 | US_ITS ---
FINAL REPORT CLINICAL HISTORY: iron deficiency COMPARISON: None FINDINGS: Sonographic images of the abdomen were obtained. There is mild fatty infiltration of the liver present. The gallbladder has an unremarkable appearance without evidence of gallstones. There is no evidence of biliary ductal dilatation. The common hepatic duct measures 3 mm, which is within normal limits. Limited images of the pancreas are unremarkable. The spleen is enlarged with a length of 12.7 cm. The right kidney measures 9.5 centimeters in length. The left kidney measures 8.5 cm in length. There is a 3.7 cm cyst in the lower pole of the right kidney, otherwise the renal echogenicity is normal. There is no evidence of hydronephrosis. The aorta has an unremarkable appearance. Limited images of the inferior vena cava are unremarkable. IMPRESSION: Mild splenomegaly and mild fatty infiltration of the liver. 3.7 cm cyst lower pole right kidney. Reviewed, Interpreted and Dictated by Kian Pro III, MD Transcribed by Ela Patel Authenticated and [facility]
== END ==
PROVIDERS: PCP Internal Medicine Adolescent Medicine; Visit Provider Internal Medicine Medical Oncology
DX: D61.818 Other pancytopenia (principal); D50.9 Iron deficiency anemia, unspecified
CPT/HCPCS: 76700

== ENCOUNTER → 2023-01-02 09:48 | Outpatient (CLI) | payer MEDICARE, OTHER, SELFPAY ==
[2023-01-02 10:40] LABS: Basophils % 0.7 % (0.1-2.0); Eosinophils # 0.2 K/mm3 (0.0-0.4); Eosinophils % 4.1 % (0.1-12.0); Hematocrit 44.3 % (37.0-47.0); Hemoglobin 13.8 g/dL (12.2-16.2); Lymphocytes # 1.5 K/mm3 (0.7-4.5); Lymphocytes % 29.1 % (10-50); Mean Corpuscular HGB Conc 31.1 g/dL (31.8-35.4); Mean Corpuscular Hemoglobin 26.2 pg (27.0-31.2); Mean Corpuscular Volume 84.4 fl (81-99); Mean Platelet Volume 10.5 fl (7.4-10.4); Monocytes # 0.4 K/mm3 (0.1-1.0); Monocytes % 8.3 % (1.7-9.3); Neutrophils # 2.9 K/mm3 (1.8-7.8); Neutrophils % 57.8 % (37.0-80.0); Platelet Count 67 K/mm3 (142-424); Red Blood Count 5.25 M/mm3 (4.20-5.40); Red Cell Distribution Width 21.2 % (11.5-17.5)
[2023-01-02 11:42] LABS: Iron 118 ug/dL (37-170)
[2023-01-02 11:51] LABS: Total Iron Binding Capacity 321 ug/dL (265-497)
[2023-01-02 12:20] LABS: Ferritin 20.5 ng/ml (11.1-264)
== END ==
PROVIDERS: PCP Internal Medicine Adolescent Medicine; Visit Provider Internal Medicine Medical Oncology
DX: D61.818 Other pancytopenia (principal); D69.6 Thrombocytopenia, unspecified
CPT/HCPCS: 36415; 82728; 83540; 83550; 85025

== ENCOUNTER 2023-01-12 10:57 | Outpatient (CLI) | payer MEDICARE, OTHER, SELFPAY ==
[2023-01-12 11:02] VITALS: BMI 27.4
--- NOTE | 2023-01-12 11:06 | PC.NURSE ---
1106-collected labs via venipuncture stick with butterfly needle in left ac; pt d/c to md appointment.
[2023-01-12 11:15] LABS: Basophils % 0.4 % (0.1-2.0); Eosinophils # 0.1 K/mm3 (0.0-0.4); Eosinophils % 1.3 % (0.1-12.0); Hematocrit 45.4 % (37.0-47.0); Hemoglobin 15.2 g/dL (12.2-16.2); Lymphocytes # 1.3 K/mm3 (0.7-4.5); Lymphocytes % 18.8 % (10-50); Mean Corpuscular HGB Conc 33.5 g/dL (31.8-35.4); Mean Corpuscular Hemoglobin 28.7 pg (27.0-31.2); Mean Corpuscular Volume 85.7 fl (81-99); Mean Platelet Volume 9.1 fl (7.4-10.4); Monocytes # 0.7 K/mm3 (0.1-1.0); Monocytes % 10.3 % (1.7-9.3); Neutrophils # 4.7 K/mm3 (1.8-7.8); Neutrophils % 69.3 % (37.0-80.0); Platelet Count 103 K/mm3 (142-424); Red Cell Distribution Width 21.1 % (11.5-17.5); White Blood Count 6.8 K/mm3 (4.8-10.8)
== END 2023-01-12 11:07 | disposition home or self-care (01) ==
LOC: INF 10:58
PROVIDERS: PCP Internal Medicine Adolescent Medicine; Visit Provider Internal Medicine Medical Oncology
DX: D61.818 Other pancytopenia (principal)
CPT/HCPCS: 36415; 85025

== ENCOUNTER 2023-01-20 06:39 | Day surgery (SDC) | payer MEDICARE, OTHER, SELFPAY ==
[2023-01-17 17:23] VITALS: BMI 27.3
[2023-01-20 07:22] VITALS: BP 150/86; PULSE 74; RESP 18; TEMP 36.2; O2SAT 95
--- NOTE | 2023-01-20 07:59 | P.PNANES_ITS ---
[facility] Disclaimer: The information contained in this section may have been updated after the patient was seen, as this information can be updated by other users. Medical History Anemia DDD (degenerative disc disease) HLD (hyperlipidemia) HTN (hypertension) Hypothyroidism Normal colonoscopy Osteoporosis Surgical History H/O total hysterectomy History of appendectomy History of right knee joint replacement Family History Other No significant family history Social History Smoking Status: Never smoker second hand exposure: No alcohol intake: never substance use type: denies use current occupational status: retired Travel in the last 8 weeks: None household members: spouse and children housing: house current occupational exposures/hazards: No caffeine: Yes [facility] Anesthesia Checklist Patient Identification Patient Identification: Arm Band and Verbal (Name & ) Structural Data Admitted From: Home Planned Operative Procedure/s: Colonoscopy Consent for Planned Operative Procedure(s) Verified: Yes NPO Status Verified Time NPO: 00:00 Additional verifications Anesthesia Reactions: No Hx Blood Transfusions: Yes Blood Transfusion Reaction: No Airway Assessment Mallampati Score:: Class II C-Spine Mobility Assessed: Yes TMJ Mobility Assessed: Yes Dentition: Dentures-poor fitting Neurological Assessment Level of Consciousness: Awake Hx Seizures: No Numbness or tingling in extremities: No Anesthesia Plan Anesthesia Risk discussed: Yes Anesthesia Plan: Verified ASA Class: III Anesthesia Type: MAC
--- NOTE | 2023-01-20 08:02 | P.PCN_ITS ---
Procedure: Date: 01/20/23 Patient Date of :: 1940 Procedure Performed:: Total colonoscopy to terminal ileum Indications:: Patient is an 82-year-old female from [place] referred for screening colonoscopy. She had undergone previous colonoscopy with Dr. Kiran in 2016. At that time she had tubular adenoma removed from the cecum, sessile serrated adenoma removed from the transverse colon, tubular adenoma at 45 cm. Recommendations were for repeat colonoscopy 2 to 3 years. She has a history of apparent pancytopenia for which she has been seeing Dr. Perez. She has had some thrombocytopenia. Etiology unclear. She had been started on dexamethasone which showed improvement in her platelet count to 103,000. Performing Provider:: Kian Coles MD Referring Provider:: Geovany Wright MD Sedation:: MAC sedation Procedure:: Patient history was obtained and appropriate physical examination was performed. Patient's medications and allergies were reviewed. Informed consent was obtained after explaining the benefits, alternatives, and risks of the procedure including, but not limited to, bleeding, perforation, missed lesions, and adverse reaction to anesthesia medications. Patient was transported to endoscopy procedure room. Patient was connected to monitoring devices. Throughout the procedure the patient's blood pressure, pulse, and oxygen saturations were monitored continuously. Patient identification and planned procedure were verified by the staff. Patient was positioned in lateral decubitus position. Digital anorectal exam was performed. Variable stiffness Olympus colonoscope was inserted and advanced under direct visualization to the cecum. Adequacy of the colonic preparation was noted. The colonoscope was advanced a short distance into the terminal ileum. The colonoscope was then slowly withdrawn while carefully examining the color, texture, anatomy, and integrity of the mucosoa circumferentially. Within the rectum retroflexion was performed. Colonoscope was then withdrawn. . . Findings:: Relatively unremarkable colonoscopy without adenomatous polyps Recommendations:: No adenomatous polyps. Repeat colonoscopy as indicated Complications:: None immediately apparent Estimated blood obtained (mL): 0 Colonoscopy Component Colonoscopy Component Was a colonoscopy performed during today's procedure?: Yes Recommended follow up colonoscopy of at least 10 years?: Yes
[2023-01-20 08:05] VITALS: O2SAT 95
[2023-01-20 08:36] VITALS: BP 89/54; PULSE 87; RESP 14; TEMP 36.6; O2SAT 94
[2023-01-20 08:46] VITALS: BP 92/54; PULSE 83; RESP 16; O2SAT 95
[2023-01-20 08:56] VITALS: BP 102/65; PULSE 71; RESP 16; O2SAT 96
[2023-01-20 09:06] VITALS: BP 117/82; PULSE 88; RESP 16; TEMP 36.6; O2SAT 98
== END 2023-01-20 09:06 | disposition home or self-care (01) ==
PROVIDERS: PCP Internal Medicine Adolescent Medicine; Visit Provider Surgery
PROC: 0DJD8ZZ Inspection of Lower Intestinal Tract, Via Natural or Artificial Opening Endoscopic (ICD-10-PCS; CPT G0105; principal; 2023-01-20 08:30)
DX: Z12.11 Encounter for screening for malignant neoplasm of colon (principal); Z86.010 Personal history of colon polyps
CPT/HCPCS: G0105; J2405

== ENCOUNTER → 2023-03-09 08:24 | Outpatient (POV) | payer MEDICARE, OTHER, SELFPAY ==
--- NOTE | 2023-03-09 08:37 | A.OFFVIS_ITS ---
[facility] Pain Management SOAP Note Subjective:: Patient is a pleasant 82-year-old female who presents today for 6-month follow- up. We are currently treating the patient for degenerative disc disease of lumbar spine with lumbar radiculopathy symptoms, status post right knee replacement, spinal stenosis with neurogenic claudication. Today she rates her pain a 5 out of 10. Patient denies any new trauma or injury. Patient states she has done well over the last 6 months and continues to use her compounding cream on a daily basis. Patient does state that she needs refills on this. Patient has had injections in the past however they only provided very short- term relief. Her Justice has been reviewed and appropriate. Review of Systems: General: No recent weight changes, no fever, no sleep disturbances Respiratory: No cough, no shortness of air, no recurring pulmonary infections Cardiovascular/peripheral vascular: No chest pain, no palpitations, no edema, no shortness of breath Gastrointestinal: No new onset incontinence, normal bowel movements reported Genitourinary: No new onset incontinence Musculoskeletal: Low back pain Psychiatric: [Normal mood/affect] Neurological: [Denies weakness in extremities], [denies balance issues] Objective:: Physical Exam: General: Alert and oriented x3, no acute distress, pleasant and cooperative Lungs: Respirations even and unlabored, symmetrical chest expansion Eyes: PERRL Musculoskeletal: Flexion and extension of lumbar [spine] somewhat guarded secondary to pain, [antalgic gait noted] Neurological: Speech clear, no gross sensory deficit Assessment:: Degenerative disc disease of lumbar spine with lumbar radiculopathy symptoms, status post right knee replacement, spinal stenosis with neurogenic claudication symptoms Plan:: Patient continues to do well with the compounding cream. I will refill her cream and provide 5 refills. Patient will return to clinic in 6 months for reevaluation of symptoms and plan of care. Patient has been instructed to contact the clinic with any concerns before the next appointment. Dr. Anders has reviewed this note and agrees with this plan of care. This note was dictated using voice recognition software and make contain errors or omissions. [facility] Disclaimer: The information contained in this section may have been updated after the patient was seen, as this information can be updated by other users. Medical History Anemia DDD (degenerative disc disease) HLD (hyperlipidemia) HTN (hypertension) Hypothyroidism Normal colonoscopy Osteoporosis Surgical History H/O total hysterectomy History of appendectomy History of right knee joint replacement Family History Other No significant family history Social History Smoking Status: Never smoker second hand exposure: No alcohol intake: never substance use type: denies use current occupational status: retired Travel in the last 8 weeks: None household members: spouse and children housing: house current occupational exposures/hazards: No caffeine: Yes
[2023-03-09 08:38] VITALS: BP 153/80; PULSE 76; RESP 18; O2SAT 95; BMI 27.3
== END ==
PROVIDERS: PCP Internal Medicine Adolescent Medicine; Visit Provider Nurse Practitioner Family
DX: M51.16 Intervertebral disc disorders with radiculopathy, lumbar region (principal); Z96.651 Presence of right artificial knee joint; M48.062 Spinal stenosis, lumbar region with neurogenic claudication
CPT/HCPCS: 99212; G0463

== ENCOUNTER 2023-03-09 08:51 | Outpatient (CLI) | payer MEDICARE, OTHER, SELFPAY ==
[2023-03-09 09:13] VITALS: BP 141/94; PULSE 74; RESP 18; TEMP 36.8; O2SAT 97
== END 2023-03-09 09:18 | disposition home or self-care (01) ==
LOC: INF 08:52
PROVIDERS: PCP Internal Medicine Adolescent Medicine; Visit Provider Internal Medicine Adolescent Medicine
DX: M81.0 Age-related osteoporosis without current pathological fracture (principal)
CPT/HCPCS: 96372; 99212; G0463; J0897

== ENCOUNTER 2023-04-13 09:33 | Outpatient (CLI) | payer MEDICARE, SELFPAY ==
[2023-04-13 09:39] VITALS: BMI 27.3
[2023-04-13 09:58] LABS: Basophils % 0.8 % (0.1-2.0); Eosinophils # 0.2 K/mm3 (0.0-0.4); Eosinophils % 3.1 % (0.1-12.0); Hemoglobin 15.4 g/dL (12.2-16.2); Lymphocytes # 1.4 K/mm3 (0.7-4.5); Lymphocytes % 25.1 % (10-50); Mean Corpuscular HGB Conc 33.4 g/dL (31.8-35.4); Mean Corpuscular Hemoglobin 32.4 pg (27.0-31.2); Mean Corpuscular Volume 96.9 fl (81-99); Mean Platelet Volume 9.7 fl (7.4-10.4); Monocytes # 0.4 K/mm3 (0.1-1.0); Monocytes % 7.7 % (1.7-9.3); Neutrophils # 3.5 K/mm3 (1.8-7.8); Neutrophils % 63.3 % (37.0-80.0); Platelet Count 123 K/mm3 (142-424); Red Blood Count 4.75 M/mm3 (4.20-5.40); White Blood Count 5.5 K/mm3 (4.8-10.8)
== END 2023-04-13 09:50 | disposition home or self-care (01) ==
LOC: INF 09:35
PROVIDERS: PCP Internal Medicine Adolescent Medicine; Visit Provider Internal Medicine Medical Oncology
DX: D61.818 Other pancytopenia (principal)
CPT/HCPCS: 36415; 85025

== ENCOUNTER 2023-07-31 09:31 | Outpatient (CLI) | payer MEDICARE, SELFPAY ==
[2023-07-31 09:37] VITALS: BMI 28.3
[2023-07-31 10:02] LABS: Basophils # 0.2 K/mm3 (0-0.2); Eosinophils # 0.2 K/mm3 (0.0-0.4); Eosinophils % 3.1 % (0.1-12.0); Hematocrit 45.4 % (37.0-47.0); Lymphocytes # 1.5 K/mm3 (0.7-4.5); Lymphocytes % 26.7 % (10-50); Mean Corpuscular Hemoglobin 32.2 pg (27.0-31.2); Mean Corpuscular Volume 97.4 fl (81-99); Monocytes # 0.5 K/mm3 (0.1-1.0); Monocytes % 9.5 % (1.7-9.3); Neutrophils # 3.2 K/mm3 (1.8-7.8); Neutrophils % 57.6 % (37.0-80.0); Platelet Count 120 K/mm3 (142-424); Red Blood Count 4.65 M/mm3 (4.20-5.40); White Blood Count 5.6 K/mm3 (4.8-10.8)
== END 2023-07-31 09:50 | disposition home or self-care (01) ==
LOC: LAB 09:32 → INF 09:35
PROVIDERS: PCP Internal Medicine Adolescent Medicine; Visit Provider Internal Medicine Medical Oncology
DX: D69.6 Thrombocytopenia, unspecified (principal)
CPT/HCPCS: 36415; 85025

== ENCOUNTER 2023-09-06 08:58 | Outpatient (CLI) | payer MEDICARE, SELFPAY ==
--- NOTE | 2023-09-06 09:01 | XR_ITS ---
FINAL REPORT TECHNIQUE: Bone mineral density was calculated of the lumbar spine and hip. CLINICAL HISTORY: OSTEPOROSIS COMPARISON: 08/11/2021 FINDINGS: Using L1-4, the bone mineral density of the spine is 1.084 g/cm2, corresponding to T-score of 0.3. However this is likely falsely elevated secondary to facet arthropathy and degenerative change. Using the bilateral hips, the bone mineral density of the femoral neck is 0.678 g/cm2, corresponding to a T-score of -1.5. NOTE: T-score: Standard deviation compared with peak bone mass of young adult mean. *Following the recommendations of the International Society of Bone densitometry, classification of hip BMD is based on the lower of two T-scores; total hip or femoral neck. IMPRESSION: Diminished bone mineral density of the bilateral hips consistent with low bone density. Normal bone density of the lumbar spine, however this is likely falsely elevated secondary to degenerative change and facet arthropathy. Reviewed, Interpreted and Dictated by Kian Pro III, MD Transcribed by Ela Patel Authenticated and [facility]
== END 2023-09-06 23:59 | disposition home or self-care (01) ==
LOC: RAD 08:58
PROVIDERS: PCP Internal Medicine Adolescent Medicine; Visit Provider Internal Medicine Adolescent Medicine
DX: M81.0 Age-related osteoporosis without current pathological fracture (principal)
CPT/HCPCS: 77080

== ENCOUNTER 2023-09-11 08:21 | Outpatient (POV) | payer MEDICARE, SELFPAY ==
[2023-09-11 08:32] VITALS: BP 138/75; PULSE 82; RESP 18; TEMP 36.7; O2SAT 98; BMI 28.7
--- NOTE | 2023-09-11 09:11 | A.OFFVIS_ITS ---
[facility] Pain Management SOAP Note Subjective:: Patient is a pleasant 82-year-old female who presents today for 6-month follow- up. Today she rates her pain a 3 out of 10. Patient denies any new trauma or injury. She does state that overall she continues to do well. Patient does states she also continues to use her compounded cream improvement. Her Justice has been reviewed and is appropriate. Review of Systems: General: No recent weight changes, no fever, no sleep disturbances Respiratory: No cough, no shortness of air, no recurring pulmonary infections Cardiovascular/peripheral vascular: No chest pain, no palpitations, no edema, no shortness of breath Gastrointestinal: No new onset incontinence, normal bowel movements reported Genitourinary: No new onset incontinence Musculoskeletal: Low back pain Psychiatric: [Normal mood/affect] Neurological: [Denies weakness in extremities], [denies balance issues] Objective:: Physical Exam: General: Alert and oriented x3, no acute distress, pleasant and cooperative Lungs: Respirations even and unlabored, symmetrical chest expansion Eyes: PERRL Musculoskeletal: Flexion and extension of lumbar [spine] somewhat guarded secondary to pain, [antalgic gait noted] Neurological: Speech clear, no gross sensory deficit Assessment:: Degenerative disc disease of lumbar spine with lumbar radiculopathy symptoms, status post right knee replacement, spinal stenosis with neurogenic claudication symptoms Plan:: I will make sure the patient has refills on her compounded cream. Patient will return to clinic on or before 1 year for reevaluation of symptoms and plan of care. Patient has been instructed to contact the clinic with any concerns before the next appointment. Dr. Anders has reviewed this note and agrees with this plan of care. This note was dictated using voice recognition software and make contain errors or omissions. [facility] Disclaimer: The information contained in this section may have been updated after the patient was seen, as this information can be updated by other users. Medical History Normal colonoscopy Anemia HLD (hyperlipidemia) HTN (hypertension) Hypothyroidism Osteoporosis DDD (degenerative disc disease) Surgical History H/O total hysterectomy History of appendectomy History of right knee joint replacement Family History Other No significant family history Social History Smoking Status: Never smoker second hand exposure: No alcohol intake: never substance use type: denies use current occupational status: other Travel in the last 8 weeks: None household members: spouse and children housing: house current occupational exposures/hazards: No caffeine: Yes
== END 2023-09-11 23:59 | disposition home or self-care (01) ==
LOC: SC.PAIN 08:21
PROVIDERS: PCP Internal Medicine Adolescent Medicine; Visit Provider Nurse Practitioner Family
DX: M51.16 Intervertebral disc disorders with radiculopathy, lumbar region (principal); Z96.651 Presence of right artificial knee joint; M48.062 Spinal stenosis, lumbar region with neurogenic claudication
CPT/HCPCS: 99212; G0463

== ENCOUNTER 2023-09-11 09:23 | Outpatient (CLI) | payer MEDICARE, SELFPAY ==
[2023-09-11 09:36] VITALS: BP 155/81; PULSE 66; RESP 16; TEMP 36.8; O2SAT 96
[2023-09-11] MEDS: DENOSUMAB 60 MG/ML SYRINGE SQ (09:36)
[2023-09-11 09:50] VITALS: BP 146/76; PULSE 65; RESP 16; TEMP 36.8; O2SAT 97
== END 2023-09-11 09:50 | disposition home or self-care (01) ==
LOC: INF 09:24
PROVIDERS: PCP Internal Medicine Adolescent Medicine; Visit Provider Internal Medicine Adolescent Medicine
DX: M51.16 Intervertebral disc disorders with radiculopathy, lumbar region (principal); Z96.651 Presence of right artificial knee joint; M48.062 Spinal stenosis, lumbar region with neurogenic claudication
CPT/HCPCS: 96372; 99212; G0463; J0897

== ENCOUNTER 2024-02-07 08:44 | Outpatient (CLI) | payer MEDICARE, SELFPAY ==
[2024-02-07 08:49] VITALS: BMI 28.1
--- NOTE | 2024-02-07 08:53 | PC.NURSE ---
0853-l.chace leon collected labs via venipuncture stick with butterfly needle; to call pt with results.
[2024-02-07 09:00] LABS: Basophils # 0.1 K/mm3 (0-0.2); Basophils % 1.2 % (0.1-2.0); Eosinophils # 0.2 K/mm3 (0.0-0.4); Eosinophils % 3.8 % (0.1-12.0); Hematocrit 45.5 % (37.0-47.0); Hemoglobin 16.1 g/dL (12.2-16.2); Lymphocytes # 1.3 K/mm3 (0.7-4.5); Lymphocytes % 26.4 % (10-50); Mean Corpuscular HGB Conc 35.3 g/dL (31.8-35.4); Mean Corpuscular Hemoglobin 33.4 pg (27.0-31.2); Mean Corpuscular Volume 94.6 fl (81-99); Mean Platelet Volume 9.5 fl (7.4-10.4); Monocytes # 0.4 K/mm3 (0.1-1.0); Monocytes % 7.1 % (1.7-9.3); Neutrophils % 61.5 % (37.0-80.0); Platelet Count 113 K/mm3 (142-424); Red Blood Count 4.81 M/mm3 (4.20-5.40); Red Cell Distribution Width 13.9 % (11.5-17.5); White Blood Count 4.9 K/mm3 (4.8-10.8)
== END 2024-02-07 08:55 | disposition home or self-care (01) ==
LOC: INF 08:45
PROVIDERS: PCP Internal Medicine Adolescent Medicine; Visit Provider Internal Medicine Medical Oncology
DX: D69.6 Thrombocytopenia, unspecified (principal)
CPT/HCPCS: 36415; 85025

== ENCOUNTER 2024-03-12 08:26 | Outpatient (CLI) | payer MEDICARE, SELFPAY ==
[2024-03-12 08:36] VITALS: BP 144/72; PULSE 75; RESP 16; TEMP 36.8; O2SAT 99
[2024-03-12] MEDS: DENOSUMAB 60 MG/ML SYRINGE SUBCUT (08:36)
== END 2024-03-12 08:52 | disposition home or self-care (01) ==
LOC: INF 08:27
PROVIDERS: PCP Internal Medicine Adolescent Medicine; Visit Provider Internal Medicine Adolescent Medicine
DX: M81.0 Age-related osteoporosis without current pathological fracture (principal)
CPT/HCPCS: 96372; J0897

== ENCOUNTER 2024-08-08 09:39 | Outpatient (CLI) | payer MEDICARE, SELFPAY ==
[2024-08-08 10:00] LABS: Basophils % 0.6 % (0.1-2.0); Eosinophils # 0.2 Kmm3 (0.0-0.4); Hematocrit 43.1 % (37.0-47.0); Hemoglobin 14.5 g/dL (12.2-16.2); Immature Granulocytes # 0.02 10^3uL; Immature Granulocytes % 0.4 %; Lymphocytes # 1.3 K/mm3 (0.7-4.5); Lymphocytes % 26.5 % (10-50); Mean Corpuscular HGB Conc 33.6 g/dL (31.8-35.4); Mean Corpuscular Hemoglobin 32.2 pg (27.0-31.2); Mean Corpuscular Volume 95.6 fl (81-99); Mean Platelet Volume 12.2 fl (7.4-10.4); Monocytes # 0.5 K/mm3 (0.1-1.0); Monocytes % 9.9 % (1.7-9.3); Neutrophils % 59.6 % (37.0-80.0); Nucleated Red Blood Cells # 0 10^3/uL; Nucleated Red Blood Cells % 0 %; Platelet Count 62 K/mm3 (142-424); Red Blood Count 4.51 M/mm3 (4.20-5.40); Red Cell Distribution Width 13.2 % (11.5-17.5); Red Cell Distribution Width-SD 46.8 fL; White Blood Count 5.1 K/mm3 (4.8-10.8)
--- NOTE | 2024-08-08 10:01 | PC.NURSE ---
Addendum entered by Carleen Gann RN 08/08/24 10:06: Correction: Pt has appointment with Dr Hendrickson. Original Note: 0945-Blood drawn from right AC using butterfly needle to check CBC prior to appt with Dr Price.
== END 2024-08-08 09:50 | disposition home or self-care (01) ==
LOC: INF 09:39
PROVIDERS: PCP Internal Medicine Adolescent Medicine; Visit Provider Internal Medicine Medical Oncology
DX: D69.6 Thrombocytopenia, unspecified (principal); D61.818 Other pancytopenia
CPT/HCPCS: 36415; 85025

== ENCOUNTER 2024-09-05 08:17 | Outpatient (CLI) | payer MEDICARE, SELFPAY ==
--- NOTE | 2024-09-05 08:32 | PC.NURSE ---
0825 CBC collected via venipuncture to R AC x1 stick with butterfly needle. Patient tolerated well. Patient has appointment with Dr. Hendrickson this am/to infusion department for labs only.
[2024-09-05 08:37] LABS: Basophils % 0.4 % (0.1-2.0); Eosinophils # 0.2 Kmm3 (0.0-0.4); Eosinophils % 3.7 % (0.1-12.0); Hematocrit 44.6 % (37.0-47.0); Hemoglobin 14.9 g/dL (12.2-16.2); Immature Granulocytes # 0.02 10^3uL; Immature Granulocytes % 0.4 %; Lymphocytes # 1.3 K/mm3 (0.7-4.5); Lymphocytes % 25.7 % (10-50); Mean Corpuscular HGB Conc 33.4 g/dL (31.8-35.4); Mean Corpuscular Hemoglobin 31.8 pg (27.0-31.2); Mean Corpuscular Volume 95.3 fl (81-99); Mean Platelet Volume 11.5 fl (7.4-10.4); Monocytes # 0.5 K/mm3 (0.1-1.0); Monocytes % 10.4 % (1.7-9.3); Neutrophils % 59.4 % (37.0-80.0); Nucleated Red Blood Cells # 0 10^3/uL; Nucleated Red Blood Cells % 0 %; Platelet Count 114 K/mm3 (142-424); Red Blood Count 4.68 M/mm3 (4.20-5.40); Red Cell Distribution Width 13.3 % (11.5-17.5); Red Cell Distribution Width-SD 46.3 fL; White Blood Count 5.1 K/mm3 (4.8-10.8)
== END 2024-09-05 23:59 | disposition home or self-care (01) ==
LOC: INF 08:18
PROVIDERS: PCP Internal Medicine Adolescent Medicine; Visit Provider Internal Medicine Medical Oncology
DX: D69.6 Thrombocytopenia, unspecified (principal)
CPT/HCPCS: 36415; 85025

== ENCOUNTER 2024-09-11 08:30 | Outpatient (POV) | payer MEDICARE, SELFPAY ==
--- OUTSIDE RECORDS SUMMARY | 2024-07-06 17:30 | XMS_ITS ---
Author Organization [facility] D RONNIE Address [address] [facility] [address] [place] [address] Care Team Providers Care It Support Specialist Name Role Phone Geovany Wright Primary Care Provider [phone] Migration, Provider Unavailable Unavailable REAS[facility] VISIT [facility] Conversion Encounter Medications Medication SIG (Take, Route, Frequency, Duration) Notes Start Date End Date Status Carvedilol 25 MG 1 tab(s) orally 2 times a day for 90 days Active Spironolactone 25 MG 1 tab(s) orally daily for 90 days Active Levothyroxine Sodium 100 MCG 1 tab(s) orally once a day for 90 days Active Allergy Relief (Cetirizine) 10 MG 1 tab(s) orally once a day for 90 days Active Prolia 60 MG/ML as directed subcutaneously every 6 months for 30 days no auth required 08/17/2021 Active Zithromax Z-Luis 250 MG 2 tablets on the first day, then 1 tablet daily for 4 days orally once a day for 5 days 06/20/2024 Active B-12 1000 MCG 1 tab(s) orally once a day Active Citracal Petites/Vitamin D 250 MG-200 INTL UNITS 1 TAB(S) ORALLY 2 TIMES A DAY for 30 DAY(S) *Please review and pick correct [facility]. If intended option is not shown, discontinue and re-order from Quick Search* 02/10/2012 Active Ferrous Sulfate Dried ER 160 (50 Fe) MG 1 tab(s) orally once a day Active Folic Acid 1 MG 1 tab(s) orally once a day Active Encounters Encounter Location Date Provider Diagnosis [facility] R[facility] [address] [place] [address] 07/06/2024 Provider Migration Acute bronchitis, unspecified organism J20.9 Assessments Encounter Date Diagnosis (ICD Code) Assessment Notes Treatment Notes Treatment Clinical Notes Section Notes 07/06/2024 Acute bronchitis, unspecified organism (ICD-10 - J20.9) Plan Of Treatment Medication Medication Name Sig Start Date Stop Date Notes Zithromax Z-Luis 250 MG 2 tablets on the first day, then 1 tablet daily for 4 days orally once a day for 5 days 06/20/2024 Next Appt Details Provider Name:Geovany Wright, 10/10/2024 09:00:00 AM, [address] [place] [address], [phone], Progress Notes * Mindy PRICE NDOB:[birth year] (83 yo F)Acc No.[id number]:07/06/2024 Patient: Alfred DIASelizabeth Ramirez Provider: Kirk Caputo :1940 A ge:83 Y S ex:Female Date:07/06/2024 Address:[address] [place], [place] [phone] Pcp:Geovany Wright Subjective: * Chief Complaints: * [...] Electronic signature of Prov ider Migration on 09/11/2024 at 08:33 AM EDT Sign off status: Pending * Provider: Kirk leonard Migration Date: 0 07/06/2024 Generated for Leni olmos/Cheri/Ela on: 0 09/11/2024 08:33 AM EDT
--- OUTSIDE RECORDS SUMMARY | 2024-07-25 05:00 | XMS_ITS ---
Author Organization [facility] D RONNIE Address [address] [place] [address] Care Team Providers Care Slitter Helper Name Role Phone Geovany Wright Primary Care Provider Allergies No Known Allergies REASON FOR VISIT 3 month ck Medications Medication SIG (Take, Route, Frequency, Duration) Notes Start Date End Date Status Citracal Petites/Vitamin D 250 MG-200 INTL UNITS 1 TAB(S) ORALLY 2 TIMES A DAY for 30 DAY(S) *Please review and pick correct strength-formulat ion from [employer] options. If intended option is not shown, discontinue and re-order from Quick Search* 02/10/2012 Active Ferrous Sulfate Dried ER 160 (50 Fe) MG 1 tab(s) orally once a day Active Folic Acid 1 MG 1 tab(s) orally once a day Active Prolia 60 MG/ML as directed subcutaneously every 6 months for 30 days no auth required 08/17/2021 Active B-12 1000 MCG 1 tab(s) orally once a day Active Carvedilol 25 MG 1 tab(s) orally 2 times a day for 90 days Active Spironolactone 25 MG 1 tab(s) orally daily for 90 days Active Levothyroxine Sodium 100 MCG 1 tab(s) orally once a day for 90 days Active Allergy Relief (Cetirizine) 10 MG 1 tab(s) orally once a day for 90 days Active Social History Tobacco Use: Social History Observation Description Date Details (start date - stop date) Never Smoker NA - NA Smoking: Question Answer Notes Are you a: nonsmoker Additional Findings: Tobacco Non-User Current no n-smoker Vital Signs Temperature 97.8 degrees Fahrenheit 07/26/19 25 Blood pressure systolic 124 mm Hg 07/26/19 25 Blood pressure diastolic 80 mm Hg 025 Heart Rate 82 /min 07/25/2024 Height 5 ft 4 in in 07/25/2024 Weight 159 lbs 07/25/2024 BMI 27.29 kg/m2 07/25/2024 Encounters Encounter Location Date Provider Diagnosis [address] [address] 07/25/2024 Geovany Wright Hypertension, essent ial I10 ; Acquired hypothyroidism E03.9 ; Hyperlipemia, idiopathic familial E78.5 and Osteoarthritis of multiple joints, unspecified osteoarthritis type M15.9 Assessments Encounter Date Diagnosis (ICD Code) Assessment Notes Treatment Notes Treatment Clinical Notes Section Notes 07/25/2024 Hypertension, essential (ICD-10 - I10) Blood pressures under excellent control, no changes in plans, has had normal renal function. Labs in 3 months 07/25/2024 Acquired hypothyroidism (ICD-10 - E03.9) Clinically euthyroid, TSH has been stable 07/25/2024 Hyperlipemia, idiopathic familial (ICD-10 - E78.5) LDL under good control, remains on statin 07/25/2024 Osteoarthritis of multiple joints, unspecified osteoarthritis type (ICD-10 - M15.9) Currently doing well, good pain control. Plan Of Treatment Treatment Notes Assessment Notes Hypertension, essential Blood pressures under excellent control, no changes in plans, has had normal renal function. Labs in 3 months Acquired hypothyroidism Clinically euthy roid, TSH has been stable Hyperlipemia, idiopathic familial LDL un margarita good control, remains on statin Osteoarthritis of multiple j oints, unspecified osteoarthritis type Currently doing well, good pain control. Next Appt Details Follow Up: 3 Months, Reason: Provider Name:Geovany Wright, 10/10/2024 09:00:00 AM, [address] [address], [place], [phone], Progress Notes * Mnidy PRICE NDOB:[birth year] (83 yo F)Acc No.[id number]:07/25/2024 Progress Notes Patient: Mindy DIAS N Provider: Camelia Wright MD :1940 A ge:83 Y S ex:Female Date:07/25/2024 Address:[address] [place] [address] [place], [phone] Subjective: * Chief Complaints: * 1 . 3 month ck. * HPI: g en: Mindy presents to follow-up her regular medical problems. Overall feels good, no issues with medications. No recent falls. Excellent functional status. Please see prior wellness exams for her healthcare maintenance issues. * Medical History: H ypothyroid, HTN, PREMATURE BEATS NEC, Tachycardia, unspecified, Depression with anxiety, colonoscopy September 2015 with tubular adenoma, Normal mammogram 06/2018, DEXA scan November 2018 with osteopenia with high fracture risk - repeated 09/24 and improved.. * Surgical History: a ppendectomy , hysterectomy , colonoscopy 08/2015, partial thyroidectomy 07/2015, cataract 10/2017, right knee replacement 12/2018. * Hospitalization/Major Diagno stic Procedure: a vincent surgeries . * Family History: F ather: , diagnosed with Heart Disease. M other: , diagnosed with Hypertension. P aternal Grand Father: . P aternal Grand Mother: . M aternal Grand Father: . M aternal Grand Mother: . P aternal uncle: alive. P aternal aunt: . M aternal uncle: . M aternal aunt: alive. S iblings: alive, HTN, CVA. C hildren: alive. 4 brother(s) , 5 sister(s) - healthy. 2 son(s) , 2 daughter(s) - healthy. . * Social History: S moking A re you a: n onsmoker, A dditional Findings: Tobacco Non-User C urrent non-smoker. R ecreational drug use: no. Exercise: no. Home smoke detector use: yes. Caffeine: yes, 1 cup coffee daily. Living Will: Yes. Alcohol: no. Occupation: retired. * Medications: T aking Folic Acid 1 MG Tablet 1 tab(s) orally once a day , Taking Ferrous Sulfate Dried ER 160 (50 Fe) MG Tablet Extended Release 1 tab(s) orally once a day , Taking Citracal Petites/Vitamin D 250 MG-200 INTL UNITS TABLET 1 TAB(S) ORALLY 2 TIMES A DAY , Notes to Pharmacist: *Please review and pick correct strength-formulation from [employer] options. If intended option is not shown, [...] 1 tab(s) orally 2 times a day , Discontinued Zithromax Z-Luis 250 MG Tablet 2 tablets on the first day, then 1 tablet daily for 4 days orally once a day , Medication List reviewed and reconciled with the patient * Allergies: N .K.D.A. Objective: * Vitals: N urse: dw, Pain: 0, Temp: 97.8, RR: 20, HR: 82, BP: 124/80, Ht: 5 ft 4 in, Wt: 159, BMI:27.29. * Examination: G eneral Examination: General P leasant and Cooperative, NAD on RA,. Oral cavity: M oist membranes. Chest: n ormal shape and expansion. Heart: R egular Rate and Rhythm, no murmur, rubs or gallops. HEENT: p harynx and tonsils normal, TM's normal. Lungs: L CTAB, No wheezes, crackles or rhonchi, Good air movement,. Abdomen: S oft, NTND, BSNA, No organomegaly or peritoneal signs.. Neurologic Exam: n o focal signs,, normal sensation, strength, tone and reflexes,, Alert and oriented x 3. Skin: w ithout acute rashes. Peripheral pulses: n ormal (2+) bilaterally. Back: n ormal,. Extremities: n ormal ROM,, no clubbing, no edema,, no foot lesions,. neck s upple,, no thyromegaly,, no lymphadenopathy,. Psych N ormal Mood/Affect. diabetic foot exam V isual exam of foot performed: Y es. Neck s upple, no lymphadenopathy. General Appearance: N AD, pleasant. Assessment: * Assessment: 1. H ypertension, essential - I10 (Primary) 2 . A cquired hypothyroidism - E03.9 3 . 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 O steoarthritis of multiple joints, unspecified osteoarthritis type - M15.9 Plan: * Treatment: 2. A cquired hypothyroidism Notes: Clinically euthyroid, TSH has been stable 3. H yperlipemia, idiopathic familial Notes: LDL under good control, remains on statin 4. O steoarthritis of multiple joints, unspecified osteoarthritis type Notes: Currently doing well, good pain control. * Follow Up: 3 Months * * Sign off status: Completed true * Provider: Camelia Wright MD Date: 07/25/2024 Generated for Brittnyi nickolas/Cheri/eTransmitting on: 0 09/11/2024 08:33 AM EDT History and Physical Notes * Examination Category Sub-Category Detail Notes Category Not es General Examination HEENT: pharynx and tonsils normal, TM's normal Neck supple, no lymphaden opathy Heart: Regular Rate and Rhy thm, no murmur, rubs or gallops Lungs: LCTAB, No wheezes, c rackles or rhonchi, Good air movement, Abdomen: Soft, NTND, BSNA, No organomegaly or peritoneal signs. Extremities: normal ROM,, no club lillian, no edema,, no foot lesions, General Appearance: NAD, pleasant Skin: without acute rashes Neurologic Exam: no focal signs,, nor mal sensation, strength, tone and reflexes,, Alert and oriented x 3 Oral cavity: Moist membranes Peripheral pulses: normal (2+) bilatera lly Back: normal, Chest: normal shape and exp ansion neck supple,, no thyromeg melanie,, no lymphadenopathy, General Pleasant and Coopera tive, NAD on RA, Psych Normal Mood/Affect diabetic foot exam Visual exam of foot performed :: Yes
--- OUTSIDE RECORDS SUMMARY | 2024-09-11 08:33 | XMS_ITS | Referral Summary ---
Author Organization [employer] [facility] Address [address] [place] [id number] Care Team Providers Care Educational Institution President Name Role Phone Unavailable Primary Care Provider Unavailabl e Social History Tobacco Use Types Packs/Day Years Used Date Smoking Tobacco: Never Assessed Comments Unknown Sex and Gender Information Value Date Recorded Sex Assigned at Female 09/28/2021 12:45 PM CDT Legal Sex Female 12:45 PM CDT Gender Identity Female 09/28/2021 12:45 PM CDT Sexual Orientation Not on file Plan of Treatment Not on file
--- OUTSIDE RECORDS SUMMARY | 2024-09-11 08:33 | XMS_ITS | Clinical Summary ---
Author Organization [employer] [facility] [employer] Address [address] [place] [id number] Care Team Providers Care It Investment/Portfolio Manager Name Role Phone Unavailable Primary Care Provider [...]
--- OUTSIDE RECORDS SUMMARY | 2024-09-11 08:34 | XMS_ITS | Patient Health Record ---
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 Role Phone Geovany Wright Primary Care Provider [phone] Migration, Provider Unavailable Unavailable Allergies No Known Allergies Results Component Value Reference Range Notes LIPID PANEL, STANDARD (7600) Reviewed date:04/29/2024 10:29:08 AM Interpretation: Performing Lab:CB, [facility] [id number] [facility], [facility] HospitalIawdHO[address] Vincent Manrique Notes/Report: NON-FASTING; NON-FASTING; NON-FASTING; NON-FASTING FASTING:YES FASTING: YES CHOLESTEROL, TOTAL 219 <200 mg/dL HDL CHOLESTEROL 56 > OR = 50 mg/dL TRIGLYCERIDES 238 <150 mg/dL If a non-fasting specimen was collected, consider repeat triglyceride testing on a fasting specimen if clinically indicated. Jessie et al. J. of Clin. Lipidol. 2015;9:129-169. LDL-CHOLESTEROL 125 Reference range: <100 Desirable range <100 mg/dL for primary prevention; <70 mg/dL for patients with CHD or diabetic patients with > or = 2 CHD risk factors. LDL-C is now calculated using the Paulo-Greyson calculation, which is a validated novel method providing better accuracy than the Friedewald equation in the estimation of LDL-C. Paulo GARNICA et al. MONIQUE. 2013;310(19): 3537-8686 (http://education.[employer].com/faq/CZJ989) CHOL/HDLC RATIO 3.9 <5.0 (calc) NON HDL CHOLESTEROL 163 <130 mg/dL (calc) For patients with diabetes plus 1 major ASCVD risk factor, treating to a non-HDL-C goal of <100 mg/dL (LDL-C of <70 mg/dL) is considered a therapeutic option. COMPREHENSIVE METABOLIC PANE (27854) Reviewed date:04/29/2024 10:29:08 AM Interpretation: Performing Lab:ARTI [employer] [id number] [employer], [facility] ClinicRysxMI[address] Vincent Manrique Notes/Report: NON-FASTING; NON-FASTING; NON-FASTING; NON-FASTING FASTING:YES FASTING: YES GLUCOSE 91 65-99 mg/dL Fasting reference interval UREA NITROGEN (BUN) 18 7-25 mg/dL CREATININE 1.22 0.60-0.95 mg/dL EGFR 45 > OR = 60 mL/min/1.73m2 BUN/CREATININE RATIO 15 6-22 (calc) SODIUM 141 135-146 mmol/L POTASSIUM 4.3 3.5-5.3 mmol/L CHLORIDE 103 98-110 mmol/L CARBON DIOXIDE 28 20-32 mmol/L CALCIUM 9.4 8.6-10.4 mg/dL PROTEIN, TOTAL 6.6 6.1-8.1 g/dL ALBUMIN 4.4 3.6-5.1 g/dL GLOBULIN 2.2 1.9-3.7 g/dL (calc) ALBUMIN/GLOBULIN RATIO 2.0 1.0-2.5 (calc) BILIRUBIN, TOTAL 0.7 0.2-1.2 mg/dL ALKALINE PHOSPHATASE 56 37-153 U/L AST 17 10-35 U/L ALT 14 6-29 U/L CBC (INCLUDES DIFF/PLT) (639 9) Reviewed date:04/29/2024 10:29:08 AM Interpretation: Performing Lab:ARTI [employer] [employer], [facility] TherapeuticsGfwpPA[address] Vincent Manrique Notes/Report: NON-FASTING; NON-FASTING; NON-FASTING; NON-FASTING FASTING:YES FASTING: YES WHITE BLOOD CELL COUNT 5.5 3.8-10.8 Thousand/ uL RED BLOOD CELL COUNT 4.81 3.80-5.10 Million/uL HEMOGLOBIN 15.6 11.7-15.5 g/dL HEMATOCRIT 46.0 35.0-45.0 % MCV 95.6 80.0-100.0 fL MCH 32.4 27.0-33.0 pg MCHC 33.9 32.0-36.0 g/dL For adults, a slight decrease in the calculated MCHC value (in the range of 30 to 32 g/dL) is most likely not clinically significant; however, it should be interpreted with caution in correlation with other red cell parameters and the patient's clinical condition. RDW 12.9 11.0-15.0 % PLATELET COUNT 125 140-400 Thousand/uL MPV 12.5 7.5-12.5 fL ABSOLUTE NEUTROPHILS [phone] cells/uL ABSOLUTE LYMPHOCYTES 5044 285-9936 cells/uL ABSOLUTE MONOCYTES 495 200-950 cells/uL ABSOLUTE EOSINOPHILS 132 15-500 cells/uL ABSOLUTE BASOPHILS 22 0-200 cells/uL NEUTROPHILS 60.9 LYMPHOCYTES 27.3 MONOCYTES 9.0 EOSINOPHILS 2.4 BASOPHILS 0.4 CBC (INCLUDES DIFF/PLT) (639 9) Reviewed date:10/27/2023 02:41:04 PM Interpretation: Performing Lab:CB, [facility] [address], [facility] HospitalQjfkDO[address] Vincent Manrique Notes/Report: NON-FASTING; NON-FASTING; NON-FASTING; NON-FASTING; NON-FAST FASTING:YES FASTING: YES WHITE BLOOD CELL COUNT 5.2 3.8-10.8 Thousand/ uL RED BLOOD CELL COUNT 4.86 3.80-5.10 Million/uL HEMOGLOBIN 15.3 11.7-15.5 g/dL HEMATOCRIT 47.2 35.0-45.0 % MCV 97.1 80.0-100.0 fL MCH 31.5 27.0-33.0 pg MCHC 32.4 32.0-36.0 g/dL RDW 13.0 11.0-15.0 % PLATELET COUNT 130 140-400 Thousand/uL MPV 11.3 7.5-12.5 fL ABSOLUTE NEUTROPHILS [phone] cells/uL ABSOLUTE LYMPHOCYTES 0241 559-4473 cells/uL ABSOLUTE MONOCYTES 489 200-950 cells/uL ABSOLUTE EOSINOPHILS 161 15-500 cells/uL ABSOLUTE BASOPHILS 42 0-200 cells/uL NEUTROPHILS 62 LYMPHOCYTES 24.7 MONOCYTES 9.4 EOSINOPHILS 3.1 BASOPHILS 0.8 COMMENT(S) Review of peripheral smear confirms automated results. SED RATE BY MODIFIED KELLIE FOSTER (809) Reviewed date:10/27/2023 02:41:04 PM Interpretation: Performing Lab:ARTI [employer] [id number], [facility] ClinicVkmrXF[address] Vincent Manrique Notes/Report: NON-FASTING; NON-FASTING; NON-FASTING; NON-FASTING; NON-FAST FASTING:YES FASTING: YES SED RATE BY MODIFIED CYNDI 6 < OR = 30 mm/h VITAMIN B12/FOLATE, SERUM PA PEPE (9478) Reviewed date:10/27/2023 02:41:04 PM Interpretation: Performing Lab:ARTI [employer] The[address]se[address], [place] NssbJI[address] Vincent Manrique Notes/Report: NON-FASTING; NON-FASTING; NON-FASTING; NON-FASTING; NON-FAST FASTING:YES FASTING: YES VITAMIN B12 2910 558-5646 pg/mL FOLATE, SERUM >24.0 Reference Range Low: <3.4 Borderline: 3.4-5.4 Normal: >5.4 VITAMIN D,25-OH,TOTAL,IA (17 306) Reviewed date:10/27/2023 02:41:04 PM Interpretation: Performing Lab:ARTI [employer] [id number], [facility] ClinicVcvuWY[address] Vincent Manrique Notes/Report: NON-FASTING; NON-FASTING; NON-FASTING; NON-FASTING; NON-FAST FASTING:YES FASTING: YES VITAMIN D,25-OH,TOTAL,IA 45 30-100 ng/mL Vitamin D Status 25-OH Vitamin D: Deficiency: <20 ng/mL Insufficiency: 20 - 29 ng/mL Optimal: > or = 30 ng/mL For 25-OH Vitamin D testing on patients on D2-supplementation and patients for whom quantitation of D2 and D3 fractions is required, the iListAssureD(TM) 25-OH VIT D, (D2,D3), LC/MS/MS is recommended: order code 93306 (patients >2yrs). See Note 1 Note 1 For additional information, please refer to http://education.VSHORE.Eureka/faq/UMW098 (This link is being provided for informational/ educational purposes only.) COMPREHENSIVE METABOLIC PANE L (61031) Reviewed date:10/27/2023 02:41:04 PM Interpretation: Performing Lab:ARTI [employer] [id number] [email or web address] [facility], [facility] ClinicMusdCQ[address] Vincent Manrique Notes/Report: NON-FASTING; NON-FASTING; NON-FASTING; NON-FASTING; NON-FAST FASTING:YES FASTING: YES GLUCOSE 85 65-99 mg/dL Fasting reference interval UREA NITROGEN (BUN) 16 7-25 mg/dL CREATININE 1.18 0.60-0.95 mg/dL EGFR 47 > OR = 60 mL/min/1.73m2 BUN/CREATININE RATIO 14 6-22 (calc) SODIUM 141 135-146 mmol/L POTASSIUM 4.3 3.5-5.3 mmol/L CHLORIDE 104 98-110 mmol/L CARBON DIOXIDE 27 20-32 mmol/L CALCIUM 9.3 8.6-10.4 mg/dL PROTEIN, TOTAL 6.7 6.1-8.1 g/dL ALBUMIN 4.3 3.6-5.1 g/dL GLOBULIN 2.4 1.9-3.7 g/dL (calc) ALBUMIN/GLOBULIN RATIO 1.8 1.0-2.5 (calc) BILIRUBIN, TOTAL 0.5 0.2-1.2 mg/dL ALKALINE PHOSPHATASE 56 37-153 U/L AST 17 10-35 U/L ALT 15 6-29 U/L INFLUENZA A&B Reviewed date:11/30/2023 04:47:03 PM Interpretation: Performing Lab: Notes/Report: INFLUENZA A neg INFLUENZA B neg LIPID PANEL, STANDARD (7600) Reviewed date:10/27/2023 02:41:04 PM Interpretation: Performing Lab:ARTI [employer] Jsqe2685 [email or web address] [facility], [facility] ClinicZdidVH[address] Vincent Manrique Notes/Report: NON-FASTING; NON-FASTING; NON-FASTING; NON-FASTING; NON-FAST FASTING:YES FASTING: YES CHOLESTEROL, TOTAL 217 <200 mg/dL HDL CHOLESTEROL 50 > OR = 50 mg/dL TRIGLYCERIDES 326 <150 mg/dL If a non-fasting specimen was collected, consider repeat triglyceride testing on a fasting specimen if clinically indicated. Jessie et al. J. of Clin. Lipidol. 2015;9:129-169. LDL-CHOLESTEROL 120 Reference range: <100 Desirable range <100 mg/dL for primary prevention; <70 mg/dL for patients with CHD or diabetic patients with > or = 2 CHD risk factors. LDL-C is now calculated using the Fely calculation, which is a validated novel method providing better accuracy than the Friedewald equation in the estimation of LDL-C. Paulo SS et al. MONIQUE. 2013;310(19): 5534-2572 (http://I Gotchu.[employer].Eureka/faq/XNA540) CHOL/HDLC RATIO 4.3 <5.0 (calc) NON HDL CHOLESTEROL 167 <130 mg/dL (calc) For patients with diabetes plus 1 major ASCVD risk factor, treating to a non-HDL-C goal of <100 mg/dL (LDL-C of <70 mg/dL) is considered a therapeutic option. THYROID PANEL WITH TSH (7444 ) Reviewed date:10/27/2023 02:41:04 PM Interpretation: Performing Lab:ARTI [employer], BiologicsIncQeaoGK[address] Vincent Manrique Notes/Report: NON-FASTING; NON-FASTING; NON-FASTING; NON-FASTING; NON-FAST FASTING:YES FASTING: YES T3 UPTAKE 32 22-35 % T4 (THYROXINE), TOTAL 11.4 5.1-11.9 mcg/dL FREE T4 INDEX (T7) 3.6 1.4-3.8 TSH 0.31 0.40-4.50 mIU/L Rapid Covid Antigen Reviewed date:11/30/2023 04:47:03 PM Interpretation:Low Performing Lab: Notes/Report: Low THYROID PANEL WITH TSH (7444 ) Reviewed date:04/29/2024 10:29:08 AM Interpretation: Performing Lab:ARTI, [employer] [employer], BiologicsIncAvmiAL[address] Vincent Manrique Notes/Report: NON-FASTING; NON-FASTING; NON-FASTING; NON-FASTING FASTING:YES FASTING: YES T3 UPTAKE 33 22-35 % T4 (THYROXINE), TOTAL 10.8 5.1-11.9 mcg/dL FREE T4 INDEX (T7) 3.6 1.4-3.8 TSH 2.00 0.40-4.50 mIU/L Medications Medication SIG (Take, Route, Frequency, Duration) Notes Start Date End Date Status Citracal Petites/Vitamin D 250 MG-200 INTL UNITS 1 TAB(S) ORALLY 2 TIMES A DAY for 30 DAY(S) *Please review and pick correct strength-formulat ion from [employer] options. If intended option is not shown, discontinue and re-order from Quick Search* 02/10/2012 Active Ferrous Sulfate Dried ER 160 (50 Fe) MG 1 tab(s) orally once a day Active Folic Acid 1 MG 1 tab(s) orally once a day Active Carvedilol 25 MG 1 tab(s) orally 2 times a day for 90 days Active Levothyroxine Sodium 100 MCG TAKE 1 TABLET EVERY DAY for 90 Active Spironolactone 25 MG 1 tab(s) orally daily for 90 days Active Allergy Relief (Cetirizine) 10 MG 1 tab(s) orally once a day for 90 days Active Prolia 60 MG/ML as directed subcutaneously every 6 months for 30 days no auth required 08/17/2021 Active B-12 1000 MCG 1 tab(s) orally once a day Active Immunizations Vaccine Route Administration Date Status Comme nts SHINGRIX IM Intramuscular 04/21/2022 Administered SHINGRIX IM Intramuscular 10/20/2022 Administered Prevnar PCV-20 (Pneumococcal conjugate 20) IM Intramuscular 01/25/2022 Administered Prevnar PCV-13 (Pneumococcal conjugate 13) IM Intramuscular 05/21/2015 Administered Pneumovax 23 IM Intramuscular 01/30/2018 Administered Influenza (Fluzone)--Medicare only IM Intramuscular 01/23/2015 Administered Influenza (Fluzone)--Medicare only IM Intramuscular 01/26/2016 Administered Influenza (Fluzone)--Medicare only IM Intramuscular 01/17/2017 Administered Fluzone High Dose IM Intramuscular 01/30/2018 Administered Fluzone High Dose IM Intramuscular 01/22/2019 Administered Fluzone High Dose IM Intramuscular 02/04/2020 Administered Fluzone High Dose IM Intramuscular 01/26/2021 Administered Fluzone High Dose IM Intramuscular 01/25/2022 Administered Fluzone High Dose IM Intramuscular 01/26/2023 Administered Fluzone High Dose IM Intramuscular 01/25/2024 Administered Covid Moderna Unknown 05/07/2020 Administered Covid Moderna Unknown 06/04/2020 Administered Adacel (Tdap) IM Intramuscular 05/21/2015 Administered Social History Tobacco Use: Social History Observation Description Date Details (start date - stop date) Never Smoker NA - NA Smoking: Question Answer Notes Are you a: nonsmoker Additional Findings: Tobacco Non-User Current no n-smoker Problems Problem Type SNOMED Code ICD Code Onset Dates Problem Status W/U Status Risk Notes Problem 991410807 Other seasonal allergic rhinitis (J30.2) Active confirmed Problem 830867910 Other allergic rhinitis (J30.89) Active confirmed Problem 90880432 Polymyalgia rheumatica (M35.3) Active confirmed Problem 70003751 Vitamin D defici ency (E55.9) Active confirmed Problem 118844190 Hyperlipemia, idiopathic familial (E78.5) Active confirmed Problem 20815154 Hypertension, essential (I10) Active confirmed Problem 654764234 Tubular adenoma of colon (D12.6) Active confirmed Problem 61334975 Degenerative dis c disease, lumbar (M51.36) Active confirmed Problem 005464285 Thrombocytopenia (D69.6) Active confirmed Problem 121212581 Acquired hypothyroidism (E03.9) Active confirmed Problem 736018986 Osteoarthritis o f multiple joints, unspecified osteoarthritis type (M15.9) Active confirmed Problem 88576113 Hypothyroidism, unspecified type (E03.9) Active confirmed Problem 904930353 Basal cell carcinoma, trunk (C44.519) Active confirmed Problem 71041069 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) Active confirmed Problem 471622651 Microcytic anemi a (D50.9) Active confirmed Problem 72859553 Primary hyperten yevgeniy (I10) Active confirmed Problem 4983747913 Right ear pain (H92.01) Active confirmed Problem 28753179 Osteoporosis wit hout current pathological fracture, unspecified osteoporosis type (M81.0) Active confirmed Problem 393094744 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) Active confirmed Problem 085564257 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 Vital Signs Heart Rate 82 /min 07/25/2024 Temperature 97.8 degrees Fahrenheit 07/25/2024 Blood pressure diastolic 80 mm Hg 07/25/2024 Height 5 ft 4 in in 07/25/2024 Blood pressure systolic 124 mm Hg 07/25/2024 Weight 159 lbs 07/25/2024 BMI 27.29 kg/m2 07/25/2024 Encounters Encounter Location Date Provider Diagnosis [facility] RONNIE [address] [place], [place] [address] 07/06/2024 Provider Migration Acute bronchitis, unspecified organism J20.9 [facility] [address] [address] 10/24/2023 Geovany Wright Acquired hypothyroid ism E03.9 ; Hyperlipemia, idiopathic familial E78.5 ; Thrombocytopenia D69.6 ; Polymyalgia rheumatica M35.3 ; Vitamin D deficiency E55.9 and Routine medical exam Z00.00 [facility] [address] [address] 11/30/2023 Geovany Wright Subacute cough R05.2 and Acute recurrent maxillary sinusitis J01.01 [facility] [address] [address] 01/25/2024 Geovany Wright Acquired hypothyroid ism E03.9 ; Hypothyroidism associated with surgical procedure E89.0 ; Thrombocytopenia D69.6 ; Osteoarthritis of multiple joints, unspecified osteoarthritis type M15.9 ; Hypertension, essential I10 and Immunization(s) administered Z23 [facility] [address] [address] 04/25/2024 Geovany Wright Acquired hypothyroid ism E03.9 ; Thrombocytopenia D69.6 ; Osteoarthritis of multiple joints, unspecified osteoarthritis type M15.9 ; Hypertension, essential I10 ; Postmenopausal osteoporosis M81.0 and Routine medical exam Z00.00 [facility] [address] [address] 06/20/2024 Geovany Wright Acute bronchitis, unspecified organism J20.9 [facility] [address] [address] 07/25/2024 Geovany Wright Hypertension, essent ial I10 ; Acquired hypothyroidism E03.9 ; Hyperlipemia, idiopathic familial E78.5 and Osteoarthritis of multiple joints, unspecified osteoarthritis type M15.9 [facility] [address] [address] 02/20/2024 Geovany Wright Assessments Encounter Date Diagnosis (ICD Code) Assessment Notes Treatment Notes Treatment Clinical Notes Section Notes 10/24/2023 Hyperlipemia, idiopathic familial (ICD-10 - E78.5) 10/24/2023 Acquired hypothyroidism (ICD-10 - E03.9) Patient appears clinically euthyroid. Check TSH and thyroid panel. Please note I will review all labs personally 01/25/2024 Hypothyroidism associated with surgical procedure (ICD-10 - E89.0) 06/20/2024 Acute bronchitis, unspecified organism (ICD-10 - J20.9) Discussed the etiology and expected course of bronchitis. Discussed the rationale for antibiotic and the importance of completing the prescription as prescribed. Continue supportive care with PRN antipyretics, OTC cough/cold meds, nasal saline rinses/Neti pot with distilled water, salt water gargles, cough drops, and humidifier. Encourage PO hydration. Discussed the signs and symptoms of worsening infection/respir atory distress that may indicate need for reassessment in clinic/ED. Keep previously scheduled physical exam or f/u sooner PRN. Patient/family voices understanding and agree to this plan. 07/06/2024 Acute bronchitis, unspecified organism (ICD-10 - J20.9) 07/25/2024 Hypertension, essential (ICD-10 - I10) Blood pressures under excellent control, no changes in plans, has had normal renal function. Labs in 3 months 07/25/2024 Acquired hypothyroidism (ICD-10 - E03.9) Clinically euthyroid, TSH has been stable 01/25/2024 Acquired hypothyroidism (ICD-10 - E03.9) Clinically and biochemically euthyroid. TSH and thyroid panels normal in October. Will recheck in 3 months at 6-month intervals 11/30/2023 Acute recurrent maxillary sinusitis (ICD-10 - J01.01) Start antibiotic for acute sinusitis as stated above. Discussed the etiology & expected course of a URI. Continue supportive care with PRN antipyretics, nasal saline rinses, and humidifier. Encourage PO hydration. Discussed the signs and symptoms of worsening condition and need for reassessment in clinic or ED. 11/30/2023 Subacute cough (ICD-10 - R05.2) 04/25/2024 Thrombocytopenia (ICD-10 - D69.6) Chronic, stable. Follows with hematology at [facility], f/u 08/2024. Plt count stable >100k, repeat today. 04/25/2024 Acquired hypothyroidism (ICD-10 - E03.9) Chronic, stable. Continue synthroid 100 mcg daily. Repeat TSH today. Will personally review all labs and adjust medications as indicated. 04/25/2024 Osteoarthritis of multiple joints, unspecified osteoarthritis type (ICD-10 - M15.9) Chronic, controlled. Very good functional status. Continue tylenol PRN. 07/25/2024 Hyperlipemia, idiopathic familial (ICD-10 - E78.5) LDL under good control, remains on statin 01/25/2024 Thrombocytopenia (ICD-10 - D69.6) Follows with Dr. Wolfe and hematology. She will be due for some labs with him in February. No further bruising, bleeding or stigmata of blood dyscrasia. He stopped aspirin which is certainly reasonable 10/24/2023 Thrombocytopenia (ICD-10 - D69.6) 10/24/2023 Polymyalgia rheumatica (ICD-10 - M35.3) Check sed rate. Currently no evidence of active inflammation. Heme-onc notes reviewed from her previous history of thrombocytopenia . Labs ordered as noted 01/25/2024 Osteoarthritis of multiple joints, unspecified osteoarthritis type (ICD-10 - M15.9) Well with good activity levels. Taking Tylenol as needed. On Prolia for osteoporosis treatment 07/25/2024 Osteoarthritis of multiple joints, unspecified osteoarthritis type (ICD-10 - M15.9) Currently doing well, good pain control. 04/25/2024 Hypertension, essential (ICD-10 - I10) Chronic, controlled. Continue coreg 25 mg BID. 04/25/2024 Postmenopausal osteoporosis (ICD-10 - M81.0) Chronic, stable. Continue prolia, refilled today. Repeat DXA 07/2025. 01/25/2024 Hypertension, essential (ICD-10 - I10) Excellent blood pressure control. No changes in plans 10/24/2023 Vitamin D deficiency (ICD-10 - E55.9) 10/24/2023 Routine medical exam (ICD-10 - Z00.00) Up-to-date with colon screening. Reviewed HRA. Living will in place. Non-smoker. No falls. Cognitive permit not noted with 3/3 word recall 01/25/2024 Immunization(s) administered (ICD-10 - Z23) 04/25/2024 Routine medical exam (ICD-10 - Z00.00) Patient's aged out of colonoscopy or other cancer screening. Up-to-date with vaccines. See notes above about osteoporosis screening. Cognitive impairment not noted, excellent functional status. Plan Of Treatment Pending Test Test Name Order Date Ultrasound : Carotids 08/02/2013 Ultrasound : Kidneys, Bilateral 08/03/19 14 Echocardiogram 08/02/2013 C-Sed Rate (ESR) 04/23/2019 C-CMP 03/21/2016 C-CMP 04/23/2019 C-LIPID PANEL 04/23/2019 C-TSH 04/23/2019 C-CARY 01/12/2016 C-ALDOLASE 01/12/2016 C-THYROID PROFILE 08/04/2015 C-THYROID PROFILE 01/30/2018 C-THYROID PROFILE 07/10/2018 C-THYROID PROFILE 07/23/2019 C-CRP 01/12/2016 VENIPUNCT, ROUTINE* 05/21/2015 Doppler: Duplex Renal Artery 08/02/2013 M-Complete Blood Count Man Dif 3 M-Miscellaneous Test 09/06/2022 M-Comprehensive Metabolic Panel 09/07/19 23 Future Test Test Name Order Date H-TSH 2016 C-THYROID PROFILE 07/31/2017 Next Appt Details Provider Name:Geovany Franklin Sofiedaisy, 10/10/2024 09:00:00 AM, [address] [place] [address], [phone], Insurance Providers Payer Name Payer Address Payer Phone Subscriber Number Group Number Insured Name Patient Relationship to Insured Coverage Start Date Coverage End Date [employer] [address] [address] [place] [address] [id number] Mindy Price Self - patient is the insured Medications Administered Medication Instructions Date of Administration Dosage Notes Cyanocobalamin/B-12 Pt's Own Medication 04/30/2014 Cyanocobalamin/B-12 Pt's Own Medication 05/07/2014 Cyanocobalamin/B-12 Pt's Own Medication 05/13/2014 Cyanocobalamin/B-12 Pt's Own Medication 05/23/2014 Cyanocobalamin/B-12 Pt's Own Medication 05/29/2014 Cyanocobalamin/B-12 Pt's Own Medication 06/09/2014 Cyanocobalamin/B-12 Pt's Own Medication 06/17/2014 Cyanocobalamin/B-12 Pt's Own Medication 06/24/2014 Cyanocobalamin/B-12 Pt's Own Medication 07/01/2014 Cyanocobalamin/B-12 Pt's Own Medication 07/08/2014 Cyanocobalamin/B-12 Pt's Own Medication 07/15/2014 Cyanocobalamin/B-12 Pt's Own Medication 07/29/2014 Cyanocobalamin/B-12 Pt's Own Medication 08/05/2014 Dexamethasone 4mg Injection 11/30/2023 4 mg Dexamethasone 4mg Injection 06/20/2024 4 mg Kenalog 40mg 09/22/2016 40 mg Kenalog 40mg 09/29/2016 1 mL Triamcinolone Acetonide 40mg Injection 09/14/2020 1 mL Kenalog 05/06/2013 1 mL Kenalog 10/06/2014 1 Kenalog 02/04/2016 1 mL Kenalog 03/21/2016 1 mL Kenalog 04/19/2016 1 Kenalog 04/26/2016 1 Kenalog 05/03/2016 1 Kenalog 05/10/2016 1 mL Kenalog 05/19/2016 1 mL Kenalog 05/26/2016 1 mL Medical (General) History Medical History History ICD Code hypothyroid HTN PREMATURE BEATS NEC Tachycardia, unspecified Depression with anxiety colonoscopy September 2015 with tubular adeno ma Normal mammogram 06/2018 DEXA scan November 2018 with o steopenia with high fracture risk - repeated 09/24 and improved. Surgical History Surgery Date(Month/Year) appendectomy hysterectomy colonoscopy 08/2015 partial thyroidectomy 07/2015 cataract 10/2017 right knee replacement 12/2018 Hospitalization History Reason Date(Month/Year) above surgeries
--- NOTE | 2024-09-11 08:51 | EXP.PAIN.SOA ---
[facility] Disclaimer: The information contained in this section may have been updated after the patient was seen, as this information can be updated by other users. Medical History Normal colonoscopy Anemia HLD (hyperlipidemia) HTN (hypertension) Hypothyroidism Osteoporosis DDD (degenerative disc disease) Surgical History H/O total hysterectomy History of appendectomy History of right knee joint replacement Family History Other No significant family history Social History Smoking Status: Never smoker second hand exposure: No alcohol intake: never substance use type: denies use current occupational status: retired Travel in the last 8 weeks?: None household members: spouse and children housing: house current occupational exposures/hazards: No caffeine: Yes Have you lived/traveled outside US in past 30 days?: No Contact w/someone who lives/traveled outside US past 30 days?: No Exposure to someone with infectious disease in past 14 days?: No Do you have a fever (greater than 100.4 F or 38 C)?: No Have you tested positive for COVID-19?: No Exposed to someone with COVID-19 in past 14 days?: No Do you have a sore throat?: No Do you have a cough?: No Do you have any weakness?: No Are you experiencing any nausea/vomitting?: No Do you have any diarrhea?: No Are you experiencing any unusual bleeding?: No Do you have any muscle aches/pain?: No Do you have any abdominal pain?: No Are you experiencing loss of taste or smell?: No PM Subjective & Objective Subjective Subjective:: Patient is a pleasant 83-year-old female who presents today for 1 year follow-up. Today she rates her pain 0 out of 10. She denies any new injuries or trauma from her last appointment. She states she has been doing really well by using her cream and just needs refills. She denies any other issues. Patient is prescribed compounded cream from our office. Her Justice has been reviewed and is appropriate. Review of Systems: General: No recent weight changes, no fever, no sleep disturbances Respiratory: No cough, no shortness of air, no recurring pulmonary infections Cardiovascular/peripheral vascular: No chest pain, no palpitations, no edema, no shortness of breath Gastrointestinal: No new onset incontinence, normal bowel movements reported Genitourinary: No new onset incontinence Musculoskeletal: Low back pain Psychiatric: [Normal mood/affect] Neurological: [Denies weakness in extremities], [denies balance issues] Pain at rest (0-10 scale): 0 Objective Objective:: Physical Exam: General: Alert and oriented x3, no acute distress, pleasant and cooperative Lungs: Respirations even and unlabored, symmetrical chest expansion Eyes: PERRL Musculoskeletal: Flexion and extension of lumbar [spine] within normal limits Neurological: Speech clear, no gross sensory deficit Has patient had previous pain injection?: No Conservative treatment options previously tried: Home exercise plan Length of treatment: Longer than 12 weeks Meds Home Medications and Allergies Home Medications ?Medication ?Instructions ?Recorded ?Confirmed ?Type calcium 300 mg-vit D3 200 1 each PO BID SUPPLEMENT 06/22/18 09/05/24 History hyro-kqrotcze-dralgwtvk 13.5 mg tablet carvedilol 25 mg tablet 25 mg PO BID BLOOD PRESSURE 06/22/18 09/05/24 History spironolactone 25 mg tablet 25 mg PO DAILY BLOOD PRESSURE 06/22/18 09/05/24 History cetirizine 10 mg capsule 10 mg PO DAILY allergies 08/26/21 09/05/24 History cholecalciferol (vitamin D3) 25 1,000 mg PO DAILY Diet supplement 08/26/21 09/05/24 History mcg (1,000 unit) capsule mecobalamin (vitamin B12) 1,000 1,000 mg PO DAILY Diet supplement 08/26/21 09/05/24 History mcg chewable tablet folic acid 1 mg tablet 1 mg PO DAILY 08/01/23 09/05/24 History levothyroxine 100 mcg tablet 100 mcg PO DAILY 08/01/23 09/05/24 History New Prescriptions to Start Prescriptions: Allergies Allergy/AdvReac Type Severity Reaction Status Date / Time adhesive Allergy Mild Rash Verified 09/05/24 09:04 Assessment and Plan *Assessment and plan (1) Lumbar radiculopathy: Status: Chronic Category: Medical Code(s): M54.16 - Radiculopathy, lumbar region (2) Degenerative disc disease: Status: Chronic Qualifiers: Spinal region: lumbar Qualified Code(s): M51.36 - Other intervertebral disc degeneration, lumbar region Category: Medical Plan I will refill the patient's compounded cream. Patient will return to clinic in 1 year for reevaluation of symptoms and plan of care. Patient has been instructed to contact the clinic with any concerns before the next appointment. Dr. Anders has reviewed this note and agrees with this plan of care. This note was dictated using voice recognition software and make contain errors or omissions. All injections are used with Lidocaine, Bupivacaine and dexamethasone. Occasionally urine drug screen is needed to verify patient's compliance with our office pain contract. This is ordered based off specific treatments related to chronic pain with the potential to abuse certain medications.
[2024-09-11 10:05] VITALS: BP 163/88; PULSE 72; RESP 18; O2SAT 95; BMI 28.9
== END 2024-09-11 23:59 | disposition home or self-care (01) ==
LOC: SC.PAIN 08:31
PROVIDERS: PCP Internal Medicine Adolescent Medicine; Visit Provider Nurse Practitioner Family
DX: M51.16 Intervertebral disc disorders with radiculopathy, lumbar region (principal)
CPT/HCPCS: 99212; G0463

== ENCOUNTER 2024-09-11 09:08 | Outpatient (CLI) | payer MEDICARE, SELFPAY ==
--- OUTSIDE RECORDS SUMMARY | 2024-09-11 09:18 | XMS_ITS | Clinical Summary ---
Author Organization [employer] Address [address] [place] [address] Care Team Providers Care Lead Rider Name Role Phone Unavailable Primary Care Provider [...]
--- OUTSIDE RECORDS SUMMARY | 2024-09-11 09:18 | XMS_ITS | Referral Summary ---
Author Organization [employer] Address [address] [place] [address] Care Team Providers Care Chief Ii Dispatcher Name Role Phone Unavailable Primary Care Provider [...]
[2024-09-11 09:23] VITALS: BP 147/85; PULSE 69; RESP 18; TEMP 36.6; O2SAT 93
[2024-09-11] MEDS: DENOSUMAB 60 MG/ML SYRINGE SUBCUT (09:30)
== END 2024-09-11 09:36 | disposition home or self-care (01) ==
LOC: INF 09:10
PROVIDERS: PCP Internal Medicine Adolescent Medicine; Visit Provider Internal Medicine Adolescent Medicine
DX: M81.0 Age-related osteoporosis without current pathological fracture (principal)
CPT/HCPCS: 96372; J0897

== ENCOUNTER 2025-03-06 08:30 | Outpatient (CLI) | payer MEDICARE, SELFPAY ==
--- OUTSIDE RECORDS SUMMARY | 2024-07-06 16:30 | XMS_ITS ---
Author Organization [facility] D RONNIE Address [address] [facility] [address] [place] [address] Care Team Providers Care Cigarette Paper Tester Name Role Phone Geovany Wright Primary Care Provider Migration, Provider Unavailable Unavailable REAS[facility] FOR VISIT [facility] Encounter Medications Medication SIG (Take, [...] review and pick correct strength-formulat ion from [facility] options. If intended option is not shown, discontinue and re-order from Quick Search* 02/10/2012 Active Ferrous Sulfate Dried ER 160 (50 Fe) MG 1 tab(s) orally once a day Active Folic Acid 1 MG 1 tab(s) orally once a day Active Encounters Encounter Location Date Provider Diagnosis [facility] R[facility] [address] [place] [address] 07/06/2024 Provider Migration Acute bronchitis, unspecified organism [...] Details Provider Name:Geovany Wright, 04/15/2025 08:45:00 AM, [address] [place] [address], [phone], Progress Notes * Mindy PRICE NDOB:[birth year] (84 yo F)Acc No.[id number]:07/06/2024 Patient: Mindy DIAS Ahsley Provider: Kirk Caputo :1940 A ge:83 Y S ex:Female Date:07/06/2024 Address:[address] [place], [place] [phone] Pcp:Geovany Wright Subjective: * Chief Complaints: * [...] Electronic signature of Prov ider Migration on 03/06/2025 at 08:33 AM EST Sign off status: Pending * Provider: Kirk leonard Migration Date: 0 07/06/2024 Generated for Leni olmos/Cheri/Ela on: 1 05/07/2024 08:33 AM EST
--- OUTSIDE RECORDS SUMMARY | 2025-01-17 05:00 | XMS_ITS ---
Author Organization [facility] Address [address] [place] [address] Care Team Providers Care Technician Automatic Name Role Phone Geovany Wright Primary Care Provider Poornima Yarbrough Unavailable [phone] Allergies No Known Allergies REASON FOR VISIT cough , runny nose Medications Medication SIG (Take, Route, Frequency, Duration) Notes Start Date End Date Status Levothyroxine Sodium 125 MCG 1 tablet in the morning on an empty stomach Orally Once a day; Duration: 90 days 10/14/2024 Active Folic Acid 1 MG 1 tab(s) orally once a day Active Ferrous Sulfate Dried ER 160 (50 Fe) MG 1 tab(s) orally once a day Active Carvedilol 25 MG 1 tab(s) orally 2 times a day; Duration: 90 days Active Allergy Relief (Cetirizine) 10 MG 1 tab(s) orally once a day; Duration: 90 days Active Citracal Petites/Vitamin D 250 MG-200 INTL UNITS 1 TAB(S) ORALLY 2 TIMES A DAY; Duration: 30 DAY(S) *Please review and pick correct strength-formulat ion from [employer] options. If intended option is not shown, discontinue and re-order from Quick Search* 02/10/2012 Active B-12 1000 MCG 1 tab(s) orally once a day Active Prolia 60 MG/ML as directed subcutaneously every 6 months; Duration: 30 days no auth required 08/17/2021 Active Spironolactone 25 MG 1 tab(s) orally daily; Duration: 90 days Active Vital Signs Temperature 98.5 degrees Fahrenheit 01/18/20 25 Blood pressure systolic 118 mm Hg 01/18/20 25 Blood pressure diastolic 80 mm Hg 025 Heart Rate 80 /min 01/17/2025 Height 5 ft 4 in in 01/17/2025 Weight 162 lbs 01/17/2025 BMI 27.8 kg/m2 01/17/2025 Encounters Encounter Location Date Provider Diagnosis [facility] [address] [address] 01/17/2025 Poornima Yarbrough Viral URI J06.9 Assessments Encounter Date Diagnosis (ICD Code) Assessment Notes Treatment Notes Treatment Clinical Notes Section Notes 01/17/2025 Viral URI (ICD-10 - J06.9) Reassurance. Discussed the etiology & expected course of a viral URI and discussed the rationale for not prescribing antibiotics. Continue supportive care with PRN antipyretics, appropriate OTC cough/cold meds, nasal saline rinses, cough drops, and humidifier. Encourage PO hydration. Discussed the signs and symptoms of worsening condition and need for reassessment in clinic or ED. Plan Of Treatment Treatment Notes Assessment Notes Viral URI Reassurance. Discuss ed the etiology & expected course of a viral URI and discussed the rationale for not prescribing antibiotics. Continue supportive care with PRN antipyretics, appropriate OTC cough/cold meds, nasal saline rinses, cough drops, and humidifier. Encourage PO hydration. Discussed the signs and symptoms of worsening condition and need for reassessment in clinic or ED. Next Appt Details Follow Up: prn, Reason: Provider Name:Geovany Wright, 04/15/2025 08:45:00 AM, [address] [address], [place], [address], Medications Administered Medication Instructions Date of Administration Dosage Notes Dexamethasone 4mg Injection 01/17/2025 4 mg Progress Notes * Mindy PRICE NDOB:[birth year] (84 yo F)Acc No.[id number]:01/17/2025 Progress Notes Patient: Mindy DIAS Provider: Matthew Yarbrough APRN :1940 A ge:84 Y S ex:Female Date:01/17/2025 Address:[address] [place], [place] [address], [id number] Pcp:Geovany Wright Subjective: * Chief Complaints: * 1 . Cough , runny nose. * HPI: E NT/respiratory: 84 year old female presents with c/o sore throat. c/o cough. c/o nasal congestion. c/o rhinorrhea. c/o facial pain. Denies : fever. D enies : ear pain. D enies : postnasal drip. D enies : shortness of breath. D enies : wheeze. D enies : headache. Presents with symptoms x 3-4 days. No fevers. No GI symptoms. Grandson with similar symptoms. * ROS: C ONSTITUTIONAL: no L oss of appetite. n o F ever. D ERMATOLOGY: no R priscila. G ASTROENTEROLOGY: no N ausea. n o V omiting. n o D iarrhea.? * Medical History: H ypothyroid, HTN, PREMATURE BEATS NEC, Tachycardia, unspecified, Depression with anxiety, colonoscopy September 2015 with tubular adenoma, Normal mammogram 06/2018, DEXA scan November 2018 with osteopenia with high fracture risk - repeated 09/24 and improved.. * Medications: T aking Folic Acid 1 [...] Notes to Pharmacist: no auth required, Taking Spironolactone 25 MG Tablet 1 tab(s) orally daily , Taking Carvedilol 25 MG Tablet 1 tab(s) orally 2 times a day , Taking Allergy Relief (Cetirizine) 10 MG Tablet 1 tab(s) orally once a day , Taking Levothyroxine Sodium 125 MCG Tablet 1 tablet in the morning on an empty stomach Orally Once a day , Medication List reviewed and reconciled with the patient * Allergies: N .K.D.A. Objective: * Vitals: N urse: dw, Pain: 0, Temp: 98.5, RR: 20, HR: 80, BP: 118/80, Ht: 5 ft 4 in, Wt: 162, BMI:27.8. * Examination: E NT/Respiratory: General Appearance : w ell nourished and hydrated, alert.? Ears: a uditory canals normal bilaterally, tympanic membranes normal bilaterally. Nose : s tuffy . Sinuses : n on tender bilaterally. Oral Cavity n o erythema or exudate seen on pharynx. Neck : n o cervical lymphadenopathy. Heart : R RR, normal S1 S2, no murmurs. Lungs : c lear to auscultation bilaterally, no crackles or wheezes. Abdomen : s oft, NT/ND, BS present. Skin : c lear without rashes. Assessment: * Assessment: 1. V elaine URI - J06.9 (Primary) Plan: * Treatment: * Therapeutic Injections: Dexamethasone 4mg Injection : 4 mg (Route: Intramuscular) given by LUNA Tovar on left deltoid * Procedure Codes: J 1100 Dexamethasone Sodium Phosphate 4mg Injection, 98297 THERAPEUTIC ADMINISTRATION * Follow Up: p rn * * Sign off status: Completed true * Provider: Matthew Yarbrough APRN Date: Generated for Leni olmos/Cheri/eTtracismitting on: 05/07/2024 08:33 AM EST History and Physical Notes * HPI (History of Present Illness) Category Sub-Category Detail Notes Category Not es ENT/respiratory sore throat Presents wit h symptoms x 3-4 days. No fevers. No GI symptoms. Grandson with similar symptoms facial pain ear pain shortness of breath cough fever postnasal drip headache rhinorrhea nasal congestion wheeze Examination Category Sub-Category Detail Notes Category Not es ENT/Respiratory Oral Cavity no erythema or exudate se en on pharynx Sinuses : non tender bilateral ly Ears: auditory canals norm al bilaterally, tympanic membranes normal bilaterally Neck : no cervical lymphade nopathy Heart : RRR, normal S1 S2, n o murmurs Lungs : clear to auscultatio n bilaterally, no crackles or wheezes Abdomen : soft, NT/ND, BS pres ent General Appearance : well nourished and hydrated, alert Nose : stuffy Skin : clear without rashes
--- OUTSIDE RECORDS SUMMARY | 2025-01-23 04:00 | XMS_ITS ---
Author Organization [facility] D R[facility] Address [address] [facility] [address] [place] [address] Care Team Providers Care Aquatic Facility Manager Name Role Phone Geovany Wright Primary Care [...] 01/23/2025 Encounters Encounter Location Date Provider Diagnosis [facility] [address] [address] 01/23/2025 Geovany Adriana Hyperlipemia, idiopa thic familial [...] Details Provider Name:Geovany Wright, 04/15/2025 08:45:00 AM, [address] [place] [address], [phone], Progress Notes * RANDOLPH Mindy NDOB:[birth year] (84 yo F)Acc No.[id number]:01/23/2025 Progress Notes Patient: Mindy DIAS Provider: Camelia Wright MD :1940 A ge:84 Y S ex:Female Date:01/23/2025 Address:[address] [place], [place] [id number] Subjective: * Chief Complaints: * 1 . [...] *Please review and pick correct strength-formulation from [employer] options. If intended option is not shown, [...] * Procedure Codes: 9 6160 HEALTH RISK [id number], [address] Influenza High Dose Vaccine >65 Years Old, G0008 ADMINISTRATION-FLU VACCINE MEDICARE ONLY * * Sign off status: Completed true * Provider: Camelia Wright MD Date: Generated for Printi ng/Fahomag/eTransmitting on: 05/07/2024 08:33 AM EST History and [...]
--- OUTSIDE RECORDS SUMMARY | 2025-03-06 08:34 | XMS_ITS | Patient Health Record ---
Author Organization [facility] Address [address] [facility] [address] [place] [address] Care Team Providers Care Brake Repair Mechanic Name Role Phone Geovany Wright Primary Care Provider Poornima Yarbrough Unavailable [phone] Migration, Provider Unavailable Unavailable Allergies No Known Allergies Results Component Value Reference Range Notes CBC (INCLUDES DIFF/PLT) (709 9) Reviewed date:04/29/2024 10:29:08 AM Interpretation: Performing Lab:CB, [facility] [id number] [facility] [place] LolaVY[address] Vincent Manrique Notes/Report: NON-FASTING; NON-FASTING; NON-FASTING; NON-FASTING [...] MPV 12.5 7.5-12.5 fL ABSOLUTE NEUTROPHILS 3350 5705-8825 cells/uL ABSOLUTE LYMPHOCYTES 8745 173-8020 cells/uL ABSOLUTE MONOCYTES 495 200-950 cells/uL ABSOLUTE EOSINOPHILS 132 15-500 cells/uL ABSOLUTE BASOPHILS 22 0-200 cells/uL NEUTROPHILS 60.9 LYMPHOCYTES 27.3 MONOCYTES 9.0 EOSINOPHILS 2.4 BASOPHILS 0.4 COMPREHENSIVE METABOLIC PANE L (59558) Reviewed date:04/29/2024 10:29:08 AM Interpretation: Performing Lab:ARTI, [facility], [place] VkdnTV[address] Vincent Manrique Notes/Report: NON-FASTING; NON-FASTING; NON-FASTING; NON-FASTING [...] 17 10-35 U/L ALT 14 6-29 U/L LIPID PANEL, STANDARD (3650) Reviewed date:04/29/2024 10:29:08 AM Interpretation: Performing Lab:ARTI, [place] [facility] SemiLev, [facility]osticsLpexKL[address] Vincent Manrique Notes/Report: NON-FASTING; NON-FASTING; NON-FASTING; NON-FASTING [...] factors. LDL-C is now calculated using the Paulo-Rubi calculation, which is a validated novel method providing better accuracy than the Friedewald equation in the estimation of LDL-C. Paulo SS et al. MONIQUE. 2013;310(19): 4576-5846 (http://CaseStack.Touch Payments/faq/SOB095) CHOL/HDLC RATIO 3.9 <5.0 (calc) NON HDL CHOLESTEROL 163 <130 mg/dL (calc) For patients with diabetes plus 1 major ASCVD risk factor, treating to a non-HDL-C goal of <100 mg/dL (LDL-C of <70 mg/dL) is considered a therapeutic option. THYROID PANEL WITH TSH (7444 ) Reviewed date:04/29/2024 10:29:08 AM Interpretation: Performing Lab:ARTI [facility] [place] [facility] [address], Sonda41MwvcHO[address] Vincent Manrique Notes/Report: NON-FASTING; NON-FASTING; NON-FASTING; NON-FASTING FASTING:YES FASTING: YES T3 UPTAKE 33 22-35 % T4 (THYROXINE), TOTAL 10.8 5.1-11.9 mcg/dL FREE T4 INDEX (T7) 3.6 1.4-3.8 TSH 2.00 0.40-4.50 mIU/L CBC (INCLUDES DIFF/PLT) (639 9) Reviewed date:10/14/2024 11:43:18 AM Interpretation: Performing Lab:ARTI [place] [facility] [facility], S[place]41InehCU[address] Vincent Manrique Notes/Report: NON-FASTING; NON-FASTING; NON-FASTING; NON-FASTING FASTING:YES FASTING: YES NON-FASTING; NON-FASTING; NON-FASTING; NON-FASTING FASTING:YES FASTING: YES WHITE BLOOD CELL COUNT 5.5 3.8-10.8 Thousand/ uL RED BLOOD CELL COUNT 4.80 3.80-5.10 Million/uL HEMOGLOBIN 15.5 11.7-15.5 g/dL HEMATOCRIT 48.2 35.0-45.0 % MCV 100.4 80.0-100.0 fL MCH 32.3 27.0-33.0 pg MCHC 32.2 32.0-36.0 g/dL For adults, a slight decrease in the calculated MCHC value (in the range of 30 to 32 g/dL) is most likely not clinically significant; however, it should be interpreted with caution in correlation with other red cell parameters and the patient's clinical condition. RDW 13.4 11.0-15.0 % PLATELET COUNT 125 140-400 Thousand/uL MPV 11.8 7.5-12.5 fL ABSOLUTE NEUTROPHILS 3350 4602-8461 cells/uL ABSOLUTE LYMPHOCYTES 7431 280-5646 cells/uL ABSOLUTE MONOCYTES 523 200-950 cells/uL ABSOLUTE EOSINOPHILS 198 15-500 cells/uL ABSOLUTE BASOPHILS 28 0-200 cells/uL NEUTROPHILS 60.9 LYMPHOCYTES 25.5 MONOCYTES 9.5 EOSINOPHILS 3.6 BASOPHILS 0.5 PLATELET ESTIMATION ADEQUATE ADEQUATE COMPREHENSIVE METABOLIC PANE L (76241) Reviewed date:10/14/2024 11:43:18 AM Interpretation: Performing Lab:CB, [facility] CenterDlaiSZ[address] Vincent Manrique Notes/Report: NON-FASTING; NON-FASTING; NON-FASTING; NON-FASTING FASTING:YES FASTING: YES GLUCOSE 88 65-99 mg/dL Fasting reference interval UREA NITROGEN (BUN) 16 7-25 mg/dL CREATININE 1.23 0.60-0.95 mg/dL EGFR 44 > OR = 60 mL/min/1.73m2 BUN/CREATININE RATIO 13 6-22 (calc) SODIUM 141 135-146 mmol/L POTASSIUM 4.6 3.5-5.3 mmol/L CHLORIDE 104 98-110 mmol/L CARBON DIOXIDE 28 20-32 mmol/L CALCIUM 9.5 8.6-10.4 mg/dL PROTEIN, TOTAL 6.7 6.1-8.1 g/dL ALBUMIN 4.4 3.6-5.1 g/dL GLOBULIN 2.3 1.9-3.7 g/dL (calc) ALBUMIN/GLOBULIN RATIO 1.9 1.0-2.5 (calc) BILIRUBIN, TOTAL 0.6 0.2-1.2 mg/dL ALKALINE PHOSPHATASE 57 37-153 U/L AST 17 10-35 U/L ALT 13 6-29 U/L LIPID PANEL, STANDARD (7600) Reviewed date:10/14/2024 11:43:18 AM Interpretation: Performing Lab:ARTI [facility] Nrgo6411 0xdataJeff[facility] CenterTgfgCU[address] Vincent Manrique Notes/Report: NON-FASTING; NON-FASTING; NON-FASTING; NON-FASTING FASTING:YES FASTING: YES CHOLESTEROL, TOTAL 232 <200 mg/dL HDL CHOLESTEROL 55 > OR = 50 mg/dL TRIGLYCERIDES 229 <150 mg/dL If a non-fasting specimen was collected, consider repeat triglyceride testing on a fasting specimen if clinically indicated. Jessie et al. J. of Clin. Lipidol. 2015;9:129-169. LDL-CHOLESTEROL 140 calculation, which is a validated novel method providing better accuracy than the Friedewald equation in the estimation of LDL-C. Paulo SS et al. MONIQUE. 2013;310(19): 4773-2102 (http://education.Touch Payments/faq/HOW256) Reference range: <100 Desirable range <100 mg/dL for primary prevention; <70 mg/dL for patients with CHD or diabetic patients with > or = 2 CHD risk factors. LDL-C is now calculated using the [facility] CHOL/HDLC RATIO 4.2 <5.0 (calc) NON HDL CHOLESTEROL 177 <130 mg/dL (calc) For patients with diabetes plus 1 major ASCVD risk factor, treating to a non-HDL-C goal of <100 mg/dL (LDL-C of <70 mg/dL) is considered a therapeutic option. THYROID PANEL WITH TSH (7444 ) Reviewed date:10/14/2024 11:43:18 AM Interpretation: Performing Lab:ARTI [facility] [facility], [facility] CenterYpysYX[address] Vincent Manrique Notes/Report: NON-FASTING; NON-FASTING; NON-FASTING; NON-FASTING FASTING:YES FASTING: YES T3 UPTAKE 29 22-35 % T4 (THYROXINE), TOTAL 8.3 5.1-11.9 mcg/dL FREE T4 INDEX (T7) 2.4 1.4-3.8 TSH 27.71 0.40-4.50 mIU/L Medications Medication SIG (Take, Route, [...] a day; Duration: 90 days 10/14/2024 Active Allergy Relief (Cetirizine) 10 MG 1 tab(s) orally once a day; Duration: 90 days Active B-12 1000 MCG 1 tab(s) orally once a day Active Citracal Petites/Vitamin D 250 MG-200 INTL UNITS 1 TAB(S) ORALLY 2 TIMES A DAY; Duration: 30 DAY(S) *Please review and pick correct strength-formulat ion from Trover options. If intended option is not shown, [...] Fluzone High Dose IM Intramuscular 01/25/2024 Administered Fluzone High Dose IM Intramuscular 01/23/2025 Administered Covid Moderna Unknown 05/07/2020 Administered Covid [...] Problem Status W/U Status Risk Notes Problem Seasonal allergic rhinitis (910983475) Other seasonal allergic rhinitis (J30.2) Active confirmed Problem Allergic rhinitis (45602269) Other allergic rhinitis (J30.89) Active confirmed Problem Polymyalgia rheumatica (41775809) Polymyalgia rheumatica (M35.3) Active confirmed Problem Vitamin D deficiency (19167079) Vitamin D deficiency (E55.9) Active confirmed Problem Hyperlipidemia (58919106) Hyperlipemia, idiopathic familial (E78.5) Active confirmed Problem Essential hypertension (10660778) Hypertension, essential (I10) Active confirmed Problem Tubular adenoma of colon (305119979) Tubular adenoma of colon (D12.6) Active confirmed Problem Degeneration of lumbar intervertebral disc (53704119) Degenerative disc disease, lumbar (M51.36) Active confirmed Problem Thrombocytopenia (859655740) Thrombocytopenia (D69.6) Active confirmed Problem Acquired hypothyroidism (851284291) Acquired hypothyroidism (E03.9) Active confirmed Problem Osteoarthritis of multiple joints (058077345) Osteoarthritis of multiple joints, unspecified osteoarthritis type (M15.9) Active confirmed Problem Hypothyroidism (77717220) Hypothyroidism, unspecified type (E03.9) Active confirmed Problem Basal cell carcinoma of truncal skin (disorder) (677564678) Basal cell carcinoma, trunk (C44.519) Active confirmed Problem 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) Active confirmed Problem Microcytic anemia (402991640) Microcytic anemia (D50.9) Active confirmed Problem Primary hypertension (64933373) Primary hypertension (I10) Active confirmed Problem Otalgia of right ear (finding) (8879582474) Right ear pain (H92.01) Active confirmed Problem Age-related osteoporosis (190869677) Osteoporosis without current pathological fracture, unspecified osteoporosis type (M81.0) Active confirmed Problem Postmenopausal osteoporosis (980066269) 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) Active confirmed Problem 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 [address] [place] [address] 07/06/2024 Provider Migration Acute bronchitis, unspecified organism J20.9 [facility] [address] [address] 04/25/2024 Geovany Adriana Acquired hypothyroid ism E03.9 ; Thrombocytopenia D69.6 ; Osteoarthritis of multiple joints, unspecified osteoarthritis type M15.9 ; Hypertension, essential I10 ; Postmenopausal osteoporosis M81.0 and Routine medical exam Z00.00 [facility] [address] [address] 06/20/2024 Geovany Wright Acute bronchitis, unspecified organism J20.[address] [facility] [address] [address] 07/25/2024 Geovany Wright Hypertension, essent ial I10 ; Acquired hypothyroidism E03.9 ; Hyperlipemia, idiopathic familial E78.5 and Osteoarthritis of multiple joints, unspecified osteoarthritis type M15.9 [facility] [address] [address] 10/10/2024 Geovany Adriana Acquired hypothyroid ism E03.9 ; Hyperlipemia, idiopathic familial E78.5 ; Thrombocytopenia D69.6 ; Hypothyroidism associated with surgical procedure E89.0 and Routine medical exam Z00.00 [facility] [address] [address] 01/17/2025 Poornima McNees Viral URI J06.[address] [facility] [address] [address] 01/23/2025 Geovany Wright Hyperlipemia, idiopa thic familial E78.5 ; Acquired hypothyroidism E03.9 ; Thrombocytopenia D69.6 ; Hypothyroidism associated with surgical procedure E89.0 ; Hypertension, essential I10 ; Routine medical exam Z00.00 and Encounter for immunization Z23 [facility] [address] [address] 10/14/[address] [facility] [address] [address] 01/23/2025 Geovany Wright Assessments Encounter Date Diagnosis (ICD Code) Assessment Notes Treatment Notes Treatment Clinical Notes Section Notes 04/25/2024 Thrombocytopenia (ICD-10 - D69.6) Chronic, stable. Follows with hematology at [facility], f/u 08/2024. Plt count stable >100k, repeat today. 04/25/2024 Acquired hypothyroidism (ICD-10 - E03.9) Chronic, stable. Continue synthroid 100 mcg daily. Repeat TSH today. Will personally review all labs and adjust medications as indicated. 06/20/2024 Acute bronchitis, unspecified organism (ICD-10 - [...] E03.9) Clinically euthyroid, TSH has been stable 10/10/2024 Hyperlipemia, idiopathic familial (ICD-10 - E78.5) 10/10/2024 Acquired hypothyroidism (ICD-10 - E03.9) Clinically euthyroid, has been on a stable dose of levothyroxine replacement therapy. No changes in plan at this point. I will review labs personally 01/17/2025 Viral URI (ICD-10 - J06.9) Reassurance. Discussed the etiology & expected course of a viral URI and discussed the rationale for not prescribing antibiotics. Continue supportive care with PRN antipyretics, appropriate OTC cough/cold meds, nasal saline rinses, cough drops, and humidifier. Encourage PO hydration. Discussed the signs and symptoms of worsening condition and need for reassessment in clinic or ED. 01/23/2025 Hyperlipemia, 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 No change in plans 01/23/2025 Acquired hypothyroidism (ICD-10 - E03.9) Clinically euthyroid, has been on a stable dose of levothyroxine replacement therapy. No changes in plan at this point. I will review labs personally 01/23/2025 Thrombocytopenia (ICD-10 - D69.6) History of thrombocytopenia , hematology notes reviewed. Will continue to monitor. 10/10/2024 Thrombocytopenia (ICD-10 - D69.6) History of thrombocytopenia , hematology notes reviewed. Will continue to monitor. 07/25/2024 Hyperlipemia, idiopathic familial (ICD-10 - E78.5) LDL under good control, remains on statin 04/25/2024 Osteoarthritis of multiple joints, unspecified osteoarthritis type (ICD-10 - M15.9) Chronic, controlled. Very good functional status. Continue tylenol PRN. 10/10/2024 Hypothyroidism associated with surgical procedure (ICD-10 - E89.0) 07/25/2024 Osteoarthritis of multiple joints, unspecified osteoarthritis type (ICD-10 - M15.9) Currently doing well, good pain control. 01/23/2025 Hypothyroidism associated with surgical procedure (ICD-10 - E89.0) Reviewed TSH from previous labs. Normal, no change in plan 04/25/2024 Hypertension, essential (ICD-10 - I10) Chronic, controlled. Continue coreg 25 mg BID. 01/23/2025 Hypertension, essential (ICD-10 - I10) Good blood pressure control, no change in plans 10/10/2024 Routine medical exam (ICD-10 - Z00.00) No recent falls. Aged out of cancer screening. Up-to-date with vaccinations. Daughter is healthcare surrogate. Depression screening negative. 33 word recall. Lifelong non-smoker 04/25/2024 Postmenopausal osteoporosis (ICD-10 - M81.0) Chronic, stable. Continue prolia, refilled today. Repeat DXA 07/2025. 04/25/2024 Routine medical exam (ICD-10 - Z00.00) Patient's aged out of colonoscopy or other cancer screening. Up-to-date with vaccines. See notes above about osteoporosis screening. Cognitive impairment not noted, excellent functional status. 01/23/2025 Routine medical exam (ICD-10 - Z00.00) In regards to [employer] practitioner assessment form reviewed patient's Medicare wellness data No recent falls. Aged out of cancer screening. Up-to-date with vaccinations. Daughter is healthcare surrogate. Depression screening negative. 06/03 word recall. Lifelong non-smoker 01/23/2025 Encounter for immunization (ICD-10 - Z23) Plan Of Treatment Pending Test Test Name Order Date Ultrasound : Carotids 08/02/2013 Ultrasound : Kidneys, Bilateral 08/03/19 14 Echocardiogram 08/02/2013 C-Sed Rate (ESR) 04/23/2019 C-CMP 04/23/2019 C-CMP 03/21/2016 C-LIPID PANEL 04/23/2019 C-TSH 04/23/2019 C-CARY 01/12/2016 C-ALDOLASE 01/12/2016 C-THYROID PROFILE 07/23/2019 C-THYROID PROFILE 08/04/2015 C-THYROID PROFILE 01/30/2018 C-THYROID PROFILE 07/10/2018 C-CRP 01/12/2016 VENIPUNCT, ROUTINE* 05/21/2015 Doppler: Duplex Renal Artery 08/02/2013 M-Complete Blood Count Man Dif 3 M-Miscellaneous Test 09/06/2022 M-Comprehensive Metabolic Panel 09/07/19 23 Future Test Test Name Order Date H-TSH 2016 C-THYROID PROFILE 07/31/2017 Next Appt Details Provider Name:Geovany Wright, 04/15/2025 08:45:00 AM, [address] [place] [address], [place], [address], Insurance Providers Payer Name Payer Address Payer Phone Subscriber Number Group Number Insured Name Patient Relationship to Insured Coverage Start Date Coverage End Date [employer] [address] [address] [place] [address] [id number] Mindy Price Self - patient is the [...] mg Dexamethasone 4mg Injection 06/20/2024 4 mg Dexamethasone 4mg Injection 01/17/2025 4 mg Kenalog 40mg 09/22/2016 40 mg [...]
[2025-03-06 08:49] LABS: Hematocrit 42.8 % (37.0-47.0); Hemoglobin 14.6 g/dL (12.2-16.2); Immature Granulocytes % 0.2 %; Mean Corpuscular HGB Conc 34.1 g/dL (31.8-35.4); Mean Corpuscular Hemoglobin 32.4 pg (27.0-31.2); Mean Corpuscular Volume 94.9 fl (81-99); Nucleated Red Blood Cells % 0 %; Platelet Count 119 K/mm3 (142-424); Red Blood Count 4.51 M/mm3 (4.20-5.40); Red Cell Distribution Width-SD 46.6 fL; White Blood Count 4.9 K/mm3 (4.8-10.8)
--- NOTE | 2025-03-06 09:07 | PC.NURSE ---
0830-Blood drawn from right AC for CBC, per Dr Hendrickson. Used butterfly needle.
[2025-03-06 11:42] VITALS: BMI 29.0
== END 2025-03-06 23:59 | disposition home or self-care (01) ==
LOC: INF 08:30
PROVIDERS: PCP Internal Medicine Adolescent Medicine; Visit Provider Internal Medicine Medical Oncology
DX: D69.6 Thrombocytopenia, unspecified (principal)
CPT/HCPCS: 36415; 85025

== ENCOUNTER 2025-03-19 08:07 | Outpatient (CLI) | payer MEDICARE, SELFPAY ==
--- OUTSIDE RECORDS SUMMARY | 2024-07-06 16:30 | XMS_ITS ---
Author Organization [facility] D RONNIE Address [address] [facility] [address] [place] [address] Care Team Providers Care Tank Systems Maintainer Name Role Phone Geovany Wright Primary Care Provider Migration, Provider Unavailable Unavailable REASON FOR VISIT [facility] Conversion Encounter Medications Medication SIG (Take, Route, Frequency, Duration) Notes Start Date End Date Status Carvedilol 25 MG 1 tab(s) orally 2 times a day; Duration: 90 days Active Spironolactone 25 MG 1 tab(s) orally daily; Duration: 90 days Active Levothyroxine Sodium 100 MCG 1 tab(s) orally once a day; Duration: 90 days Active Allergy Relief (Cetirizine) 10 MG 1 tab(s) orally once a day; Duration: 90 days Active Prolia 60 MG/ML as directed subcutaneously every 6 months; Duration: 30 days no auth required 08/17/2021 Active Zithromax Z-Luis 250 MG 2 tablets on the first day, then 1 tablet daily for 4 days orally once a day; Duration: 5 days 06/20/2024 Active B-12 1000 MCG 1 tab(s) orally once a day Active Citracal Petites/Vitamin D 250 MG-200 INTL UNITS 1 TAB(S) ORALLY 2 TIMES A DAY; Duration: 30 DAY(S) *Please review and pick correct strength-formulat ion from [facility] options. If intended option is not shown, discontinue and re-order from Quick Search* 02/10/2012 Active Ferrous Sulfate Dried ER 160 (50 Fe) MG 1 tab(s) orally once a day Active Folic Acid 1 MG 1 tab(s) orally once a day Active Encounters Encounter Location Date Provider Diagnosis [facility] R[facility] [address] [place] [address] 07/06/2024 Provider Migration Acute bronchitis, unspecified organism J20.9 Assessments Encounter Date Diagnosis (ICD Code) Assessment Notes Treatment Notes Treatment Clinical Notes Section Notes 07/06/2024 Acute bronchitis, unspecified organism (ICD-10 - J20.9) Plan Of Treatment Medication Medication Name Sig Start Date Stop Date Notes Zithromax Z-Luis 250 MG 2 tablets on the first day, then 1 tablet daily for 4 days orally once a day; Duration: 5 days 06/20/2024 Next Appt Details Provider Name:Geovany Wright, 04/15/2025 08:45:00 AM, [address] [place] [address], [phone], Progress Notes * Mindy PRICE NDOB:[birth year] (84 yo F)Acc No.[id number]:07/06/2024 Patient: Mindy DIAS Ashley Provider: Kirk Caputo :1940 A ge:83 Y S ex:Female Date:07/06/2024 Address:[address] [place], [place] [id number] Pcp:Geovany Wright Subjective: * Chief Complaints: * 1 . Multum To Medispan Conversion Encounter. * Medical History: * Medications: T aking Folic Acid 1 MG Tablet 1 tab(s) orally once a day , Taking Ferrous Sulfate Dried ER 160 (50 Fe) MG Tablet Extended Release 1 tab(s) orally once a day , Taking Citracal Petites/Vitamin D 250 MG-200 INTL UNITS TABLET 1 TAB(S) ORALLY 2 TIMES A DAY , Notes to Pharmacist: *Please review and pick correct strength-formulation from [facility] options. If intended option is not shown, discontinue and re-order from Quick Search*, Taking B-12 1000 MCG Tablet 1 tab(s) orally once a day , Taking Prolia 60 MG/ML Solution Prefilled Syringe as directed subcutaneously every 6 months , Notes to Pharmacist: no auth required, Taking Allergy Relief (Cetirizine) 10 MG Tablet 1 tab(s) orally once a day , Taking Levothyroxine Sodium 100 MCG Tablet 1 tab(s) orally once a day , Taking Spironolactone 25 MG Tablet 1 tab(s) orally daily , Taking Carvedilol 25 MG Tablet 1 tab(s) orally 2 times a day Objective: * Vitals: Assessment: * Assessment: 1. A cute bronchitis, unspecified organism - J20.9 (Primary) Plan: * Treatment: * * Electronic signature of Prov ider Migration on 03/19/2025 at 08:11 AM EST Sign off status: Pending * Provider: Kirk leonard Migration Date: 0 07/06/2024 Generated for Leni olmos/Cheri/Ela on: 1 05/20/2024 08:11 AM EST
--- OUTSIDE RECORDS SUMMARY | 2025-01-23 04:00 | XMS_ITS ---
Author Organization [facility] Address [address] [facility] [address] [place] [address] Care Team Providers Care Financial Brokers Name Role Phone Geovany Wright Primary Care Provider Allergies No Known Allergies REASON FOR VISIT Medication follow up Medications Medication SIG (Take, Route, Frequency, Duration) Notes Start Date End Date Status Allergy Relief (Cetirizine) 10 MG 1 tab(s) orally once a day; Duration: 90 days Active Carvedilol 25 MG 1 tab(s) orally 2 times a day; Duration: 90 days Active Spironolactone 25 MG 1 tab(s) orally daily; Duration: 90 days Active Prolia 60 MG/ML as directed subcutaneously every 6 months; Duration: 30 days no auth required 08/17/2021 Active Levothyroxine Sodium 125 MCG 1 tablet in the morning on an empty stomach Orally Once a day; Duration: 90 days 10/14/2024 Active B-12 1000 MCG 1 tab(s) orally [...] Vaccine Route Administration Date Status Comme nts Fluzone High Dose IM Intramuscular 01/23/2025 Administered Social History Tobacco Use: Social History Observation Description Date Details (start date - stop date) Never Smoker NA - NA Smoking: Question Answer Notes Are you a: nonsmoker Additional Findings: Tobacco Non-User Current no n-smoker Vital Signs Temperature 97.9 degrees Fahrenheit 01/24/20 25 Blood pressure systolic 130 mm Hg 01/24/20 25 Blood pressure diastolic 82 mm Hg 025 Heart Rate 72 /min 01/23/2025 Height 5 ft 4 in in 01/23/2025 Weight 159 lbs 01/23/2025 BMI 27.29 kg/m2 01/23/2025 Encounters Encounter Location Date Provider Diagnosis [facility] [address] [address] 01/23/2025 Geovany Adriana Hyperlipemia, idiopa thic familial E78.5 ; Acquired hypothyroidism E03.9 ; Thrombocytopenia D69.6 ; Hypothyroidism associated with surgical procedure E89.0 ; Hypertension, essential I10 ; Routine medical exam Z00.00 and Encounter for immunization Z23 Assessments Encounter Date Diagnosis (ICD Code) Assessment Notes Treatment Notes Treatment Clinical Notes Section Notes 01/23/2025 Hyperlipemia, 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 No change in plans 01/23/2025 Acquired hypothyroidism (ICD-10 - E03.9) Clinically euthyroid, has been on a stable dose of levothyroxine replacement therapy. No changes in plan at this point. I will review labs personally 01/23/2025 Thrombocytopenia (ICD-10 - D69.6) History of thrombocytopenia , hematology notes reviewed. Will continue to monitor. 01/23/2025 Hypothyroidism associated with surgical procedure (ICD-10 - E89.0) Reviewed TSH from previous labs. Normal, no change in plan 01/23/2025 Hypertension, essential (ICD-10 - I10) Good blood pressure control, no change in plans 01/23/2025 Routine medical exam (ICD-10 - Z00.00) In regards to [employer] practitioner assessment form reviewed patient's Medicare wellness data No recent falls. Aged out of cancer screening. Up-to-date with vaccinations. Daughter is healthcare surrogate. Depression screening negative. 3/3 word recall. Lifelong non-smoker 01/23/2025 Encounter for immunization (ICD-10 - Z23) Plan Of Treatment Treatment Notes Assessment Notes Hyperlipemia, idiopathic familial Lipid profile excellent in the summer. No change in plans Acquired hypothyroidism Clinically euthy roid, has been on a stable dose of levothyroxine replacement therapy. No changes in plan at this point. I will review labs personally Thrombocytopenia History of thrombocytopenia, hematology notes reviewed. Will continue to monitor. Hypothyroidism associated wi th surgical procedure Reviewed TSH from previous labs. Normal, no change in plan Hypertension, essential Good blood press ure control, no change in plans Routine medical exam In regards to [employer] practitioner assessment form reviewed patient's Medicare wellness data No recent falls. Aged out of cancer screening. Up-to-date with vaccinations. Daughter is healthcare surrogate. Depression screening negative. 06/03 word recall. Lifelong non-smoker Next Appt Details Provider Name:Geovany Wright, 04/15/2025 08:45:00 AM, [address] [place] [address], [phone], Progress Notes * RANDOLPH Mindy NDOB:[birth year] (84 yo F)Acc No.[id number]:01/23/2025 Progress Notes Patient: Mindy DIAS Provider: Camelia Wright MD :1940 A ge:84 Y S ex:Female Date:01/23/2025 Address:[address] [place], [place] [id number] Subjective: * Chief Complaints: * 1 . Medication follow up. * HPI: g en: Here to follow-up her multiple chronic medical conditions. Also due for [employer] paf exam. Overall feels well. No concerns about medication, feels like she is doing well. No falls, good functional status. * ROS: F UNCTIONAL STATUS: ADLS I ndependent for all ADL/IADL. * Medical History: H ypothyroid, HTN, PREMATURE BEATS NEC, Tachycardia, unspecified, Depression with anxiety, colonoscopy September 2015 with tubular adenoma, Normal mammogram 06/2018, DEXA scan November 2018 with osteopenia with high fracture risk - repeated 6/24 and improved.. * Surgical History: a ppendectomy [...] *Please review and pick correct strength-formulation from [employer] options. If intended option is not shown, [...] N .K.D.A. Objective: * Vitals: N urse: be, Pain: 0, Temp: 97.9, RR: 16, HR: 72, BP: 130/82, Ht: 5 ft 4 in, Wt: 159, BMI:27.29. * Examination: E NT/Respiratory: General Appearance : [...] lear without rashes. Assessment: * Assessment: 1. A cquired hypothyroidism - E03.9 (Primary) 2 . H yperlipemia, idiopathic familial - E78.5 3 . T hrombocytopenia - D69.6 4 . H ypothyroidism associated with surgical procedure - E89.0 5 . H ypertension, essential - I10 6 . R outine medical exam - Z00.00 7 . E ncounter for immunization - Z23 Plan: * Treatment: 2. H yperlipemia, idiopathic familial Notes: Lipid profile excellent in the summer. No change in plans 3. T hrombocytopenia Notes: History of thrombocytopenia, hematology notes reviewed. Will continue to monitor. 4. H ypothyroidism associated with surgical procedure Notes: Reviewed TSH from previous labs. Normal, no change in plan 5. H ypertension, essential Notes: Good blood pressure control, no change in plans 6. R outine medical exam Notes: In regards to [employer] practitioner assessment form reviewed patient's Medicare wellness data No recent falls. Aged out of cancer screening. Up-to-date with vaccinations. Daughter is healthcare surrogate. Depression screening negative. /3 word recall. Lifelong non-smoker * Immunizations: Fluzone High Dose : 0.5 mL (Route: Intramuscular) given by KRISHNA Duarte on Right Deltoid * Procedure Codes: 9 6160 HEALTH RISK [id number], [address] Influenza High Dose Vaccine >65 Years Old, G0008 ADMINISTRATION-FLU VACCINE MEDICARE ONLY * * Sign off status: Completed true * Provider: Camelia Wright MD Date: Generated for Printi ng/Fahomag/eTransmitting on: 05/20/2024 08:11 AM EST History and Physical Notes * HPI (History of Present Illness) Category Sub-Category Detail Notes Category Not es gen Here to follow-up her multiple chronic medical conditions. Also due for [employer] paf exam. Overall feels well. No concerns about medication, feels like she is doing well. No falls, good functional status. Examination Category Sub-Category Detail Notes Category Not [...]
--- OUTSIDE RECORDS SUMMARY | 2025-03-19 08:12 | XMS_ITS | Patient Health Record ---
Author Organization [facility] Address [address] [facility] [place] [address] [place] [address] Care Team Providers Care Industrial Services Worker Name Role Phone Geovany Wright Primary Care Provider [phone] Poornima Yarbrough Unavailable [phone] Migration, Provider Unavailable Unavailable Allergies No Known Allergies Results Component Value Reference Range Notes THYROID PANEL WITH TSH (7444 ) Reviewed date:10/14/2024 11:43:18 AM Interpretation: Performing Lab:[facility] Vincent Manrique Notes/Report: NON-FASTING; NON-FASTING; NON-FASTING; NON-FASTING FASTING:YES FASTING: YES T3 UPTAKE 29 22-35 % T4 (THYROXINE), TOTAL 8.3 5.1-11.9 mcg/dL FREE T4 INDEX (T7) 2.4 1.4-3.8 TSH 27.71 0.40-4.50 mIU/L LIPID PANEL, STANDARD (7600) Reviewed date:10/14/2024 11:43:18 AM Interpretation: Performing Lab:ARTI [address] [employer], TCM BerthaHkpoYP[address] Vincent Manrique Notes/Report: NON-FASTING; NON-FASTING; NON-FASTING; NON-FASTING [...] LDL-C. Paulo GARNICA et al. MONIQUE. 2013;310(19): 6525-6962 (http://education.Oh My Green!/faq/LHF572) Reference range: <100 Desirable range <100 mg/dL for primary prevention; <70 mg/dL for patients with CHD or diabetic patients with > or = 2 CHD risk factors. LDL-C is now calculated using the [facility] CHOL/HDLC RATIO 4.2 <5.0 (calc) NON HDL CHOLESTEROL 177 <130 mg/dL (calc) For patients with diabetes plus 1 major ASCVD risk factor, treating to a non-HDL-C goal of <100 mg/dL (LDL-C of <70 mg/dL) is considered a therapeutic option. COMPREHENSIVE METABOLIC ZHOU August (19611) Reviewed date:10/14/2024 11:43:18 AM Interpretation: Performing Lab:ARTI, [facility], Greg YdtqKA[address] Vincent Manrique Notes/Report: NON-FASTING; NON-FASTING; NON-FASTING; NON-FASTING [...] 17 10-35 U/L ALT 13 6-29 U/L CBC (INCLUDES DIFF/PLT) (639 9) Reviewed date:10/14/2024 11:43:18 AM Interpretation: Performing Lab:ARTI [facility] Hihw[address] [facility], [place] [facility] SystemKyxzDJ[address] Vincent Manrique Notes/Report: NON-FASTING; NON-FASTING; NON-FASTING; NON-FASTING [...] MPV 11.8 7.5-12.5 fL ABSOLUTE NEUTROPHILS [phone] cells/uL ABSOLUTE LYMPHOCYTES 6558 174-9120 cells/uL ABSOLUTE MONOCYTES 523 200-950 cells/uL ABSOLUTE EOSINOPHILS 198 15-500 cells/uL ABSOLUTE BASOPHILS 28 0-200 cells/uL NEUTROPHILS 60.9 LYMPHOCYTES 25.5 MONOCYTES 9.5 EOSINOPHILS 3.6 BASOPHILS 0.5 PLATELET ESTIMATION ADEQUATE ADEQUATE THYROID PANEL WITH TSH (7444 ) Reviewed date:04/29/2024 10:29:08 AM Interpretation: Performing Lab:ARTI [facility] [id number] Scheduling Employee Scheduling Softwaretel [facility], [place] [facility] SystemLajnFY[address] Vincent Manrique Notes/Report: NON-FASTING; NON-FASTING; NON-FASTING; NON-FASTING FASTING:YES FASTING: YES T3 UPTAKE 33 22-35 % T4 (THYROXINE), TOTAL 10.8 5.1-11.9 mcg/dL FREE T4 INDEX (T7) 3.6 1.4-3.8 TSH 2.00 0.40-4.50 mIU/L LIPID PANEL, STANDARD (7600) Reviewed date:04/29/2024 10:29:08 AM Interpretation: Performing Lab:ARTI [facility] [employer] Mbsk[address] [facility]te[facility], [place] [facility] SystemSmeaZE[address] Vincent Manrique Notes/Report: NON-FASTING; NON-FASTING; NON-FASTING; NON-FASTING [...] LDL-C. Paulo SS et al. MONIQUE. 2013;310(19): 7187-2234 (http://education.Oh My Green!/faq/RML019) CHOL/HDLC RATIO 3.9 <5.0 (calc) NON HDL CHOLESTEROL 163 <130 mg/dL (calc) For patients with diabetes plus 1 major ASCVD risk factor, treating to a non-HDL-C goal of <100 mg/dL (LDL-C of <70 mg/dL) is considered a therapeutic option. COMPREHENSIVE METABOLIC PANE L (05498) Reviewed date:04/29/2024 10:29:08 AM Interpretation: Performing Lab:ARTI [facility] [id number] Scheduling Employee Scheduling SoftwareteMonmouth Medical Center, [place] [facility] SystemSqkfVX[address] Vincent Manrique Notes/Report: NON-FASTING; NON-FASTING; NON-FASTING; NON-FASTING [...] 9) Reviewed date:04/29/2024 10:29:08 AM Interpretation: Performing Lab:ARTI, [facility] Hospit[facility]1355 [facility], [place] [facility] SystemRuwvWP[address] Vincent Manrique Notes/Report: NON-FASTING; NON-FASTING; NON-FASTING; NON-FASTING [...] MPV 12.5 7.5-12.5 fL ABSOLUTE NEUTROPHILS 3350 4310-3836 cells/uL ABSOLUTE LYMPHOCYTES 1943 850-9711 cells/uL ABSOLUTE MONOCYTES 495 200-950 cells/uL ABSOLUTE EOSINOPHILS 132 15-500 cells/uL ABSOLUTE BASOPHILS 22 0-200 cells/uL NEUTROPHILS 60.9 LYMPHOCYTES 27.3 MONOCYTES 9.0 EOSINOPHILS 2.4 BASOPHILS 0.4 Medications Medication SIG (Take, Route, Frequency, Duration) Notes Start Date End Date Status Levothyroxine Sodium 125 MCG TAKE 1 TABLET EVERY MORNING ON AN EMPTY STOMACH; Duration: 90 Active Carvedilol 25 MG 1 tab(s) orally 2 times a day; Duration: 90 days Active Spironolactone 25 MG 1 tab(s) orally daily; Duration: 90 days Active Prolia 60 MG/ML as directed subcutaneously every 6 months; Duration: 30 days no auth required 08/17/2021 Active Allergy Relief (Cetirizine) 10 MG 1 tab(s) orally once a day; Duration: 90 days Active B-12 1000 MCG 1 tab(s) orally once a day Active Citracal Petites/Vitamin D 250 MG-200 INTL UNITS 1 TAB(S) ORALLY 2 TIMES A DAY; Duration: 30 DAY(S) *Please review and pick correct strength-formulat ion from [employer] options. If intended option is not shown, discontinue and re-order from Quick Search* 02/10/2012 Active Ferrous Sulfate Dried ER 160 (50 Fe) MG 1 tab(s) orally once a day Active Folic Acid 1 MG 1 tab(s) orally once a day Active Immunizations Vaccine Route Administration Date Status Comme nts Adacel (Tdap) IM Intramuscular 05/21/2015 Administered Covid Moderna Unknown 05/07/2020 Administered Covid Moderna Unknown 06/04/2020 Administered Fluzone High Dose IM Intramuscular 01/30/2018 Administered Fluzone High Dose IM Intramuscular 01/22/2019 Administered Fluzone High Dose IM Intramuscular 02/04/2020 Administered Fluzone High Dose IM Intramuscular 01/26/2021 Administered Fluzone High Dose IM Intramuscular 01/25/2022 Administered Fluzone High Dose IM Intramuscular 01/26/2023 Administered Fluzone High Dose IM Intramuscular 01/25/2024 Administered Fluzone High Dose IM Intramuscular 01/23/2025 Administered Influenza (Fluzone)--Medicare only IM Intramuscular 01/23/2015 Administered Influenza (Fluzone)--Medicare only IM Intramuscular 01/26/2016 Administered Influenza (Fluzone)--Medicare only IM Intramuscular 01/17/2017 Administered Pneumovax 23 IM Intramuscular 01/30/2018 Administered Prevnar PCV-13 (Pneumococcal conjugate 13) IM Intramuscular 05/21/2015 Administered Prevnar PCV-20 (Pneumococcal conjugate 20) IM Intramuscular 01/25/2022 Administered SHINGRIX IM Intramuscular 04/21/2022 Administered SHINGRIX IM Intramuscular 10/20/2022 Administered Social History Tobacco Use: Social History Observation Description Date Details (start date - stop date) Never Smoker NA - NA Smoking: Question Answer Notes Are you a: nonsmoker Additional Findings: Tobacco Non-User Current no n-smoker Problems Problem Type SNOMED Code ICD Code Onset Dates Problem Status W/U Status Risk Notes Problem Seasonal allergic rhinitis (919345583) Other seasonal allergic rhinitis (J30.2) Active confirmed Problem Allergic rhinitis (76829638) Other allergic rhinitis (J30.89) Active confirmed Problem Polymyalgia rheumatica (23268504) Polymyalgia rheumatica (M35.3) Active confirmed Problem Vitamin D deficiency (83949242) Vitamin D deficiency (E55.9) Active confirmed Problem Hyperlipidemia (04934121) Hyperlipemia, idiopathic familial (E78.5) Active confirmed Problem Essential hypertension (10689916) Hypertension, essential (I10) Active confirmed Problem Tubular adenoma of colon (510182575) Tubular adenoma of colon (D12.6) Active confirmed Problem Degeneration of lumbar intervertebral disc (50190055) Degenerative disc disease, lumbar (M51.36) Active confirmed Problem Thrombocytopenia (602234950) Thrombocytopenia (D69.6) Active confirmed Problem Acquired hypothyroidism (550456011) Acquired hypothyroidism (E03.9) Active confirmed Problem Osteoarthritis of multiple joints (224406275) Osteoarthritis of multiple joints, unspecified osteoarthritis type (M15.9) Active confirmed Problem Hypothyroidism (35049161) Hypothyroidism, unspecified type (E03.9) Active confirmed Problem Basal cell carcinoma of truncal skin (disorder) (740515314) Basal cell carcinoma, trunk (C44.519) Active confirmed Problem 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) Active confirmed Problem Microcytic anemia (962869374) Microcytic anemia (D50.9) Active confirmed Problem Primary hypertension (76115950) Primary hypertension (I10) Active confirmed Problem Otalgia of right ear (finding) (8111622647) Right ear pain (H92.01) Active confirmed Problem Age-related osteoporosis (008067414) Osteoporosis without current pathological fracture, unspecified osteoporosis type (M81.0) Active confirmed Problem Postmenopausal osteoporosis (404836688) 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) Active confirmed Problem 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 Vital Signs Heart Rate 72 /min 01/23/2025 Temperature 97.9 degrees Fahrenheit 01/23/2025 Blood pressure diastolic 82 mm Hg 01/23/2025 Height 5 ft 4 in in 01/23/2025 Blood pressure systolic 130 mm Hg 01/23/2025 Weight 159 lbs 01/23/2025 BMI 27.29 kg/m2 01/23/2025 Encounters Encounter Location Date Provider Diagnosis [facility] [address] [place], [place] [address] 07/06/2024 Provider Migration Acute bronchitis, unspecified organism J20.9 [facility] [address] [address] 04/25/2024 Geovany Adriana Acquired hypothyroid ism E03.9 ; Thrombocytopenia D69.6 ; Osteoarthritis of multiple joints, unspecified osteoarthritis type M15.9 ; Hypertension, essential I10 ; Postmenopausal osteoporosis M81.0 and Routine medical exam Z00.00 [facility] [address] [address] 06/20/2024 Geovany Wright Acute bronchitis, unspecified organism J20.9 [facility] [address] [address] 07/25/2024 Geovany Wright Hypertension, essent ial I10 ; Acquired hypothyroidism E03.9 ; Hyperlipemia, idiopathic familial E78.5 and Osteoarthritis of multiple joints, unspecified osteoarthritis type M15.9 [facility] [address] [address] 10/10/2024 Geovany Adriana Acquired hypothyroid ism E03.9 ; Hyperlipemia, idiopathic familial E78.5 ; Thrombocytopenia D69.6 ; Hypothyroidism associated with surgical procedure E89.0 and Routine medical exam Z00.00 [facility] [address] [address] 01/17/2025 Poornima McNees Viral URI J06.9 [facility] [address] [address] 01/23/2025 Geovany Wright Hyperlipemia, idiopa thic familial E78.5 ; Acquired hypothyroidism E03.9 ; Thrombocytopenia D69.6 ; Hypothyroidism associated with surgical procedure E89.0 ; Hypertension, essential I10 ; Routine medical exam Z00.00 and Encounter for immunization Z23 [facility] [address] [address] 10/14/2024 Geovany Wright [facility] [address] [address] 01/23/2025 Geovany Wright Assessments Encounter Date Diagnosis (ICD Code) Assessment Notes Treatment Notes Treatment Clinical Notes Section Notes 06/20/2024 Acute bronchitis, unspecified organism (ICD-10 - [...] this point. I will review labs personally 04/25/2024 Thrombocytopenia (ICD-10 - D69.6) Chronic, stable. Follows with hematology at [facility], f/u 08/2024. Plt count stable >100k, repeat today. 04/25/2024 Acquired hypothyroidism (ICD-10 - E03.9) Chronic, stable. Continue synthroid 100 mcg daily. Repeat TSH today. Will personally review all labs and adjust medications as indicated. 04/25/2024 Osteoarthritis of multiple joints, unspecified osteoarthritis type (ICD-10 - M15.9) Chronic, controlled. Very good functional status. Continue tylenol PRN. 01/23/2025 Thrombocytopenia (ICD-10 - D69.6) History of thrombocytopenia , hematology notes reviewed. Will continue to monitor. 10/10/2024 Thrombocytopenia (ICD-10 - D69.6) History of thrombocytopenia , hematology notes reviewed. Will continue to monitor. 07/25/2024 Hyperlipemia, idiopathic familial (ICD-10 - E78.5) LDL under good control, remains on statin 07/25/2024 Osteoarthritis of multiple joints, unspecified osteoarthritis type (ICD-10 - M15.9) Currently doing well, good pain control. 10/10/2024 Hypothyroidism associated with surgical procedure (ICD-10 - E89.0) 01/23/2025 Hypothyroidism associated with surgical procedure (ICD-10 - E89.0) Reviewed TSH from previous labs. Normal, no change in plan 04/25/2024 Hypertension, essential (ICD-10 - I10) Chronic, controlled. Continue coreg 25 mg BID. 04/25/2024 Postmenopausal osteoporosis (ICD-10 - M81.0) Chronic, stable. Continue prolia, refilled today. Repeat DXA 07/2025. 01/23/2025 Hypertension, essential (ICD-10 - I10) Good blood pressure control, no change in plans 10/10/2024 Routine medical exam (ICD-10 - Z00.00) No recent falls. Aged out of cancer screening. Up-to-date with vaccinations. Daughter is healthcare surrogate. Depression screening negative. 06/03 word recall. Lifelong non-smoker 01/23/2025 Routine medical exam (ICD-10 - Z00.00) In regards to [employer] practitioner assessment form reviewed patient's Medicare wellness data No recent falls. Aged out of cancer screening. Up-to-date with vaccinations. Daughter is healthcare surrogate. Depression screening negative. 3 word recall. Lifelong non-smoker 04/25/2024 Routine medical exam (ICD-10 - Z00.00) Patient's aged out of colonoscopy or other cancer screening. Up-to-date with vaccines. See notes above about osteoporosis screening. Cognitive impairment not noted, excellent functional status. 01/23/2025 Encounter for immunization (ICD-10 - Z23) Plan Of Treatment Pending Test Test Name Order Date Ultrasound : Carotids 08/02/2013 Ultrasound : Kidneys, Bilateral 08/03/19 14 Echocardiogram 08/02/2013 C-Sed Rate (ESR) 04/23/2019 C-CMP 04/23/2019 C-CMP 03/21/2016 C-LIPID PANEL 04/23/2019 C-TSH 04/23/2019 C-CARY 01/12/2016 C-ALDOLASE 01/12/2016 C-THYROID PROFILE 01/30/2018 C-THYROID PROFILE 08/04/2015 C-THYROID PROFILE 07/10/2018 C-THYROID PROFILE 07/23/2019 C-CRP 01/12/2016 VENIPUNCT, ROUTINE* 05/21/2015 Doppler: Duplex Renal Artery 08/02/2013 M-Complete Blood Count Man Dif 3 M-Miscellaneous Test 09/06/2022 M-Comprehensive Metabolic Panel 09/07/19 23 Future Test Test Name Order Date H-TSH 2016 C-THYROID PROFILE 07/31/2017 Next Appt Details Provider Name:Geovanyari Wright, 04/15/2025 08:45:00 AM, [address] [place] [address], [place], [address], Insurance Providers Payer Name Payer Address Payer Phone Subscriber Number Group Number Insured Name Patient Relationship to Insured Coverage Start Date Coverage End Date [employer] [address] [address] [place] [address] [phone] [id number] Mindy Price Self - patient is the [...]
[2025-03-19 08:15] VITALS: BP 138/90; PULSE 78; RESP 20; O2SAT 97
[2025-03-19] MEDS: DENOSUMAB 60 MG/ML SYRINGE SUBCUT (08:20)
== END 2025-03-19 23:59 | disposition home or self-care (01) ==
LOC: INF 08:09
PROVIDERS: PCP Internal Medicine Adolescent Medicine; Visit Provider Internal Medicine Adolescent Medicine
DX: M81.0 Age-related osteoporosis without current pathological fracture (principal)
CPT/HCPCS: 96372; J0897